=== PATIENT | female | born 1980 | race Caucasian/White ===

== ENCOUNTER → 2020-09-23 17:39 | Outpatient (CLI) | payer BC, OTHER, SELFPAY ==
--- NOTE | ~2020-09-23 | MM_ITS ---
EXAMINATION: MM screening [facility] BI w aldair HISTORY: Screening mammogram TECHNIQUE: Craniocaudal and mediolateral oblique 3-D tomosynthesis images were obtained and synthetic 2-D images were generated. CAD analysis was submitted and interpreted. COMPARISON: 09/14/2015 BREAST PARENCHYMAL COMPOSITION: The breasts are heterogeneously dense, which may obscure small masses . FINDINGS: RIGHT BREAST: There is no evidence of suspicious mass, calcification, or architectural distortion to suggest malignancy. There has been no significant interval change. LEFT BREAST: An asymmetry is present in the posterior third of the breast in line with the nipple axi s on the craniocaudal view. IMPRESSION: 1. Left breast asymmetry on the craniocaudal view. 2. Additional mammographic views and possible breast ultrasound are recommended. BI-RADS Category 0: Incomplete: Needs additional imaging evaluation. Reviewed, dictated and finalized at location A. IMPRESSION: 1. Left breast asymmetry on the craniocaudal view. 2. Additional mammographic views and possible breast ultrasound are recommended . BI-RADS Category 0: Incomplete: Needs additional imaging evaluation.
== END ==
PROVIDERS: Visit Provider Nurse Practitioner Obstetrics & Gynecology
DX: Z12.31 Encounter for screening mammogram for malignant neoplasm of breast (principal); R92.8 Other abnormal and inconclusive findings on diagnostic imaging of breast
CPT/HCPCS: 77063; 77067

== ENCOUNTER 2020-10-19 12:39 | Outpatient (CLI) | payer BC, OTHER, SELFPAY ==
--- NOTE | ~2020-10-19 | MMUS_ITS ---
EXAMINATION: MM diagnostic [facility]ary LT w aldair, US breast LT complete HISTORY: Follow-up left breast asymmetry TECHNIQUE: Additional 3-D tomosynthesis images of the left breast were performed and synthetic 2-D im ages were generated. CAD analysis was submitted and interpreted. High resolution complete left breast ultrasound was performed. COMPARISON: Comparison to multiple prior studies sequentially, with oldest reviewed study dated 10/2015. BREAST PARENCHYMAL COMPOSITION: The breasts are heterogenously dense, which may obscure small masses. FINDINGS: MAMMOGRAPHIC FINDINGS: There are no suspicious masses, calcifications or architectural distortion in the left breast to sugg est malignancy. ULTRASOUND: Complete left breast ultrasound: Normal heterogeneous echotexture without focal solid or cystic mass. IMPRESSION: 1. No evidence for malignancy in the left breast. 2. Routine yearly screening mammogram and regular clinical breast examination are recommended. BI-RADS Category 1: Negative Reviewed, dictated and finalized at location A. IMPRESSION: 1. No evidence for malignancy in the left breast. 2. Routine yearly screening mammogram and regular clinical breast examination a re recommended. BI-RADS Category 1: Negative
== END 2020-10-19 12:40 | disposition home or self-care (01) ==
LOC: ANHIMG 12:44
PROVIDERS: Visit Provider Nurse Practitioner Obstetrics & Gynecology
DX: R92.8 Other abnormal and inconclusive findings on diagnostic imaging of breast (principal)
CPT/HCPCS: 76641; 77061; 77065; G0279

== ENCOUNTER 2021-12-13 10:15 | Outpatient (CLI) | payer BC, OTHER, SELFPAY ==
--- NOTE | ~2021-12-13 | MM_ITS ---
EXAMINATION: MM screening [facility] BI w aldair HISTORY: Screening mammogram TECHNIQUE: Craniocaudal and mediolateral oblique 3-D tomosynthesis images were obtained and synthetic 2-D images were generated. CAD analysis was submitted and interpreted. COMPARISON: 10/19/2020 diagnostic left mammogram and complete left breast ultrasound examination 09/23/2020, 09/24/2015 bilateral screening mammogram examinations BREAST PARENCHYMAL COMPOSITION: The breasts are heterogeneously dense, which may obscure small masses . FINDINGS: Stable mild fibroglandular asymmetry. There is no evidence of suspicious mass, calcificatio n, or architectural distortion to suggest malignancy in either breast. There has been no suspicious i nterval change. IMPRESSION: 1. No mammographic evidence of malignancy. 2. Recommend routine screening mammography in one year. BI-RADS Category 1: Negative Reviewed, dictated and finalized at location A. 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
== END 2021-12-13 10:16 | disposition home or self-care (01) ==
PROVIDERS: PCP Internal Medicine; Visit Provider Obstetrics & Gynecology
DX: Z12.31 Encounter for screening mammogram for malignant neoplasm of breast (principal)
CPT/HCPCS: 77063; 77067

== ENCOUNTER → 2022-12-21 15:46 | Outpatient (CLI) | payer BC, OTHER, SELFPAY ==
--- NOTE | ~2022-12-21 | MM_ITS ---
EXAMINATION: MM screening [facility] BI w aldair HISTORY: Screening mammogram TECHNIQUE: Craniocaudal and mediolateral oblique 3-D tomosynthesis images were obtained and synthetic 2-D images were generated. CAD analysis was submitted and interpreted. COMPARISON: 12/13/2021, 10/19/2020, 09/23/2020 BREAST PARENCHYMAL COMPOSITION: The breasts are heterogeneously dense, which may obscure small masses . FINDINGS: No suspicious mass, calcification, or architectural distortion are identified in either nik ast to suggest malignancy. There has been no suspicious interval change. IMPRESSION: 1. No mammographic evidence of malignancy. 2. Recommend routine screening mammography in one year. BI-RADS Category 1: Negative Reviewed, dictated and finalized at location A. [employer]
== END ==
PROVIDERS: PCP Nurse Practitioner Obstetrics & Gynecology; Visit Provider Nurse Practitioner Obstetrics & Gynecology
DX: Z12.31 Encounter for screening mammogram for malignant neoplasm of breast (principal)
CPT/HCPCS: 77063; 77067

== ENCOUNTER 2023-05-10 08:28 | Outpatient (CLI) | payer BC, OTHER, SELFPAY ==
[2023-05-10 13:13] LABS: Basophils Absolute Auto 0.1 K/mm3 (0.0-0.1); Basophils Percent Auto 0.7 % (0.2-1.2); Eosinophils Absolute Auto 0.1 K/mm3 (0-0.3); Eosinophils Percent Auto 0.9 % (0-4.4); Hematocrit 42.2 % (37.0-47.0); Hemoglobin 13.8 g/dL (12.0-15.0); Immature Granulocyte Absolute 0.02 K/mm3 (0.00-0.031); Immature Granulocyte Percent A 0.3 % (0-0.5); Lymphocytes Absolute Auto 1.59 K/mm3 (0.9-3.2); Lymphocytes Percent Auto 23.2 % (18.3-44.2); Mean Corpuscular HGB Conc 32.7 g/dl (32-36); Mean Corpuscular Hemoglobin 31.4 pg (26-34); Mean Corpuscular Volume 96.1 fl (80-100); Mean Platelet Volume 11.2 fl (7.4-10.4); Monocytes Absolute Auto 0.4 K/mm3 (0.1-0.6); Monocytes Percent Auto 5.8 % (2.6-8.5); Neutrophils Absolute Auto 4.7 K/mm3 (1.3-6.7); Neutrophils Percent Auto 69.1 % (45.5-73.1); Platelet Count Result 184 k/mm3 (150-375); Red Blood Count 4.39 M/mm3 (4.2-5.4); Red Cell Distribution Width 11.8 % (11.5-14.5); White Blood Count 6.9 K/mm3 (4.5-10.0)
[2023-05-10 13:24] LABS: Alanine Aminotransferase 15 U/L (6-35); Albumin Level 4.3 g/dL (3.5-5.1); Alkaline Phosphatase 65 U/L (38-126); Anion Gap 5 mmol/L (4-12); Aspartate Amino Transferase 52 U/L (14-36); Bilirubin,Total 0.5 mg/dL (0.2-1.3); Blood Urea Nitrogen 17 mg/dL (7-17); Calcium 9.6 mg/dL (8.4-10.2); Carbon Dioxide 25 mmol/L (22-30); Chloride 107 mmol/L (98-107); Cholesterol 157 mg/dL (0-200); Estimated Glomerular Filt Rate > 60; Glucose 94 mg/dL (65-110); HDL Direct 49 mg/dL; Potassium 4.7 mmol/L (3.4-5.0); Sodium 137 mmol/L (137-145); Triglycerides 120 mg/dL (<150)
[2023-05-10 21:24] LABS: LDL Cholesterol Direct 84 mg/dL
== END 2023-05-10 08:29 | disposition home or self-care (01) ==
LOC: ANHGOSHLAB 08:30
PROVIDERS: PCP Internal Medicine; Visit Provider Internal Medicine
DX: E66.9 Obesity, unspecified (principal); R03.0 Elevated blood-pressure reading, without diagnosis of hypertension; Z13.220 Encounter for screening for lipoid disorders; Z13.29 Encounter for screening for other suspected endocrine disorder
CPT/HCPCS: 36415; 80053; 80061; 85025

== ENCOUNTER 2023-07-19 08:32 | Outpatient (CLI) | payer BC, OTHER, SELFPAY ==
[2023-07-19 16:19] LABS: Alanine Aminotransferase 14 U/L (6-35); Albumin Level 4.6 g/dL (3.5-5.1); Alkaline Phosphatase 69 U/L (38-126); Aspartate Amino Transferase 44 U/L (14-36); Bilirubin,Total 0.6 mg/dL (0.2-1.3)
== END 2023-07-19 08:33 | disposition home or self-care (01) ==
PROVIDERS: PCP Internal Medicine; Visit Provider Internal Medicine
DX: R74.01 Elevation of levels of liver transaminase levels (principal)
CPT/HCPCS: 36415; 80076

== ENCOUNTER 2023-09-04 08:10 | Outpatient (CLI) | payer BC, OTHER, SELFPAY ==
[2023-09-04 18:51] LABS: Alanine Aminotransferase 17 U/L (6-35); Albumin Level 4.3 g/dL (3.5-5.1); Alkaline Phosphatase 70 U/L (38-126); Aspartate Amino Transferase 26 U/L (14-36); Bilirubin,Total 0.6 mg/dL (0.2-1.3)
== END 2023-09-04 08:11 | disposition home or self-care (01) ==
LOC: ANHGOSHLAB 08:12
PROVIDERS: PCP Internal Medicine; Visit Provider Internal Medicine
DX: R74.01 Elevation of levels of liver transaminase levels (principal)
CPT/HCPCS: 36415; 80076

== ENCOUNTER 2024-02-01 09:00 | Outpatient (CLI) | payer BC, OTHER, SELFPAY ==
--- NOTE | ~2024-02-01 | MM_ITS ---
EXAMINATION: MM screening [facility] BI w aldair HISTORY: Screening TECHNIQUE: Craniocaudal and mediolateral oblique 3-D tomosynthesis images were obtained and synthetic 2-D images were generated. CAD analysis was submitted and interpreted. COMPARISON: 12/21/2022 and dating back to 09/14/2015 BREAST PARENCHYMAL COMPOSITION: The breasts are heterogeneously dense, which may obscure small masses . FINDINGS: Punctate calcifications detected bilaterally, stable and benign in appearance, dermal in or igin. Stable parenchymal pattern without suspicious microcalcifications, architectural distortion, discrete masses or significant asymmetry. IMPRESSION: 1. No mammographic evidence of malignancy. 2. Recommend routine screening mammography in one year. BI-RADS Category 2: Benign finding(s). Reviewed, dictated and finalized at location A. 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
--- OUTSIDE RECORDS SUMMARY | 2024-02-09 00:01 | XMS_ITS | Continuity of Care Document ---
Author Organization [facility], [place] Address [address] [address] [place] [address] Care Team Providers Care Non Destructive Testing Supervisor Name Role Phone TRISTAN MARTINEZ Primary Care Provider Assessment Encounter Date Assessment Date Assessment LastModified by Organization Details LastModified Time 12/13/2023 12/13/2023 Annual gynecological exam performed. Patient will come back in a year unless there are new symptoms. Not available 11/26/2023 12:37:09 Plan of Treatment Reminders Order Date Submit Date Provider Last Modified By Organization Details Last Modified Time Details Appointments None recorded. Lab pap, IG + HR HPV - HPV regardless but if HPV is positive need subtyping 16,18/45Add CT/GC/Trich 2023 [facility] (Lab), [address], [place], [address], 4 10:55:04 Referral None recorded. Procedures None recorded. Surgeries None recorded. Imaging MAMMO, screening, digital, bilateral 2023 024 [facility], [address], [facility], [place], [address], 4 04:02:17 Medication Orders None recorded. Patient TargetsNo targets recorded. Patient InstructionsNo instructions recorded. Reason for Referral None Reported. Results Created Date Observation Date Name Description Value Unit Range Abnormal Flag Note LastModifiedBy Organization Detail LastModifiedTime 02/01/20 24 02/01/2024 imagi ng/di agnos tic resul t No observ ation record ed. [facility] [address], [place], [address], 02/05/2024 12:42:32 Result Notes None recorded. Problems Name Problem SNOMED Code Status Onset Date Resolution Date Notes Provider Name and Address Organization Details Recorded Time Elevated blood-pr essure reading without diagnosi s of hyperten magen [id number] Completed 201509/06/2020 Elevated blood-pr essure reading, without diagnosi s of hyperten magen;Rec orded Elsewher e: No Locat ion: [facility] S ource: [employer] neelima: N Madelinti ce ID: 0001 Jonny lable Time: 04:45:00 PM Eneida hyman [facility] 17:06:23 Venereal disease screenin g Completed 201409/06/2020 Screenin g examinat ion for venereal disease; Recorded Elsewher e: No Locat ion: [facility] S ource: [employer] neelima: N Madelinti ce ID: 0001 Jonny lable Time: 08:30:00 AM Eneida hyman, [facility] 17:07:20 Pregnanc y test positive [id number] Completed 201109/06/2020 Pregnanc y examinat ion or test, positive result;R ecorded Elsewher e: No Locat ion: [facility] S ource: [employer] neelima: N Practi ce ID: 0001 Jonny lable Time: 11:00:00 AM Eneida hyman [facility] 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 1 17:07:10 Steriliz ation procedur e Completed 201609/06/2020 Encounte r for steriliz ation;Re corded Elsewher e: No [facility] S ource: [employer]ceiver neelima: N Madelinti ce ID: 0001 Jonny lable Time: 09:00:00 AM Eneida Antunez [facility], [facility] 1 17:07:15 Atypical squamous cells of undeterm ined signific ance on cervical Papanico laou smear [id number] Completed 201809/06/2020 Atyp squam cell of undet signfc cyto smr crvx (ASC-US) ;Recorde d Elsewher e: No Locat ion: [facility] S ource: [employer] neelima: N Alejandra ce ID: 0001 Jonny lable Time: 08:15:00 AM Eneida Antunez [facility] 1 17:06:19 Placenta previa with hemorrha ge - not delivere d [id number] Completed 201109/06/2020 Hemorrha ge from placenta previa, antepart um;Recor ded Elsewher e: No Locat ion: [facility] S ource: [employer] neelima: N Alejandra ce ID: 0001 Jonny lable Time: 08:15:00 AM Eneida Antunez [facility], [facility] 1 17:06:50 Pregnanc y test negative [id number] Completed 201409/06/2020 Encounte r for pregnanc y test, result negative ;Recorde d Elsewher e: No Locat ion: [facility] S ource: [employer] neelima: N Madelinti ce ID: 0001 Jonny lable Time: 08:30:00 AM Eneida Antunez [facility] 1 17:06:53 Malaise and fatigue [id number] Completed 201409/06/2020 Fatigue / Malaise; Recorded Elsewher e: No Locat ion: Conrad cerna [facility]: N Madelinti ce ID: 0001 Jonny lable Time: 08:30:00 AM Eneida Antunez [facility] 17:06:44 Screenin g for malignan t neoplasm of cervix Completed 201109/06/2020 Screenin g for malignan t neoplasm s of the cervix;R ecorded Elsewher e: No Locat ion: Siomara nehemiah [facility] S ource: [facility] neelima: N Madelinti ce ID: 0001 Jonny lable Time: 11:00:00 AM Eneida Antunez [facility] 17:07:02 Pelvic and perineal pain [id number] Completed 201809/06/2020 Pelvic and perineal pain;Rec orded Elsewher e: No Locat ion: Conrad cerna [facility] S ource: [facility] neelima: N Madelinti ce ID: 0001 Jonny lable Time: 09:45:00 AM Eneida Antunez [facility] 17:06:48 Body mass index 30+ - obesity [id number] Completed 201506/29/2020 Body mass index (BMI) 31.0-31. 9, adult;Re corded Elsewher e: No [facility]: [facility] neelima: N Madelinti ce ID: 0001 Jonny lable Time: 04:45:00 PM Eli Alford [facility] 1 10:02:38 Family planning surveill ance Completed 201209/06/2020 Contrace ptive surveill ance, unspecif ied;Thony rded Elsewher e: No [facility] neelima: N Madelinti ce ID: 0001 Jonny lable Time: 11:00:00 AM Eneida Antunez [facility] 17:06:[address] Concept Completed 201609/06/2020 Encntr for general adult medical exam w/o abnormal findings ;Recorde d Elsewher e: No Locat ion: [facility] S ource: [employer] neelima: N Madelinti ce ID: 0001 Jonny lable Time: 09:30:00 AM Eneida Antunez [facility] 17:07:07 Removal of intraute rine device Completed 201609/06/2020 Encounte r for removal of intraute rine contrace ptive device;R ecorded Elsewher e: No Locat ion: [facility] S ource: [employer] neelima: N Madelinti ce ID: 0001 Jonny lable Time: 08:45:00 AM Eneida Antunez [facility] 17:06:58 Hyperten sive disorder [id number] Completed 201709/06/2020 HTN;Thony rded Elsewher e: No Locat ion: [facility] S ource: [employer] neelima: N Madelinti ce ID: 0001 Jonny lable Time: 08:30:00 AM Eneida Antunez [facility] 17:06:32 Low grade squamous intraepi thelial lesion on cervical Papanico laou smear [id number] 105 Completed 201809/06/2020 Low grade intrepit h lesion cyto smr crvx (LGSIL); Recorded Elsewher e: No Locat ion: [facility] S ource: [employer] neelima: N Madelinti ce ID: 0001 Jonny lable Time: 08:15:00 AM Eneida Antunez [facility] 17:06:39 Adult health examinat ion Completed 201106/29/2020 Routine Medical Exam;Rec orded Elsewher e: No Locat ion: [facility] S ource: [employer] neelima: N Madelinti ce ID: 0001 Jonny lable Time: 02:45:00 PM Eli Alford [facility] 10:02:31 Contrace ptive sheath status [id number] Completed 201706/29/2020 Encounte r for initial prescrip tion of other contrace ptives;R ecorded Elsewher e: No Locat ion: [facility] S ource: [employer] neelima: N Madelinti ce ID: 0001 Jonny lable Time: 01:00:00 PM Eli Alford [facility] 1 10:02:43 Speciali zed medical examinat ion Completed 201409/06/2020 Other specifie d chlamydi al diseases ;Recorde d Elsewher e: No Locat ion: [facility] S ource: [facility] neelima: N Madelinti ce ID: 0001 Jonny lable Time: 08:30:00 AM Eneida Antunez [facility] 1 17:07:13 Abdomina l bloating [id number] Completed 201806/29/2020 Bloating ;Recorde d Elsewher e: No Locat ion: [facility] S ource: [employer] neelima: N Madelinti ce ID: 0001 Jonny lable Time: 01:30:00 PM Eliamalia Alford [facility] 1 10:02:29 Clinical finding Completed 201906/29/2020 Abnormal findings on dx imaging of [facility] body structur es;Recor ded Elsewher e: No Locat ion: [facility] S ource: [employer] Re[employer] neelima: N Madelinti ce ID: 0001 Jonny lable Time: 08:15:00 AM Eli Alford [facility] 1 10:02:41 Obesity [id number] Completed 201409/06/2020 Obesity; Recorded Elsewher e: No Locat ion: [facility] S ource: [employer] neelima: N Practi ce ID: 0001 Jonny lable Time: 08:30:00 AM Eneida Antunez [facility] 17:06:47 Evaluati on finding Completed 201806/29/2020 Unsp abnormal cytolog findings in specmn from cervix uteri;Re corded Elsewher e: No Locat ion: [facility] S ource: [employer] neelima: N Practi ce ID: 0001 Jonny lable Time: 01:30:00 PM Eli Alford [facility] 10:02:57 Lymphade nopathy [id number] Completed 201109/06/2020 Enlargem ent of lymph nodes;Re corded Elsewher e: No Locat ion: [facility] S ource: [employer] Receiver neelima: N Practi ce ID: 0001 Jonny lable Time: 11:00:00 AM Eneida Antunez [facility] 1 17:06:42 Educatio n Completed 201606/29/2020 Encounte r for oth general cnsl and advice on contrace ption;Pr actice ID: 0001 Eli Alford [facility] 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 17:07:09 Lesion of ovary Completed 201806/29/2020 Other ovarian cyst, left side;Pra ctice ID: 0001 Eli hyman [facility] 10:02:50 Mild hypereme sis-not delivere d [id number] Completed 201109/06/2020 Mild hypereme sis gravidar um, antepart um;Recor ded Elsewher e: No Locat ion: Conrad cerna [facility] S ource: [employer] neelima: N Practi ce ID: 0001 Jonny lable Time: 03:00:00 PM Eneida Antunez [facility] 1 17:06:45 Speciali zed medical examinat ion Completed 201209/06/2020 Gynecolo gical Examinat ion;Thony rded Elsewher e: No Locat ion: [facility] nehemiah [facility] S ource: [employer] Receiver neelima: N Practi ce ID: 0001 Jonny lable Time: 08:30:00 AM Eneida Antunez [facility] 1 17:07:12 Lesion of ovary Completed 201806/29/2020 Other ovarian cyst, unspecif ied side;Rec orded Elsewher e: No [facility] S ource: [employer] Receiver neelima: N Practi ce ID: 0001 Jonny lable Time: 04:11:41 PM Eli hyman [facility] 1 10:02:52 Infectio n screenin g Completed 201409/06/2020 Encounte r for screenin g for oth infec/pa rastc diseases ;Recorde d Elsewher e: No Locat ion: [facility] S ource: [employer] neelima: N Madelinti ce ID: 0001 Jonny lable Time: 08:30:00 AM Eneida Antunez [facility] 1 17:06:34 Routine antenata l care Completed 201109/06/2020 Supervis ion of other normal pregnanc y;Record ed Elsewher e: No Locat ion: [facility] S ource: [employer] Receiver neelima: N Practi ce ID: 0001 Jonny lable Time: 11:00:00 AM Eneida Antunez [facility] 1 17:07:00 Syphilis test finding [id number] Completed 201409/06/2020 Encntr screen for infectio ns w sexl mode of transmis s;Record ed Elsewher e: No Locat ion: Conrad cerna [facility] S ource: [employer] Receiver neelima: N Practi ce ID: 0001 Jonny lable Time: 08:30:00 AM Eneida Antunez [facility] 17:07:16 Insertio n of intraute rine contrace ptive device Completed 201209/06/2020 INSERTIO N OF IUD;Thony rded Elsewher e: No Locat ion: [facility] S ource: [employer] Receiver neelima: N Practi ce ID: 0001 Jonny lable Time: 01:15:00 PM Eneida Antunez [facility] 17:06:35 Primigra carter [id number] Completed 201109/06/2020 Supervis ion of normal first pregnanc y;Record ed Elsewher e: No [facility] [employer] Receiver neelima: N Practi ce ID: 0001 Jonny lable Time: 02:30:00 PM Eneida Antunez [facility] 17:06:56 Postpart um care Completed 201109/06/2020 Routine postpart um follow-u p;Record ed Elsewher e: No Locat ion: [facility] S ource: [employer] Receiver neelima: N Practi ce ID: 0001 Jonny lable Time: 09:15:00 AM Eneida Antunez [facility] 17:06:51 Irregula r intermen strual bleeding [id number] Completed 201209/06/2020 Metrorrh agia;Rec orded Elsewher e: No Locat ion: [facility] S ource: [employer] Receiver neelima: N Practi ce ID: 0001 Jonny lable Time: 11:00:00 AM Eneida Antunez [facility] 1 17:06:37 Human papillom avirus deoxyrib onucleic acid detected , high risk on cervical specimen [id number] Completed 201809/06/2020 Cervical high risk HPV DNA test positive ;Recorde d Elsewher e: No [facility] ource: [employer] Receiver neelima: N Alejandra ce ID: 0001 Jonny lable Time: 04:11:41 PM Eneida Antunez [facility], [facility] 1 17:06:28 Hypereme sis gravidar um with metaboli c disturba nce - not delivere d [id number] Completed 201109/06/2020 Hypereme sis gravidar um with metaboli c disturba nce, antepart um;Recor ded Elsewher e: No Locat ion: [facility] S ource: [employer] Receiver neelima: N Alejandra ce ID: 0001 Jonny lable Time: 02:45:00 PM Eneida Antunez [facility], [facility] 1 17:06:30 Amenorrh ea [id number] Completed 201106/29/2020 Absence of menstrua tion;Rec orded Elsewher e: No Locat ion: [facility] S ource: [employer] Receiver neelima: Patel Roberts ce ID: 0001 Jonny lable Time: 11:00:00 AM Eli Alford [facility], [facility] 1 10:02:33 Central nervous system malforma tion in fetus affectin g obstetri danielle care [id number] Completed 201109/06/2020 Central nervous system malforma tion in fetus, antepart um;Recor ded Elsewher e: No Locat ion: [facility] S ource: [employer] Milk Receiver neelima: N Madelinti ce ID: 0001 Jonny lable Time: 02:00:00 PM Eneida Antunez [facility], [facility] 1 17:06:20 anatomy study Completed 201109/06/2020 SCRN ANATMC SURVEY;P ractice ID: 0001 Eneida hyman, [facility] 17:06:27 Complica tion related to pregnanc y Completed 201109/06/2020 Unspecif ied antepart um complica tion;Pra ctice ID: 0001 Eneida Antunez [facility], [facility] 17:06:22 Twin pregnanc y with antenata l problem [id number] Completed 201109/06/2020 Twin pregnanc y, antepart um conditio n or complica tion;Pra ctice ID: 0001 Eneida Antunez [facility], [facility] 17:07:19 Delivery normal [id number] Completed 201106/29/2020 Normal delivery ;Practic e ID: 0001 Eli Alford [facility], [facility] 10:02:47 Single live [id number] Completed 201109/06/2020 Mother with single liveborn ;Practic e ID: 0001 Eneida Antunez [facility], [facility] 17:07:06 Screenin g for malignan t neoplasm of rectum Completed 201409/06/2020 Screenin g for malignan t neoplasm s of the rectum;P ractice ID: 0001 Eneida Antunez [facility], [facility] 17:07:04 Problem Notes None recorded. Procedures Surgical History Date Name Laterality Status Provider Name and Address Organization Details Recorded Time 06/12/19 24 Date of Last Pap Smear completed Lizzette Mei [facility] 11/26/2023 12:36:21 12/22/19 23 Date of Last Mammogram completed Adina Powell [facility] 06/12/2023 09:49:35 11/24/19 23 Colposcopy completed FAUSTO Tomlin-[facility] [address], [place], [address], [facility] 11/23/2022 16:58:09 11/24/19 23 Colposcopy completed Adina Powell [facility] 11/23/2022 15:51:19 10/14/19 20 IUD Insertion completed Gabo Sousa MD [address], [place], [address], [facility] 10/14/2019 17:47:10 02/05/18 97 LEEP completed Eli Alford [facility] 06/28/2020 14:27:13 02/05/18 84 plastic repair procedure completed Mary Jane Vargas [facility] 12/13/2021 10:06:01 [facility] 08/29/2019 15:10:46 [facility]lect[facility] 15:11:04 Imaging Results None recorded. Procedure Notes None recorded. Medical Equipment None Reported. Allergies Allergen ID Allergen Name Allergen Category Reaction Reaction Severity Criticality Documentation Date Start Date Code Code System Note Provider Name and Address Organization Details Recorded Time 1444 Substance with sulfonami de structure and antibacte rial mechanism of action (substanc e) medicatio n Not available Not available Not available 08/29/2019 64732 8003 SNOMED Janis Dodson null, [facility] 0 15:09:06 Medications Name Sig Start Date Stop Date Status Note LastModified by Organization Details LastModified Time amoxicill in 500 mg capsule take 1 capsule (500MG) by oral route every 8 hours for 10 days 11/24 completed Prescrib ed Elsewher e: No [facility] odify By: tgingric h Encoun ter DateTime : 11/16/19 12 08:30:00 AM Not Available Not Available Not Available Mirena 21 mcg/24 hr (up to 8 years) 52 mg intrauter ine device 01/22 completed Prescrib ed Elsewher e: Yes [facility]oca [facility] odify By: gabo Nehemiah diana DateTime : 08/29/19 17 09:00:00 AM Not Available Not Available Not Available clindamyc in 1 %-benzoyl peroxide 5 % topical gel 09/07 completed Not Available Not Available Not Available Reglan 10 mg tablet take 1 tablet (10MG) by oral route 4 times every day 30 minutes before meals and at bedtime 02/13 completed Prescrib ed Elsewher e: No Locat ion: Conrad cerna [facility] odify By: odilia felipe DateTime : 04/07/19 12 02:45:00 PM Not Available Not Available Not Available Multi-Vit silver HP/Minera ls capsule 03/31 completed Prescrib ed Elsewher e: Yes [facility] By: david Encounte r DateTime : 02/07/19 19 08:15:00 AM Not Available Not Available Not Available Metrogel Vaginal 0.75 % (37.5 mg/5 gram) insert 1 applicat orful by vaginal route every day at bedtime 07/27 completed Prescrib ed Elsewher e: No [facility] By: david Encounte r DateTime : 01/06/20 15 08:30:00 AM Not Available Not Available Not Available Vitamin D2 1,250 mcg (50,000 unit) capsule take 1 capsule by oral route every week for 8 weeks. 08/09 completed Prescrib ed Elsewher e: No Locat ion: [facility] odify By: mariza ortiz DateTime : 01/08/20 15 01:13:07 PM Not Available Not Available Not Available ParaGard T 380A 380 square mm intrauter ine device Take by intraute rine route. active Not Available Not Available No t Available spironola ctone 50 mg tablet take 1 tablet (50MG) by oral route every day 07/21 completed Prescrib ed Elsewher e: No Locat ion: Conrad cerna [facility] odify By: nicolle Gallardo r DateTime : 06/13/19 13 08:30:00 AM Not Available Not Available Not Available amoxicill in 875 mg-potass ium clavulana te 125 mg tablet TAKE 1 TABLET BY MOUTH TWICE DAILY 12/12 completed Not Available Not Available Not Available Vitamin C 500 mg capsule,e xtended release 07/21 completed Prescrib ed Elsewher e: Yes Loca tion: Conrad cerna [facility] odify By: nicolle Gallardo r DateTime : 02/13/19 13 01:15:00 PM Not Available Not Available Not Available Vitamins and Minerals tablet 01/05 completed Prescrib ed Elsewher e: Yes Loca tion: Conrad cerna [facility] odify By: [email or web address] anant Encoun ter DateTime : 02/13/19 13 01:15:00 PM Not Available Not Available Not Available Alta 0.35 mg tablet take 1 tablet by oral route every day 02/07 completed Prescrib ed Elsewher e: No Locat ion: Conrad cerna [facility] odify By: giovanni craftunter DateTime : 06/06/19 18 01:00:00 PM Not Available Not Available Not Available multivita min 11/02 completed Not Available Not Available Not Available B-12 Plus 5,000 mcg-100 mcg sublingua l tablet 07/21 completed Prescrib ed Elsewher e: Yes Loca tion: Conrad cerna [facility] odify By: nicolle Gallardo r DateTime : 02/13/19 13 01:15:00 PM Not Available Not Available Not Available Probiotic 10 billion cell capsule 03/31 completed Prescrib ed Elsewher e: Yes Loca tion: Conrad cerna [facility] odify By: david Gallardo r DateTime : 02/07/19 19 08:15:00 AM Not Available Not Available Not Available Triveen-D uo DHA 29 mg-1 mg-400 mg oral pack take 2 by Oral route every day for 30 days 04/28 completed Prescrib ed Elsewher e: No Locat ion: Conrad cerna [facility] odify By: azul ortiz DateTime : 03/31/19 12 11:00:00 AM Not Available Not Available Not Available Fish Oil 100 mg-160 mg-1,000 mg capsule 07/21 completed Prescrib rafat Rayo e: Yes Loca tion: Siomara nehemiah [facility] odify By: nicolle christensen DateTime : 02/13/19 13 01:15:00 PM Not Available Not Available Not Available Flucelvax Quad (PF) 60 mcg (15 mcg x 4)/0.5 mL IM syringe 09/06 completed Not Available Not Available Not Available Afluria Qd (36 mos up)(PF)60 mcg (15 mcg x4)/0.5 mL IM syringe ADM 0.5ML IM UTD 09/06 completed Not Available Not Available Not Available Vitals Date Recorded Body height Body mass index (BMI) Body weight Systolic blood pressure Diastolic blood pressure Provider Name and Address Organization Details Last Updated DateTime 12/13/2023 160.66 cm 31.3 kg/m2 59416.44 g 163 mm[Hg] 106 mm[Hg] Lizzette Trimbleton [facility] 4 09:27:38 Social History Question Answer Notes LastModified by Organizat ion Details LastModified Time Tobacco Smoking Status Never Smoker [facility] 09/06/2020 17:05:21 Do You Have An Advance Directive? No Information n ot available 06/29/2020 What Is Your Level Of Alcohol Consumption? Occasional [id number] Information not available 12/09/2019 How Many Years Have You Consumed Alcohol? 20 Information not available 06/29/2020 Are You Blind Or Do You Have Difficulty Seeing? No Information n ot available 06/29/2020 What Is Your Level Of Caffeine Consumption? Occasional Information not available 06/29/2020 How Much Tobacco Do You Chew? None Information not available 06/29/2020 In The 14 Days Before Symptom Onset, Have You Had Close Contact With A Laboratory-confirm ed COVID-19 While That Case Was Ill? No Information n ot available 06/29/2020 In The 14 Days Before Symptom Onset, Have You Had Close Contact With A Person Who Is Under Investigation For COVID-19 While That Person Was Ill? No Information not available 06/29/2020 Have You Been To An Area Known To Be High Risk For COVID-19? No Information not available 06/29/2020 Are You Deaf Or Do You Have Serious Difficulty Hearing? No Information not available 06/29/2020 What Type Of Diet Are You Following? REGULAR Information n ot available 06/29/2020 What Is The Highest Grade Or Level Of School You Have Completed Or The Highest Degree You Have Received? 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 No Information not available 09/06/2020 Do You Use Protection During Sex? No Information not available 06/29/2020 Do You Use Your Seat Belt Or Car Seat Routinely? Yes Information not available 06/29/2020 Do You Have Smoke And Carbon Monoxide Detectors In Your Home? Yes Information not available 06/29/2020 How Much Tobacco Do You Smoke? No Information not available 06/29/2020 Do You Feel Stressed (tense, Restless, Nervous, Or Anxious, Or Unable To Sleep At Night)? [id number] Information not available 09/06/2020 Do You Use Any Illicit Or Recreational Drugs? No Information not available 06/29/2020 Do You Use Sunscreen Routinely? Yes Information not available 06/29/2020 Have You Used IV Drugs? No Information not available 06/29/2020 Sex: Unknown Functional Status Question Answer Note LastModified by Organizat ion Details LastModified Time Do you have difficulty walking or climbing stairs? No [email or web address] Information not available 12/13/2021 Are you able to walk? YESWOREST Information not available 06/29/2020 Are you able to care for yourself? Yes [email or web address] Information not available 12/13/2021 Do you have difficulty dressing or bathing? No Information not available 12/13/2021 What is your exercise level? Moderate Information not available 09/06/2020 Mental Status None recorded. Family History Relationship Description Onset Age of this Age Resolved Age Notes LastModified by Organization Details LastModified Time Maternal Grandmother Aneurysm [email or web address] Not available 06/29 09:24:53 Father Hypertensive disorder [email or web address] Not available 2019 15:08:14 Father Malignant tumor of lung [email or web address] Not available 2023 09:29:01 Mother Cyst of ovary [email or web address] Not available 2020 09:24:53 Paternal Grandmother Congenital heart disease [email or web address] Not available 2020 09:24:53 Paternal Grandmother Diabetes mellitus [email or web address] Not available 2019 15:08:50 Medical History Condition Response Allergies (Food, seasonal, environmental ) N Other N Breast Cancer N Drug/Latex Allergies/Reactions Y Blood Transfusion N Dermatologic Disorders N Lung Disease N Defects or Inherited Disease N Breast Problem N Gestational Diabetes N Hematologic disorders N Anesthesia Complications N History of STI Y Deep Vein Thrombosis N Polycystic ovary syndrome N Anxiety Disorder N Autoimmune disease N Arthritis N Infertility N Polyps N Acid Reflux (GERD) N History of abnormal pap Y Cancer N Stroke N Varicosities N Neurologic/Epilepsy N Endometriosis N High Cholesterol N Headaches N Fibromyalgia N Kidney Disease N Heart Problems N Kidney or Bladder Problems N Thyroid Problems N GI Problems N Eating Disorder N Anemia N Art (IVF or FET) N Psychiatric Illness N Ovarian Cancer N Diabetes N Pulmonary (TB, Asthma) N Hepatitis/Liver Disease N No Past Medical History N Eczema N Urinary Tract Infection N Abuse/Domestic Violence N Asthma N Trauma/Violence N Depression/ depression N Heart Disease N Pre-Eclampsia N Hypertension N Osteoporosis N Thrombophilias N Gynecological History Statement/Question Response Abnormal Pap Yes Flow Heavy Date of Last Mammogram 12/21/2022 Date of LMP 11/24/2023 N On BCP's at Conception? N STIs/STDs Yes Was last menstrual period normal Y HPV Vaccine Y Colposcopy 11/23/2022 Duration of Flow (days) 7 Current Control Method IUD 12 Age at First Child 26 Are cycles usually normal Y Frequency of Cycle (Q days) 24 Sexually Active? Y IUD Menses Monthly Y Date of Last Pap Smear 06/12/2023 Sexual Problems? N LMP Definite N Obstetrics History GPAL:G 2 P 0 0 0 2 Type Value Living 2 Total 2 Past Encounters Encounter ID Performer Location Encounter Start Date Encounter Closed Date Diagnosis/Indication Diagnosis SNOMED-CT Code Diagnosis ICD10 Code [id number] UBALDO DURON NP [place] [address] [address] 12/13/2023 09:19:46 12/13/2023 10:13:59 Gynecologic examination 06214886 Z01.419 Screening mammography 24 938301 Z12.31 Contracept ion care management 814849496 Z30.9 Venereal d isease screening 495262219 Z11.3 Elevated blood-pressure reading without diagnosis of hypertension 931143849 R03.0 Health Concerns Section Related Observation LastModified by Organization Detai ls LastModified Time None Recorded Concern Status LastModified by Organization Details LastModified Time None Recorded Payers Encounter Date Sequence Insurance Name Policy Number Policy Adams Covered Member ID Adams Member ID Guarantor Name 12/13/2023 1 [place] [id number] Trish Greenfield Guess [id number] Trish Nieto 12/13/2023 2 [employer] [id number] Felix Greenfield Guess [id number] Trish Nieto Notes Date Note Type Note Provider Name and Address Organization Details Recorded Time 12/13/2023 text/html Annual GYNReport ed bypatient.History: no gynecologic complaints Menstrual cycle:Normal menses Urinary symptoms:No hematuria; No incontinence Vulva:No genital lesion Vagina:Normal vaginal discharge Breast:No breast pain; No breast lump; No nipple discharge Sexual complaints:No sexual complaints; No pain during intercourse; Normal libido Menopausal Symptoms:No menopausal symptoms; Normal vaginal lubrication Psychological symptoms:No depression; No anxiety; No PMDD Preventive measures:Encourage self breast examination; Encourage regular exercise; Encourage no tobacco use; Encourage regular mammograms starting age 40; Followed with yearly pap smears; History of abnormal pap smear/cervical dysplasia; Needs to schedule mammogram Patient presents for annual well woman exam. Patient denies concerns today. UBALDO DURON NP [address], [place], [address], [facility] 12/13/2023 10:12:57 OBGyn Episode No OBEpisode recorded.
--- OUTSIDE RECORDS SUMMARY | 2024-02-09 00:01 | XMS_ITS | Data Portability ---
Author Organization [facility] [place] Address [address] [place] [address] [place] [address] Care Team Providers Care Catering Administrative Assistant Name Role Phone TRISTAN MARTINEZ Primary Care Provider [phone] Assessment Encounter Date Assessment Date Assessment LastModified by Organization Details LastModified Time 11/02/2022 11/02/2022 Annual gynecological exam performed. Patient will come back in a year unless there are new symptoms. [email or web address] Not available 11/02/2022 09:44:02 12/13/2023 12/13/2023 Annual gynecological exam performed. Patient will come back in a year unless there are new symptoms. Not available 11/26/2023 12:37:09 Plan of Treatment Reminders Order Date Submit Date Provider Last Modified By Organization Details Last Modified Time Details Appointments None recorded. Lab test, urine 2022 023 [email or web address] [place], [address], [place], [address], 3 15:51:57 pap, IG + HR HPV - HPV regardless but if HPV is positive need subtyping 16,18/45Add CT/GC/Trich 2023 024 [facility] (Lab), [address], [place], [address], 4 10:55:04 Referral None recorded. Procedures None recorded. Surgeries None recorded. Imaging MAMMO, screening, digital, bilateral [email or web address] [facility], [address], [place], [address], 3 11:09:57 MAMMO, screening, digital, bilateral 2023 024 [facility], [address], [address], [place], [address], 4 04:02:17 Medication Orders None recorded. Patient TargetsNo targets recorded. Patient InstructionsNo instructions recorded. Reason for Referral None Reported. Results Created Date Observation Date Name Description Value Unit Range Abnormal Flag Note LastModifiedBy Organization Detail LastModifiedTime 11/03/1911/02/2022 IMAGE GUIDE D PAP AND HPV REGAR DLESS image guided Pap, HPV regardless of Pap result SEE RESULT S BELOW abnormal CASE REPOR T: Cytol ogy Gynec ologi tessa Repor t Case: [id number] Autho sree abdi Provi coco: Raudel Cisneros Colle cted: 11/02 1513 MARKETING SYSTEMS ANALYST Order ing Locat ion: [place] Patho logy Recei nestor: 11/03 0719 First Scree n: Strbhupinder z, Vega am, CT Patho logis t: Sean Vera MD Speci men: Scree shanae Pap - Image d, Cervi x STATE MENT OF ADEQU ACY: Satis facto ry for evalu ation Trans forma tion zone compo nent prese nt FINAL DIAGN OSIS: Epith elial Cell Abnor malit y, Squam ous Cell: Atypi tessa Squam ous Cells of Undet ermin ed Arceliai sarita jaeger (ASC- [place]). Elect raissa mccartney by Sean Vera MD on 2022 at 4:54 PM ----- ----- ----- ----- ----- ----- ----- ----- ----- ----- ----- ----- ----- ----- ----- ----- ----- ---- HPV RESUL TS: HPV mRNA E6/E7 : No HPV mRNA Detec star NOTE: This high risk HPV mRNA assay detec ts fourt een high- risk HPV types (16, 18, 31, 33, 35, 39, 45, 51, 52, 56, 58, 59, 66, 68) witho ut diffe renti ation . COMME NT: This speci men was revie wed by a Cytot echno logis t and/o r Patho logis t (as indic ated in this repor t) after evalu ation using the Thinp rep Imagi ng Syste m. CLINI TESSA INFOR MATIO N: Menst rual Statu s: LMP (if appli cable ): Clini tessa Histo ry/Pr eviou s Pap: Type of Neopl eva (if appli cable ): Signi fican t Clini tessa Findi ngs: Other Histo ry: Hormo rjei (if appli cable ): SUGGE STED FOLLO W-UP: Follo w up as warra nted, based on curre nt guide lines and indiv idual patie nt consi derat ions. Not Available [facility] (Lab) [address], [place], [address], 11/07/2022 17:57:39 11/24/19 23 11/27/2022 BIOPS Y, ENDOC ERVIC AL endocervical curettage histology LSIL abnormal Not Available [facility] ([facility]) [address], [place], [address], 12/04/2022 07:04:09 11/24/1911/27/2022 BIOPS Y, ENDOC ERVIC AL results (A1) ENDOC ERVIX GROSS ING INFOR MATIO N: Recei nestor in forma kinjal on a soft ecc brush is a 1.2 cm aggre gate of pink- tinge d mucoi d/fib rinou s mater ial. Speci men is filte red and total ly submi tted. A1 DIAGN OSIS: Low-g rade squam ous intra epith elial lesio n (LSIL ), LYDIA 1. Benig n endoc ervic al tissu e also prese nt. Not Available [facility] ([facility]) [address], [place], [address], 12/04/2022 07:04:09 11/24/19 23 11/23/2022 pregn ramesh test, urine HCG negati ve Not Available [place] [address], [place], [address], 11/23/2022 15:51:47 06/12/19 24 06/12/2023 IMAGE GUIDE D PAP AND HPV REGAR DLESS image guided Pap, HPV regardless of Pap result SEE RESULT S BELOW abnormal CASE REPOR T: Cytol ogy Gynec ologi tessa Repor t Case: [id number] Autho sree g Provi coco: Raudel Cisneros Colle cted: 06/11 1404 MARKETING SYSTEMS ANALYST Order ing Locat ion: [place] Patho logy Recei nestor: 06/12 0135 First Scree n: Gretchen Pino, CT Patho logis t: Jaylon Humphreys MD Speci men: Daniel jolly Pap - Image d, Cervi x STATE MENT OF ADEQU ACY: Satis facto ry for evalu ation Trans forma tion zone compo nent prese nt ----- ----- ----- ----- ----- ----- ----- ----- ----- ----- ----- ----- ----- ----- ----- ----- ----- ---- FINAL DIAGN OSIS: Epith elial Cell Abnor malit y, Squam ous Cell: Atypi tessa Squam ous Cells of Undet ermin ed Arceliai sarita ce (ASC- US). Elmer mendoza d by Jaylon Humphreys MD on 2023 at 3:59 PM ----- ----- ----- ----- ----- ----- ----- ----- ----- ----- ----- ----- ----- ----- ----- ----- ----- ---- HPV RESUL TS: HPV mRNA E6/E7 : No HPV mRNA Detec star NOTE: This high risk HPV mRNA assay detec ts fourt een high- risk HPV types (16, 18, 31, 33, 35, 39, 45, 51, 52, 56, 58, 59, 66, 68) witho ut diffe renti ation . COMME NT: This speci men was revie wed by a Cytot echno logis t and/o r Patho logis t (as indic ated in this repor t) after evalu ation using the Thinp rep Imagi ng Syste m. CLINI TESSA INFOR MATIO N: Menst rual Statu s: LMP (if appli cable ): Clini tessa Histo ry/Pr eviou s Pap: Type of Neopl eva (if appli cable ): Signi fican t Clini tessa Findi ngs: Other Histo ry: Hormo reji (if appli cable ): CARSON CEDILLO FOLLO W-UP: Follo w up as warra nted, based on curre nt guide lines and indiv idual patie nt consi derat ions. Not Available [facility] (Lab) [address], [place], [address], 06/15/2023 17:03:32 06/12/19 24 06/18/2023 BIOPS Y, ENDOC ERVIC AL endocervical curettage histology Negati ve normal Not Available [facility] ([facility]) [address], [place], [address], 06/18/2023 13:45:53 06/12/19 24 06/18/2023 BIOPS Y, ENDOC ERVIC AL results (A1) ENDOC ERVIX GROSS ING INFOR MATIO N: Recei nestor in forma kinjal on a soft ecc brush is a 0.3 cm aggre gate of pink- tinge d mucoi d/fib rinou s mater ial. Speci men is filte red and total ly submi tted. A1 DIAGN OSIS: Benig n ectoc ervic al and endoc ervic al tissu e. No intra epith elial lesio n. UNSP ABNOR MAL CYTOL OG FINDI NGS IN SPECM N FROM CERVI X UTERI (R87. 619) Not Available [facility] ([facility]) [address], [place], [address], 06/18/2023 13:45:53 12/13/19 24 12/13/2023 IMAGE GUIDE D PAP AND HPV REGAR DLESS image guided Pap, HPV regardless of Pap result SEE RESULT S BELOW CASE REPOR T: Cytol ogy Gynec ologi tessa Repor t Case: [id number] Autho rijodi g Provi coco: Dermo dy, Ubaldo , ANP, RN PATIENT SERVICES Colle cted: 12/12 0942 Order ing Locat ion: [place] Patho logy Recei nestor: 12/13 0952 First Scree n: Alex Fitzpatrick, CT Patho logis t: Rich Martinez rd, MD Speci men: Daniel delgadog Pap - Image d, Cervi x STATE MENT OF ADEQU ACY: Satis facto ry for evalu ation Trans forma tion zone compo nent prese nt ----- ----- ----- ----- ----- ----- ----- ----- ----- ----- ----- ----- ----- ----- ----- ----- ----- ---- FINAL DIAGN OSIS: Negat ursula for Intra epith elial Lesio n or Malig nanci (NIL) . Infla mmato ry cell salguero es (incl udes typic al repai r). Elect raissa mendoza d by Rich Martinez rd, MD on 12/20 at 9:49 AM ----- ----- ----- ----- ----- ----- ----- ----- ----- ----- ----- ----- ----- ----- ----- ----- ----- ---- HPV RESUL TS: HPV mRNA E6/E7 : No HPV mRNA Detec star NOTE: This high risk HPV mRNA assay detec ts fourt een high- risk HPV types (16, 18, 31, 33, 35, 39, 45, 51, 52, 56, 58, 59, 66, 68) witho ut diffe renti ation . COMME NT: This speci men was revie wed by a Cytot echno logis t and/o r Patho logis t (as indic ated in this repor t) after evalu ation using the Thinp rep Imagi ng Syste m. CLINI TESSA INFOR MATIO N: Menst rual Statu s: LMP (if appli cable ): Clini tessa Histo ry/Pr eviou s Pap: Type of Neopl eva (if appli cable ): Signi fican t Clini tessa Findi ngs: Other Histo ry: Hormo reji (if appli cable ): PAP EDUCA BRIAN L NOTE: The Pap Test is a scree shanae test with an inher ent false negat ursula rate. Liqui d-bas ed sampl ing may decre ase, but will not elimi carlos, false negat ursula resul ts. A negat ursula resul t does not precl ude the prese nce and/o r devel opmen t of disea se, since the prese nce of abnor mal cells in the sampl e depen ds on the locat ion of the lesio n and sampl ing techn ique. Faina nued regul ar scree shanae is the best metho d of cance r preve ntion . If repor star cytol ogic findi ng do not corre late with physi tessa and/o r histo rical findi ngs, fur er inves tigat ion is recom isabella d, as clini juni bingham nted. Not Available [facility] (Lab) [address], [place], [address], 12/21/2023 10:55:04 12/13/19 24 12/13/2023 TRICH OMONA S VAGIN MILAGROS (RRNA ) trichomonas vaginalis ribosomal RNA (rrna) Negati ve negati ve Not Available [facility] (Lab) [address], [place], [address], 12/21/2023 10:55:04 12/13/19 24 12/13/2023 CT/GC ([place]) , THINP REP VIAL chlamydia trachomatis, PCR Negati ve negati ve Not Available [facility] (Lab) [address], [place], [address], 12/21/2023 10:55:05 12/13/19 24 12/13/2023 CT/GC ([place]) , THINP REP VIAL neisseria gonorrhoeae, PCR Negati ve negati ve Not Available [facility] (Lab) [address], [place], [address], 12/21/2023 10:55:05 12/22/19 23 12/21/2022 MAMMO , scree shanae, digit al, bilat eral No observ ation record ed. [facility] [address], [place], [address], 06/19/2023 12:16:54 02/01/20 24 02/01/2024 imagi ng/di agnos tic resul t No observ ation record ed. [facility] [address], [place], [address], 02/05/2024 12:42:32 Result Notes None recorded. Problems Name Problem SNOMED Code Status Onset Date Resolution Date Notes Provider Name and Address Organization Details Recorded Time Elevated blood-pr essure reading without diagnosi s of hyperten magen 122074230 Completed 201509/06/2020 Elevated blood-pr essure reading, without diagnosi s of hyperten magen;Rec orded Elsewher e: No Locat ion: Conrad cerna [facility] S ource: EHR Insulation Packer neelima: N Practi ce ID: 0001 Jonny lable Time: 04:45:00 PM Eneida Antunez [facility] 1 17:06:23 Venereal disease screenin g Completed 201409/06/2020 Screenin g examinat ion for venereal disease; Recorded Elsewher e: No Locat ion: Siomara nehemiah [facility] S ource: EHR Insulation Packer neelima: N Practi ce ID: 0001 Jonny lable Time: 08:30:00 AM Eneida Antunez [facility] 17:07:20 Pregnanc y test positive [id number] Completed 201109/06/2020 Pregnanc y examinat ion or test, positive result;R ecorded Elsewher e: No Locat ion: [facility] S ource: EHR Insulation Packer neelima: N Practi ce ID: 0001 Jonny lable Time: 11:00:00 AM Eneida Antunez [facility] 17:06:[address] Concept Completed 201509/06/2020 Encntr for director regulatory affairs exam (general ) (routine ) w/o abn findings ;Recorde d Elsewher e: No Locat ion: [facility] S ource: EHR Insulation Packer neelima: N Practi ce ID: 0001 Jonny lable Time: 04:45:00 PM Eneida Antunez [facility] 1 17:07:10 Steriliz ation procedur e Completed 201609/06/2020 Encounte r for steriliz ation;Re corded Elsewher e: No Locat ion: [facility] S ource: EHR Insulation Packer neelima: N Practi ce ID: 0001 Jonny lable Time: 09:00:00 AM Eneida Antunez [facility] 1 17:07:15 Atypical squamous cells of undeterm ined signific ance on cervical Papanico laou smear [id number] Completed 201809/06/2020 Atyp squam cell of undet signfc cyto smr crvx (ASC-US) ;Recorde d Elsewher e: No [facility] Insulation Packer neelima: N Practi ce ID: 0001 Jonny lable Time: 08:15:00 AM Eneida Antunez [facility] 17:06:19 Placenta previa with hemorrha ge - not delivere d [id number] Completed 201109/06/2020 Hemorrha ge from placenta previa, antepart um;Recor ded Elsewher e: No Locat ion: [facility] S ource: EHR Insulation Packer neelima: N Practi ce ID: 0001 Jonny lable Time: 08:15:00 AM Eneida Antunez [facility] 17:06:50 Pregnanc y test negative [id number] Completed 201409/06/2020 Encounte r for pregnanc y test, result negative ;Recorde d Elsewher e: No Locat ion: [facility] S ource: EHR Insulation Packer neelima: N Madelinti ce ID: 0001 Jonny lable Time: 08:30:00 AM Eneida Antunez [facility] 17:06:53 Malaise and fatigue [id number] Completed 201409/06/2020 Fatigue / Malaise; Recorded Elsewher e: No Locat ion: [facility] S ource: EHR Insulation Packer neelima: N Practi ce ID: 0001 Jonny lable Time: 08:30:00 AM Eneida Antunez [facility] 17:06:44 Screenin g for malignan t neoplasm of cervix Completed 201109/06/2020 Screenin g for malignan t neoplasm s of the cervix;R ecorded Elsewher e: No [facility] E[facility] Insulation Packer neelima: N Practi ce ID: 0001 Jonny lable Time: 11:00:00 AM Eneida Antunez [facility] 17:07:02 Pelvic and perineal pain [id number] Completed 201809/06/2020 Pelvic and perineal pain;Rec orded Elsewher e: No Locat ion: [facility] Practi ce ID: 0001 Jonny lable Time: 09:45:00 AM Eneida Antunez [facility] 17:06:48 Body mass index 30+ - obesity [id number] Completed 201506/29/2020 Body mass index (BMI) 31.0-31. 9, adult;Re corded Elsewher e: No Locat ion: [facility] S ource: [facility] neelima: N Madelinti ce ID: 0001 Jonny lable Time: 04:45:00 PM Eli Alford [facility] 10:02:38 Family planning surveill ance Completed 201209/06/2020 Contrace ptive surveill ance, unspecif ied;Thony rded Elsewher e: No Locat ion: [facility] S ource: EHR Insulation Packer neelima: N Madelinti ce ID: 0001 Jonny lable Time: 11:00:00 AM Eneida Antunez [facility] 17:06:[address] Concept Completed 201609/06/2020 Encntr for general adult medical exam w/o abnormal findings ;Recorde d Elsewher e: No Locat ion: [facility] S ource: EHR Insulation Packer neelima: N Practi ce ID: 0001 Jonny lable Time: 09:30:00 AM Eneida Antunez [facility] 1 17:07:07 Removal of intraute rine device Completed 201609/06/2020 Encounte r for removal of intraute rine contrace ptive device;R ecorded Elsewher e: No Locat ion: [facility] S ource: EHR Insulation Packer neelima: N Madelinti ce ID: 0001 Jonny lable Time: 08:45:[address] [facility] 17:06:58 Hyperten sive disorder [id number] Completed 201709/06/2020 HTN;Thony rded Elsewher e: No Locat ion: [facility] S ource: EHR Insulation Packer neelima: N Madelinti ce ID: 0001 Jonny lable Time: 08:30:[address] [facility] 17:06:32 Low grade squamous intraepi thelial lesion on cervical Papanico laou smear [id number] 105 Completed 201809/06/2020 Low grade intrepit h lesion cyto smr crvx (LGSIL); Recorded Elsewher e: No Locat ion: [facility] S ource: EHR Insulation Packer neelima: N Madelinti ce ID: 0001 Jonny lable Time: 08:15:[address] [facility] 17:06:39 Adult health examinat ion Completed 201106/29/2020 Routine Medical Exam;Rec orded Elsewher e: No Locat ion: [facility] S ource: EHR Insulation Packer neelima: N Madelinti ce ID: 0001 Jonny lable Time: 02:45:00 PM Eli Alford [facility] 10:02:31 Contrace ptive sheath status [id number] Completed 201706/29/2020 Encounte r for initial prescrip tion of other contrace ptives;R ecorded Elsewher e: No Locat ion: [facility] S ource: EHR Insulation Packer neelima: N Madelinti ce ID: 0001 Jonny lable Time: 01:00:00 PM Eli hyman [facility] 1 10:02:43 Speciali rachelbib medical examinat ion Completed 201409/06/2020 Other specifie d chlamydi al diseases ;Recorde d Elsewher e: No Locat ion: [facility] S ource: EHR Insulation Packer neelima: N Madelinti ce ID: 0001 Jonny lable Time: 08:30:00 AM Eneida Antunez [facility] 17:07:13 Abdomina l bloating [id number] Completed 201806/29/2020 Bloating ;Recorde d Elsewher e: No Locat ion: [facility] S ource: EHR Insulation Packer neelima: N Madelinti ce ID: 0001 Jonny lable Time: 01:30:00 PM Eli hyman [facility] 1 10:02:29 Clinical finding Completed 201906/29/2020 Abnormal findings on dx imaging of [facility] body structur es;Recor ded Elsewher e: No Locat ion: [facility] S ource: EHR Insulation Packer neelima: N Madelinti ce ID: 0001 Jonny lable Time: 08:15:00 AM Eli Alford [facility] 10:02:41 Obesity [id number] Completed 201409/06/2020 Obesity; Recorded Elsewher e: No Locat ion: [facility] S ource: EHR Insulation Packer neelima: N Practi ce ID: 0001 Jonny lable Time: 08:30:00 AM Eneida Antunez [facility] 17:06:47 Evaluati on finding Completed 201806/29/2020 Unsp abnormal cytolog findings in specmn from cervix uteri;Re corded Elsewher e: No Locat ion: [facility] S ource: EHR Insulation Packer neelima: N Practi ce ID: 0001 Jonny lable Time: 01:30:00 PM Eli hyman [facility] 10:02:57 Lymphade nopathy [id number] Completed 201109/06/2020 Enlargem ent of lymph nodes;Re corded Elsewher e: No Locat ion: [facility] S ource: EHR Insulation Packer neelima: N Practi ce ID: 0001 Jonny lable Time: 11:00:00 AM Eneida Antunez [facility] 17:06:42 Educatio n Completed 201606/29/2020 Encounte r for oth general cnsl and advice on contrace ption;Pr actice ID: 0001 Eli hyman [facility] 10:02:[address] Concept Completed 201709/06/2020 Encntr for director regulatory affairs exam (general ) (routine ) w abnormal findings ;Practic e ID: 0001 Eneida Antunez [facility] 17:07:09 Lesion of ovary Completed 201806/29/2020 Other ovarian cyst, left side;Pra ctice ID: 0001 [facility]:02:50 Mild hypereme sis-not delivere d [id number] Completed 201109/06/2020 Mild hypereme sis gravidar um, antepart um;Recor ded Elsewher e: No Locat ion: [facility] S ource: EHR Insulation Packer neelima: N Practi ce ID: 0001 Jonny lable Time: 03:00:00 PM Eneida Antunez [facility] 17:06:45 Speciali zed medical examinat ion Completed 201209/06/2020 Gynecolo gical Examinat ion;Thony rded Elsewher e: No Locat ion: [facility] S ource: EHR Insulation Packer neelima: N Practi ce ID: 0001 Jonny lable Time: 08:30:00 AM Eneida Antunez [facility] 1 17:07:12 Lesion of ovary Completed 201806/29/2020 Other ovarian cyst, unspecif ied side;Rec orded Elsewher e: No Locat ion: [facility] S ource: EHR Insulation Packer neelima: N Practi ce ID: 0001 Jonny lable Time: 04:11:41 PM Eli Alford [facility] 1 10:02:52 Infectio n screenin g Completed 201409/06/2020 Encounte r for screenin g for oth infec/pa rastc diseases ;Recorde d Elsewher e: No Locat ion: [facility] S ource: EHR Insulation Packer neelima: N Madelinti ce ID: 0001 Jonny lable Time: 08:30:00 AM Eneida Antunez [facility] 1 17:06:34 Routine antenata l care Completed 201109/06/2020 Supervis ion of other normal pregnanc y;Record ed Elsewher e: No Locat ion: [facility] S ource: EHR Insulation Packer neelima: N Practi ce ID: 0001 Jonny lable Time: 11:00:00 AM Eneida Antunez [facility] 1 17:07:00 Syphilis test finding [id number] Completed 201409/06/2020 Encntr screen for infectio ns w sexl mode of transmis s;Record ed Elsewher e: No Locat ion: [facility] S ource: EHR Insulation Packer neelima: N Practi ce ID: 0001 Jonny lable Time: 08:30:00 AM Eneida Antunez [facility] 1 17:07:16 Insertio n of intraute rine contrace ptive device Completed 201209/06/2020 INSERTIO N OF IUD;Thony rded Elsewher e: No Locat ion: Conrad cerna [facility] S ource: EHR Insulation Packer neelima: N Alejandra ce ID: 0001 Jonny lable Time: 01:15:00 PM Eneida Antunez [facility] 1 17:06:35 Primigra acrter [id number] Completed 201109/06/2020 Supervis ion of normal first pregnanc y;Record ed Elsewher e: No Locat ion: [facility] S ource: EHR Insulation Packer neelima: N Alejandra ce ID: 0001 Jonny lable Time: 02:30:00 PM Eneida Antunez [facility], [facility] 17:06:56 Postpart um care Completed 201109/06/2020 Routine postpart um follow-u p;Record ed Elsewher e: No Locat ion: [facility] S ource: EHR Insulation Packer neelima: Patel Roberts ce ID: 0001 Jonny lable Time: 09:15:00 AM Eneida Antunez [facility] 1 17:06:51 Irregula r intermen strual bleeding [id number] Completed 201209/06/2020 Metrorrh agia;Rec orded Elsewher e: No Locat ion: [facility] S ource: EHR Insulation Packer neelima: Patel Roberts ce ID: 0001 Jonny lable Time: 11:00:00 AM Eneida Antunez [facility] 17:06:37 Human papillom avirus deoxyrib onucleic acid detected , high risk on cervical specimen [id number] Completed 201809/06/2020 Cervical high risk HPV DNA test positive ;Recorde d Elsewher e: No Locat ion: [facility] S ource: EHR Insulation Packer neelima: Patel Yusufti ce ID: 0001 Jonny lable Time: 04:11:41 PM Eneida Antunez [facility] 1 17:06:28 Hypereme sis gravidar um with metaboli c disturba nce - not delivere d [id number] Completed 201109/06/2020 Hypereme sis gravidar um with metaboli c disturba nce, antepart um;Recor ded Elsewher e: No Locat ion: [facility] S ource: EHR Insulation Packer neelima: N Madelinti ce ID: 0001 Jonny lable Time: 02:45:00 PM Eneida Antunez [facility] 17:06:30 Amenorrh ea [id number] Completed 201106/29/2020 Absence of menstrua tion;Rec orded Elsewher e: No Locat ion: [facility] S ource: EHR Insulation Packer neelima: N Alejandra ce ID: 0001 Jonny lable Time: 11:00:00 AM Eli Alford [facility] [facility], [facility] 10:02:33 Central nervous system malforma tion in fetus affectin g obstetri tessa care [id number] Completed 201109/06/2020 Central nervous system malforma tion in fetus, antepart um;Recor ded Elsewher e: No Locat ion: [facility] S ource: EHR Insulation Packer neelima: N Alejandra ce ID: 0001 Jonny lable Time: 02:00:00 PM Eneida Antunez [facility] 17:06:20 anatomy study Completed 201109/06/2020 [facility] ANATMC SURVEY;Yancy walton ID: 0001 Eneida Antunez [facility] 17:06:27 Complica tion related to pregnanc y Completed 201109/06/2020 Unspecif ied antepart um complica tion;Pra ctice ID: 0001 Eneida Antunez [facility], [facility] 17:06:22 Twin pregnanc y with antenata l problem [id number] Completed 201109/06/2020 Twin pregnanc y, antepart um conditio n or complica tion;Pra ctice ID: 0001 Eneida Antunez null, [facility] 17:07:19 Delivery normal [id number] Completed 201106/29/2020 Normal delivery ;Practic e ID: 0001 Eli Alford null, [facility] 10:02:47 Single live [id number] Completed 201109/06/2020 Mother with single liveborn ;Practic e ID: 0001 Eneida Antunez null, [facility] 17:07:06 Screenin g for malignan t neoplasm of rectum Completed 201409/06/2020 Screenin g for malignan t neoplasm s of the rectum;P ractice ID: 0001 Eneida Antunez null, [facility] 17:07:04 Problem Notes None recorded. Procedures Surgical History Date Name Laterality Status Provider Name and Address Organization Details Recorded Time 06/12/19 24 Date of Last Pap Smear completed Lizzette Mei [facility] 11/26/2023 12:36:21 12/22/19 23 Date of Last Mammogram completed Adina Powell [facility] 06/12/2023 09:49:35 11/24/19 23 Colposcopy completed FAUSTO Tomlin- [address], [place], [address], [facility] 11/23/2022 16:58:09 11/24/19 23 Colposcopy completed Adina Powell [facility] 11/23/2022 15:51:19 10/14/19 20 IUD Insertion completed Gabo Sousa MD [address], [place], [address], [facility] 10/14/2019 17:47:10 02/05/18 97 LEEP completed Eli Alford [facility] 06/28/2020 14:27:13 02/05/18 84 plastic repair procedure completed Mary Jane Vargas [facility] 12/13/2021 10:06:01 [facility] 15:10:46 Tonsillectomy completed [facility] 08/29/2019 15:11:04 Imaging Results Imaging Date Name Status LastModified by Organiz ation Details LastModified Time 12/21/2022 MAMMO, screening, digital, bilateral completed [facility] [address], [place], [address], 06/19/2023 12:16:54 02/01/2024 imaging/diagno stic result completed [facility] [address], [place], [address], 02/05/2024 12:42:32 Procedure Notes None recorded. Medical Equipment None Reported. Allergies Allergen ID Allergen Name Allergen Category Reaction Reaction Severity Criticality Documentation Date Start Date Code Code System Note Provider Name and Address Organization Details Recorded Time 1444 Substance with sulfonami de structure and antibacte rial mechanism of action (substanc e) medicatio n Not available Not available Not available 08/29/2019 44341 8003 [facility] 0 15:09:06 Medications Name Sig Start Date Stop Date Status Note LastModified by Organization Details LastModified Time amoxicill in 500 mg capsule take 1 capsule (500MG) by oral route every 8 hours for 10 days 11/24 completed Prescrib ed Elsewher e: No [facility] odify By: tgingric h Vincent ter DateTime : 11/16/19 12 08:30:00 AM Not Available Not Available Not Available Mirena 21 mcg/24 hr (up to 8 years) 52 mg intrauter ine device 01/22 completed Prescrib ed Elsewher e: Yes Loca tion: [facility] odify By: gabo craftunter DateTime : 08/29/19 17 09:00:00 AM Not Available Not Available Not Available clindamyc in 1 %-benzoyl peroxide 5 % topical gel 09/07 completed Not Available Not Available Not Available Reglan 10 mg tablet take 1 tablet (10MG) by oral route 4 times every day 30 minutes before meals and at bedtime 02/13 completed Prescrib ed Elsewher e: No Locat ion: [facility] odify By: odilia felipe DateTime : 04/07/19 12 02:45:00 PM Not Available Not Available Not Available Multi-Vit silver HP/Minera ls capsule 03/31 completed Prescrib ed Elsewher e: Yes Loca tion: [facility] odify By: david Encounte r DateTime : 02/07/19 19 08:15:00 AM Not Available Not Available Not Available Metrogel Vaginal 0.75 % (37.5 mg/5 gram) insert 1 applicat orful by vaginal route every day at bedtime 07/27 completed Prescrib ed Elsewher e: No Locat ion: [facility] odify By: david Encounte r DateTime : 01/06/20 15 08:30:00 AM Not Available Not Available Not Available Vitamin D2 1,250 mcg (50,000 unit) capsule take 1 capsule by oral route every week for 8 weeks. 08/09 completed Prescrib ed Elsewher e: No Locat ion: [facility] odify By: mariza craftuntjohn DateTime : 01/08/20 15 01:13:07 PM Not Available Not Available Not Available ParaGard T 380A 380 square mm intrauter ine device Take by intraute rine route. active Not Available Not Available No t Available spironola ctone 50 mg tablet take 1 tablet (50MG) by oral route every day 07/21 completed Prescrib ed Elsewher e: No Locat ion: [facility] odify By: nicolle Gallardo r DateTime : 06/13/19 13 08:30:00 AM Not Available Not Available Not Available amoxicill in 875 mg-potass ium clavulana te 125 mg tablet TAKE 1 TABLET BY MOUTH TWICE DAILY 12/12 completed Not Available Not Available Not Available Vitamin C 500 mg capsule,e xtended release 07/21 completed Prescrib ed Elsewher e: Yes Loca tion: [facility] odify By: nicolle Gallardo r DateTime : 02/13/19 13 01:15:00 PM Not Available Not Available Not Available Vitamins and Minerals tablet 01/05 completed Prescrib ed Elsewher e: Yes Loca tion: [facility] odify By: dima Kaur ter DateTime : 02/13/19 13 01:15:00 PM Not Available Not Available Not Available Alta 0.35 mg tablet take 1 tablet by oral route every day 02/07 completed Prescrib ed Elsewher e: No Locat ion: [facility] odify By: giovanni craftunter DateTime : 06/06/19 18 01:00:00 PM Not Available Not Available Not Available multivita min 11/02 completed Not Available Not Available Not Available B-12 Plus 5,000 mcg-100 mcg sublingua l tablet 07/21 completed Prescrib ed Elsewher e: Yes Loca tion: [facility] odify By: nicolle Gallardo r DateTime : 02/13/19 13 01:15:00 PM Not Available Not Available Not Available Probiotic 10 billion cell capsule 03/31 completed Prescrib ed Elsewher e: Yes Loca tion: [facility] odify By: david christensen DateTime : 02/07/19 19 08:15:00 AM Not Available Not Available Not Available Triveen-D uo DHA 29 mg-1 mg-400 mg oral pack take 2 by Oral route every day for 30 days 04/28 completed Prescrib ed Elsewher e: No Locat ion: [facility] odify By: azul ortiz DateTime : 03/31/19 12 11:00:00 AM Not Available Not Available Not Available Fish Oil 100 mg-160 mg-1,000 mg capsule 07/21 completed Prescrib rafat Rayo e: Yes Loca tion: [facility] odify By: nicolle christensen DateTime : 02/13/19 13 01:15:00 PM Not Available Not Available Not Available Flucelvax Quad [id number] (PF) 60 mcg (15 mcg x 4)/0.5 mL IM syringe 09/06 completed Not Available Not Available Not Available Afluria Qd (36 mos up)(PF)60 mcg (15 mcg x4)/0.5 mL IM syringe ADM 0.5ML IM UTD 09/06 completed Not Available Not Available Not Available Vitals Date Recorded Body height Body mass index (BMI) Body weight Provider Name and Address Organization Details Last Updated DateTime 11/02/2022 160.66 cm 30.9 kg/m2 01240.26 g Adina Powell [facility] 11/02/2022 09:44:10 Date Recorded Systolic blood pressure Diastolic blood pressure Provider Name and Address Organization Details Last Updated DateTime 11/02/2022 126 mm[Hg] 82 mm[Hg] Светлана Gasca [facility] [address], [place], [address], [facility] 11/02/2022 09:58:47 Date Recorded Body height Body mass index (BMI) Body weight Systolic blood pressure Diastolic blood pressure Provider Name and Address Organization Details Last Updated DateTime 11/23/2022 160.66 cm 30.9 kg/m2 09460.26 g 160 mm[Hg] 104 mm[Hg] Adina Powell [facility] 15:50:36 Date Recorded Systolic blood pressure Diastolic blood pressure Provider Name and Address Organization Details Last Updated DateTime 11/23/2022 122 mm[Hg] 78 mm[Hg] Светлана Gasca [facility] [address], [place], [address], [facility] 11/23/2022 16:57:05 Date Recorded Body height Body mass index (BMI) Body weight Systolic blood pressure Diastolic blood pressure Provider Name and Address Organization Details Last Updated DateTime 06/12/2023 160.66 cm 27.4 kg/m2 54326.41 g 153 mm[Hg] 97 mm[Hg] Adina Powell [facility] 4 09:47:06 Date Recorded Body height Body mass index (BMI) Body weight Systolic blood pressure Diastolic blood pressure Provider Name and Address Organization Details Last Updated DateTime 12/13/2023 160.66 cm 31.3 kg/m2 21509.44 g 163 mm[Hg] 106 mm[Hg] Lizzette Mei [facility] 09:27:38 Social History Question Answer Notes LastModified by Organizat ion Details LastModified Time Tobacco Smoking Status Never [facility]2020 17:05:21 Do You Have An Advance Directive? No Information n ot available 06/29/2020 What Is Your Level Of Alcohol Consumption? Occasional [id number] Information not available 12/09/2019 How Many Years [...] Or The Highest Degree You Have Received? 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 [id number] Information not available 09/06/2020 Do You Use Any Illicit Or Recreational Drugs? No Information not available 06/29/2020 Do You Use Sunscreen Routinely? Yes Information not available 06/29/2020 Have You Used IV Drugs? No Information not available 06/29/2020 Sex: Unknown Functional Status Question Answer Note LastModified by Organizat ion Details LastModified Time Do you have difficulty walking or climbing stairs? No [email or web address] Information not available 12/13/2021 Are you able to walk? [email or web address] Information not available 06/29/2020 Are you able to care for yourself? Yes [email or web address] Information not available 12/13/2021 Do you have difficulty dressing or bathing? No [email or web address] Information not available 12/13/2021 What is your exercise level? Moderate Information not available 09/06/2020 Mental Status None recorded. Family History Relationship Description Onset Age of this Age Resolved Age Notes LastModified by Organization Details LastModified Time Maternal Grandmother Aneurysm [email or web address] Not available 06/29 09:24:53 Father Hypertensive disorder [email or web address] Not available 2019 15:08:14 Father Malignant tumor of lung [email or web address] Not available 2023 09:29:01 Mother Cyst of ovary [email or web address] Not available 2020 09:24:53 Paternal Grandmother Congenital heart disease [email or web address] Not available 2020 09:24:53 Paternal Grandmother Diabetes mellitus [email or web address] Not available 2019 15:08:50 Medical History Condition Response Allergies (Food, seasonal, environmental ) N Other N Blood Transfusion N Drug/Latex Allergies/Reactions Y Breast Cancer N Dermatologic Disorders N Lung Disease N [...] Diagnosis/Indication Diagnosis SNOMED-CT Code Diagnosis ICD10 Code 28435 Светлана Gasca [facility] [address],[place] [address] 09/05/2019 15:17:10 09/05/2019 16:39:33 Gynecologic examination 18744063 Z01.419 Contracept ion care management 147158083 Z30.9 [id number] [facility] [address],[place] [address] 09/29/2019 09:12:02 09/29/2019 10:22:14 Indistinct lesion 345759604 R93.89 [id number] Gabo Sousa MD [place] [address],[place] [address] 09/29/2019 09:13:06 09/29/2019 10:28:07 Mass of ovary 823106407 R19.09 Palpitations 85673584 R0 0.2 Contracept ion care management 936952219 Z30.9 [id number] Gabo Sousa MD [place] [address],[place] [address] 10/14/2019 16:56:00 10/14/2019 18:22:03 Contraception care management 276262412 Z30.9 [id number] Gabo Sousa MD [place] [address],[place] [address] 11/10/2019 09:40:45 11/10/2019 10:22:26 Contraception care management 027341145 Z30.9 88409 [facility] [address],[place] [address] 12/29/2019 09:32:32 12/29/2019 10:08:20 Abnormal radiologic density 26009368 R93.89 [id number] Gabo Sousa MD [place] [address],[place] [address] 12/29/2019 09:33:26 12/29/2019 12:09:39 Mass of ovary 145465945 R19.09 29561 Edilma Duenas [place] [address],[place] [address] 06/29/2020 09:24:02 06/29/2020 10:13:03 Abnormal radiologic density 89888187 R93.89 [id number] Gabo Sousa MD [place] [address],[place] [address] 06/29/2020 09:24:39 06/29/2020 10:27:34 Mass of ovary 508946114 R19.09 [id number] Светлана Gasca [facility] [address],[place] [address] 09/07/2020 09:52:30 09/09/2020 10:42:31 Gynecologic examination 91751432 Z01.419 [id number] Gabo Sousa MD [place] [address],[place] [address] 12/17/2020 13:49:11 12/18/2020 10:39:13 Mass of ovary 381723591 R19.09 [id number] [facility] [address],[place] [address] 12/17/2020 13:44:31 12/17/2020 14:55:02 Cyst of ovary 05785950 N83.209 [id number] Светлана Gasca [facility] [address],[place] [address] 10/31/2021 09:30:18 10/31/2021 10:08:54 Gynecologic examination 41858513 Z01.419 Z11.51 Z11.3 Z11.8 Postcoital bleeding 4888 0000 N93.0 [id number] Fifi Carter [place] [address],[place] [address] 12/13/2021 09:24:57 12/13/2021 13:43:42 Postcoital bleeding 35660048 N93.0 Abnormal u terine bleeding 1172727626 9100 N93.9 [id number] Gabo Sousa MD [place] [address],[place] [address] 12/13/2021 09:25:29 12/13/2021 11:40:13 Postcoital bleeding 74105545 N93.0 [id number] [facility] [address],[place] [address] 03/16/2022 09:33:42 03/16/2022 10:08:30 Cyst of left ovary 0446945297 6170262 N83.292 T83.39XA [id number] Gabo Sousa MD [place] [address],[place] [address] 03/16/2022 10:06:12 03/16/2022 11:07:09 Hemorrhagic cyst of ovary 363761771 N83.209 [id number] Gabo Sousa MD [place] [address],[place] [address] 05/25/2022 09:38:00 05/25/2022 15:16:38 Postoperative care 301352077 Z48.89 [id number] [facility] [address],[place] [address] 05/25/2022 09:38:11 05/25/2022 10:06:05 Cyst of left ovary 2214431300 4965048 N83.292 [id number] Светлана Gasca [facility] [address],[place] [address] 11/02/2022 09:34:25 11/02/2022 10:13:22 Gynecologic examination 65807198 Z11.51 Z11.8 Z11.3 Screening mammography 24 497847 Z12.31 [id number] Светлана Gasca [facility] [address],[place] [address] 11/23/2022 15:34:13 11/23/2022 17:07:56 Screening procedure 60500373 Z13.9 Atypical s quamous cells of undetermined significance on cervical Papanicolaou smear 141656025 R87.610 [id number] Светлана Gasca [facility] [address],[place] [address] 11/29/2022 16:54:57 12/01/2022 03:59:26 Low grade squamous intraepithelial lesion on cervical Papanicolaou smear 8152932566 9105 R87.612 [id number] [facility] [address] [address] 06/12/2023 09:20:25 06/12/2023 12:45:58 Human papillomavirus deoxyribonucleic acid detected, high risk on cervical specimen 241787796 R87.810 [id number] UBALDO DURON NP [place] [address] [address] 12/13/2023 09:19:46 12/13/2023 10:13:59 Gynecologic examination 34047296 Z01.419 Screening mammography 24 406567 Z12.31 Contracept ion care management 482094405 Z30.9 Venereal d isease screening 536424395 Z11.3 Elevated blood-pressure reading without diagnosis of hypertension 886247272 R03.0 Health Concerns Section Related Observation LastModified by Organization Detai ls LastModified Time None Recorded Concern Status LastModified by Organization Details LastModified Time None Recorded Advance Directives Directive N: Payers Encounter Date Sequence Insurance Name Policy Number Policy Adams Covered Member ID Adams Member ID Guarantor Name 11/02/2022 1 [place] [id number] Trish M Guess [id number] Trish M Guess 11/02/2022 2 UMR [id number] Felix M Guess [id number] Trish M Guess 11/23/2022 1 [place] [id number] Trish M Guess [id number] Trish M Guess 11/23/2022 2 UMR [id number] Felix M Guess [id number] Trish M Guess 11/29/2022 1 [place] [id number] Trish M Guess [id number] Trish M Guess 11/29/2022 2 UMR [id number] Felix M Guess [id number] Trish M Guess 06/12/2023 1 [place] [id number] Trish M Guess [id number] Trish M Guess 06/12/2023 2 UMR [id number] Felix M Guess [id number] Trish [place] Guess 12/13/2023 1 [facility]: (PPO) [id number] Trish Greenfield Guess [id number] Trish [place] Guess 12/13/2023 2 R [id number] Felix Nieto [id number] Trish [place]field Guess Notes Date Note Type Note Provider Name and Address Organization Details Recorded Time 11/02/2022 text/html Annual GYNReport ed bypatient.History: no gynecologic complaints Menstrual cycle:Normal menses Urinary symptoms:No hematuria; No incontinence Vulva:No genital lesion Vagina:Normal vaginal discharge Breast:No breast pain; No breast lump; No nipple discharge Current Contraception:Sati sfied with current contraception; Intrauterine device (iud) Sexual complaints:No sexual complaints; No pain during intercourse; Normal libido Menopausal Symptoms:No menopausal symptoms; Normal vaginal lubrication Psychological symptoms:No depression; No anxiety; No PMDD Preventive measures:Encourage self breast examination; Encourage regular exercise; Encourage no tobacco use; Encourage regular mammograms starting age 40; Followed with yearly pap smears; Needs to schedule mammogram Светлана Gasca [facility] [address], [place], [address], [facility] 11/02/2022 10:01:02 11/23/2022 text/html Here today for colposcopy for Pap ASCUS with neg HPV x . Светлана Gasca [facility] [address], [place], [address], [facility] 11/23/2022 17:05:38 11/29/2022 text/html Follow up for discussion of colposcopy results & next steps in POC Светлана Gasca [facility] [address], [place], [address], [facility] 11/30/2022 12:35:37 06/12/2023 text/html Here today for q6mos pap/hpv/ecc. Светлана Gasca [facility] [address], [place], [address], [facility] 06/12/2023 12:03:33 12/13/2023 text/html Annual GYNReport ed bypatient.History: no [...] Patient denies concerns today. UBALDO DURON NP [address], [place], [address], [facility] 12/13/2023 10:12:57 OBGyn Episode Ob Episode Information Episode Created Date Number of Fetuses Patient Bloodtype Patient rh Status Prepregnancy Weight lbs Domestic Partner Domestic Partner Phone Father Name Recording Clerk Status 09/05/19 20 1 CLOSED Fetus Data First Name Last Name Admitted to NICU Weight (g) Sex Living Outcome Pediatric Complications Fetus ID Race Codes Race Delivery Type 3367 Vaginal Delivery Kobe Calculation KOBE Calculation Method Initial Kobe Date Initial Exam Date Initial Exam Provider Initial Ultrasound Date Last Menstrual Period Date Ultra Sound Weeks Gestation Conception by IVF Embryo Age at Transfer Date of Transfer 0 Eighteen To Twenty Week Kobe Update Ultra Sound Date Fundal Height At Umbil Quickening Date Ultra Sound Latest Weeks Gestation Final Kobe Confirmed By Final Kobe Confirmed Date Final Kobe Date Ultra Sound Latest Days Gestation 0 0 Menstrual History Last Menstrual Date Menses Monthly On Bcp Conception Prior Menses Frequency Hcg Plus Date Menarche Onset Age Delivery Information Delivery Date Delivery Type Labor Anesthesia Weeks Gestation Incision Type Labor Labor Length Hrs Delivered By Post Complications Tubal Sterilization Discharge Date Comments 7 Discharge Information Feeding Method Contraceptive Method Maternal HG B and HCT Levels Ob Episode Information Episode Created Date Number of Fetuses Patient Bloodtype Patient rh Status Prepregnancy Weight lbs Domestic Partner Domestic Partner Phone Father Name Recording Clerk Status 09/05/19 20 1 CLOSED Fetus Data First Name Last Name Admitted to NICU Weight (g) Sex Living Outcome Pediatric Complications Fetus ID Race Codes Race Delivery Type 3366 Vaginal Delivery Kobe Calculation KOBE Calculation Method Initial Kobe Date Initial Exam Date Initial Exam Provider Initial Ultrasound Date Last Menstrual Period Date Ultra Sound Weeks Gestation Conception by IVF Embryo Age at Transfer Date of Transfer 0 Eighteen To Twenty Week Kobe Update Ultra Sound Date Fundal Height At Umbil Quickening Date Ultra Sound Latest Weeks Gestation Final Kobe Confirmed By Final Kobe Confirmed Date Final Kobe Date Ultra Sound Latest Days Gestation 0 0 Menstrual History Last Menstrual Date Menses Monthly On Bcp Conception Prior Menses Frequency Hcg Plus Date Menarche Onset Age Delivery Information Delivery Date Delivery Type Labor Anesthesia Weeks Gestation Incision Type Labor Labor Length Hrs Delivered By Post Complications Tubal Sterilization Discharge Date Comments 2 Discharge Information Feeding Method Contraceptive Method Maternal HG B and HCT Levels
== END 2024-02-01 09:01 | disposition home or self-care (01) ==
PROVIDERS: PCP Internal Medicine; Visit Provider Obstetrics & Gynecology
DX: Z12.31 Encounter for screening mammogram for malignant neoplasm of breast (principal)
CPT/HCPCS: 77063; 77067

== ENCOUNTER 2024-07-15 08:32 | Outpatient (CLI) | payer BC, OTHER, SELFPAY ==
--- OUTSIDE RECORDS SUMMARY | 2024-07-15 08:45 | XMS_ITS | Continuity of Care Document ---
Author Organization [facility] Address [address] [place] [address] Phone Care Team Providers Care Ux Lead Name Role Phone Ornelas OD, Satya Unavailable Unavailable Advance Directives Directive Yes / No Effective Date File Name No Information Encounters Encounter Description Practice Location Reason(s) For Visit Diagnoses Date Provider Providers Copied on Encounter [facility], [address], [place], [place], [id number], [place] tel:[phone] [facility] No Information 2-[address] 6 Ornelas OD Satya. [address] , [address], [place], [address], [place]. tel:[phone] Family History Family Member Type Diagnosis Age At Onset No Information Payers Payer name Insurance type Covered green party ID Michael subramanian(s) [facility] CI [id number] Social History Type Description Quantity Date Captured Comments Sex Female Smoking Status No Information Chief Complaint And Reason For Visit No Information Reason For Referral Reason For Referral No Information History Of Present Illness Encounter Date Complaint History Of Prese nt Illness No Information Functional Status Date Functional Assessmen t No Information Instructions Date Instruction Additional Infor mation No Information Assessments Type Assessment Date No Information Patient Care Teams Name Effective Dates (start - stop) Status Members No Information
--- OUTSIDE RECORDS SUMMARY | 2024-07-15 08:45 | XMS_ITS | Data Portability ---
Author Organization [facility] [place] Address [address] [place] [address] [place] [address] Care Team Providers Care Locomotive Inspector Name Role Phone DEEDEETRISTAN STRAUSS Primary Care Provider Assessment Encounter Date Assessment Date Assessment LastModified by Organization Details LastModified Time 11/02/2022 11/02/2022 Annual gynecological exam performed. Patient will come back in a year unless there are new symptoms. [email or web address] Not available 11/02/2022 09:44:02 12/13/2023 12/13/2023 Annual gynecological exam performed. Patient will come back in a year unless there are new symptoms. [email or web address] Not available 11/26/2023 12:37:09 Plan of Treatment Reminders Order Date Submit Date Provider Last Modified By Organization Details Last Modified Time Details Appointments [facility] 2024 08:00A M UBALDO DURON NP Not available Not available Not available Lab pap, IG + HR HPV - HPV regardles s but if HPV is positive need subtyping 16,18/45A dd CT/GC/Tri ch 2023 024 [facility] (Lab), [address], [place], [address], 12/21/2023 10:55:04 test, urine 2022 023 [email or web address] [place], [address], [place], [address], 11/23/2022 15:51:57 Referral None recorded. Procedures None recorded. Surgeries None recorded. Imaging MAMMO, screening , digital, bilateral 2023 024 [facility], [address], [address], [place], [address], 06/22/2024 05:01:21 MAMMO, screening , digital, bilateral [email or web address] [facility], [address], [address], [place], [address], 11/15/2022 11:09:57 Medication Orders None recorded. Patient TargetsNo targets recorded. Patient InstructionsNo instructions recorded. Reason for Referral None Reported. 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 Elmer mccartney by Sean Vera MD on 2022 [...] patie nt consi derat ions. Not Available [facility] (Lab) [address], [place], [address], 11/07/2022 17:57:39 11/24/1911/27/2022 BIOPS Y, ENDOC ERVIC AL endocervical curettage histology LSIL abnormal Not Available [employer] [facility] ([facility]) [address], [place], [address], 12/04/2022 07:04:09 11/24/1911/27/2022 BIOPS Y, ENDOC ERVIC [...] elial lesio n (LSIL ), LYDIA 1. Eben aaron al errolu e also prese nt. Not Available [facility] [facility] ([facility]) [address], [place], [address], 12/04/2022 07:04:09 11/24/19 23 11/23/2022 pregn ramesh test, urine HCG negati ve Not Available [place] [address], [place], [address], 11/23/2022 15:51:47 06/12/19 24 06/12/2023 IMAGE GUIDE D PAP AND HPV REGAR DLESS image guided Pap, HPV regardless of Pap result SEE RESULT S BELOW abnormal CASE REPOR T: Cytol ogy Gynec ologi tessa Repor t Case: [id number] Autho sree Provi coco: Raudel Cisneros Colle cted: 06/11 1404 INSTRUCTOR EXTENSION WORK Order ing Locat ion: [place] Patho logy Recei nestor: 06/12 0135 First Scree n: Gretchen Pino, [place] Patho logis t: Jaylon Humphreys MD Speci men: Scree shanae Pap - [...] jaeger (ASC- US). Elect raissa mccartney by Jaylon Humphreys MD on 2023 at [...] patie nt consi derat ions. Not Available [facility] (Lab) [address], [place], [address], 06/15/2023 17:03:32 06/12/1906/18/2023 BIOPS Y, ENDOC ERVIC AL endocervical curettage histology Negati ve normal Not Available [facility] ([facility]) [address], [place], [address], 06/18/2023 13:45:53 06/12/1906/18/2023 BIOPS Y, ENDOC ERVIC AL results (A1) [...] CERVI X UTERI (R87. 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 Elmer spear kelly d by Rich [address] rd, MD on [...] as clini juni bingham nted. Not Available [facility] (Lab) [address], [place], [address], 12/21/2023 10:55:04 12/13/19 24 12/13/2023 TRICH OMONA S VAGIN MILAGROS (RRNA ) trichomonas vaginalis ribosomal RNA (rrna) Negati ve negati ve Not Available [facility] (Lab) [address], [place], [address], 12/21/2023 10:55:04 12/13/19 24 12/13/2023 CT/GC ([place]) , THINP REP VIAL chlamydia trachomatis, PCR Negati ve negati ve Not Available [facility] (Lab) [address], [place], [address], 12/21/2023 10:55:05 12/13/19 24 12/13/2023 CT/GC ([place]) , THINP REP VIAL neisseria gonorrhoeae, PCR Negati ve negati ve Not Available [facility] (Lab) [address], [place], [address], 12/21/2023 10:55:05 12/22/19 23 12/21/2022 MAMMO , scree shanae, digit al, bilat eral No observ ation record ed. [facility] [address], [place], [address], 06/19/2023 12:16:54 02/01/20 24 02/01/2024 imagi ng/di agnos tic resul t No observ ation record ed. [facility] [address], [place], [address], 02/05/2024 12:42:32 Result Notes None recorded. Problems Name Problem SNOMED Code Status Onset Date Resolution Date Notes Provider Name and Address Organization Details Recorded Time Elevated blood-pr essure reading without diagnosi s of hyperten magen [id number] Completed 201509/06/2020 Elevated blood-pr essure reading, without diagnosi s of hyperten magen;Rec orded Elsewher e: No Locat ion: Conrad cerna [facility] S ource: EHR Honing Machine Operator Semiautomatic neelima: N Madelinti ce ID: 0001 Jonny lable Time: 04:45:00 PM Eneida Antunez [facility], [facility] 17:06:23 Venereal disease screenin g Completed 201409/06/2020 Screenin g examinat ion for venereal disease; Recorded Elsewher e: No [facility] S ource: EHR Honing Machine Operator Semiautomatic neelima: N Practi ce ID: 0001 Jonny lable Time: 08:30:00 AM Eneida Antunez [facility] 17:07:20 Pregnanc y test positive [id number] Completed 201109/06/2020 Pregnanc y examinat ion or test, positive result;R ecorded Elsewher e: No Locat ion: [facility]ara [facility]hem[facility] S ource: EHR Honing Machine Operator Semiautomatic neelima: N Practi ce ID: 0001 Jonny lable Time: 11:00:00 AM Eneida Antunez [facility] 17:06:[address] Concept Completed 201509/06/2020 Encntr for marble cleaner exam (general ) (routine ) w/o abn findings ;Recorde d Elsewher e: No Locat ion: [facility] S ource: EHR Honing Machine Operator Semiautomatic neelima: N Practi ce ID: 0001 Jonny lable Time: 04:45:00 PM Eneida Antunez [facility], [facility] 17:07:10 Steriliz ation procedur e Completed 201609/06/2020 Encounte r for steriliz ation;Re corded Elsewher e: No Locat ion: [facility]ara [facility]hem[facility] S ource: EHR Honing Machine Operator Semiautomatic neelima: N Practi ce ID: 0001 Jonny lable Time: 09:00:00 AM Eneida Antunez [facility] 1 17:07:15 Atypical squamous cells of undeterm ined signific ance on cervical Papanico laou smear [id number] Completed 201809/06/2020 Atyp squam cell of undet signfc cyto smr crvx (ASC-US) ;Recorde d Elsewher e: No [facility] Honing Machine Operator Semiautomatic neelima: N Alejandra ce ID: 0001 Jonny lable Time: 08:15:00 AM Eneida Antunez [facility] 17:06:19 Placenta previa with hemorrha ge - not delivere d [id number] Completed 201109/06/2020 Hemorrha ge from placenta previa, antepart um;Recor ded Elsewher e: No [facility] S ource: [facility] Honing Machine Operator Semiautomatic neelima: N Alejandra ce ID: 0001 Jonny lable Time: 08:15:00 AM Eneida Antunez [facility] 1 17:06:50 Pregnanc y test negative [id number] Completed 201409/06/2020 Encounte r for pregnanc y test, result negative ;Recorde d Elsewher e: No [facility]: EHR Honing Machine Operator Semiautomatic neelima: N Alejandra ce ID: 0001 Jonny lable Time: 08:30:00 AM Eneida Antunez [facility] 1 17:06:53 Malaise and fatigue [id number] Completed 201409/06/2020 Fatigue / Malaise; Recorded Elsewher e: No Locat ion: [facility] S ource: EHR Honing Machine Operator Semiautomatic neelima: N Alejandra ce ID: 0001 Jonny lable Time: 08:30:00 AM Eneida Antunez [facility] 1 17:06:44 Screenin g for malignan t neoplasm of cervix Completed 201109/06/2020 Screenin g for malignan t neoplasm s of the cervix;R ecorded Elsewher e: No Locat ion: [facility] S ource: EHR Honing Machine Operator Semiautomatic neelima: N Practi ce ID: 0001 Jonny lable Time: 11:00:00 AM Eneida Antunez [facility] 17:07:02 Pelvic and perineal pain [id number] Completed 201809/06/2020 Pelvic and perineal pain;Rec orded Elsewher e: No Locat ion: [facility] S ource: EHR Honing Machine Operator Semiautomatic neelima: N Practi ce ID: 0001 Jonny lable Time: 09:45:00 AM Eneida Antunez [facility] 17:06:48 Body mass index 30+ - obesity [id number] Completed 201506/29/2020 Body mass index (BMI) 31.0-31. 9, adult;Re corded Elsewher e: No [facility]: EHR Honing Machine Operator Semiautomatic neelima: N Practi ce ID: 0001 Jonny lable Time: 04:45:00 PM Eli Alford [facility] 10:02:38 Family planning surveill ance Completed 201209/06/2020 Contrace ptive surveill ance, unspecif ied;Thony rded Elsewher e: No Locat ion: [facility] S ource: EHR Honing Machine Operator Semiautomatic neelima: N Practi ce ID: 0001 Jonny lable Time: 11:00:00 AM Eneida Antunez [facility] 17:06:[address] Concept Completed 201609/06/2020 Encntr for general adult medical exam w/o abnormal findings ;Recorde d Elsewher e: No [facility]: EHR Honing Machine Operator Semiautomatic neelima: N Practi ce ID: 0001 Jonny lable Time: 09:30:00 AM Eneida Antunez [facility] 1 17:07:07 Removal of intraute rine device Completed 201609/06/2020 Encounte r for removal of intraute rine contrace ptive device;R ecorded Elsewher e: No Locat ion: [facility] S ource: EHR Honing Machine Operator Semiautomatic neelima: N Practi ce ID: 0001 Jonny lable Time: 08:45:00 AM Eneida Antunez [facility] 17:06:58 Hyperten sive disorder [id number] Completed 201709/06/2020 HTN;Thony rded Elsewher e: No Locat ion: [facility] S ource: EHR Honing Machine Operator Semiautomatic neelima: N Madelinti ce ID: 0001 Jonny lable Time: 08:30:00 AM Eneida Antunez [facility] 17:06:32 Low grade squamous intraepi thelial lesion on cervical Papanico laou smear [id number] 105 Completed 201809/06/2020 Low grade intrepit h lesion cyto smr crvx (LGSIL); Recorded Elsewher e: No Locat ion: [facility] S ource: EHR Honing Machine Operator Semiautomatic neelima: N Madelinti ce ID: 0001 Jonny lable Time: 08:15:00 AM Eneida Antunez [facility] 17:06:39 Adult health examinat ion Completed 201106/29/2020 Routine Medical Exam;Rec orded Elsewher e: No Locat ion: [facility] S ource: EHR Honing Machine Operator Semiautomatic neelima: N Practi ce ID: 0001 Jonny lable Time: 02:45:00 PM [facility] 10:02:31 Contrace ptive sheath status [id number] Completed 201706/29/2020 Encounte r for initial prescrip tion of other contrace ptives;R ecorded Elsewher e: No Locat ion: [facility] S ource: EHR Honing Machine Operator Semiautomatic neelima: N Madelinti ce ID: 0001 Jonny lable Time: 01:00:00 PM Eli Alford [facility] 10:02:43 Speciali zed medical examinat ion Completed 201409/06/2020 Other specifie d chlamydi al diseases ;Recorde d Elsewher e: No Locat ion: [facility] S ource: EHR Honing Machine Operator Semiautomatic neelima: N Practi ce ID: 0001 Jonny lable Time: 08:30:00 AM Eneida Antunez [facility] 17:07:13 Abdomina l bloating [id number] Completed 201806/29/2020 Bloating ;Recorde d Elsewher e: No Locat ion: [facility] S ource: EHR Honing Machine Operator Semiautomatic neelima: N Madelinti ce ID: 0001 Jonny lable Time: 01:30:00 PM Eli Alford [facility] 10:02:29 Clinical finding Completed 201906/29/2020 Abnormal findings on dx imaging of [facility] body structur es;Recor ded Elsewher e: No Locat ion: [facility] S ource: EHR Honing Machine Operator Semiautomatic neelima: N Madelinti ce ID: 0001 Jonny lable Time: 08:15:00 AM Eli Alford [facility] 10:02:41 Obesity [id number] Completed 201409/06/2020 Obesity; Recorded Elsewher e: No Locat ion: [facility] S ource: EHR Honing Machine Operator Semiautomatic neelima: N Practi ce ID: 0001 Jonny lable Time: 08:30:00 AM Eneida Antunez [facility] 17:06:47 Evaluati on finding Completed 201806/29/2020 Unsp abnormal cytolog findings in specmn from cervix uteri;Re corded Elsewher e: No Locat ion: [facility] S ource: EHR Honing Machine Operator Semiautomatic neelima: N Practi ce ID: 0001 Jonny lable Time: 01:30:00 PM Eli hyman [facility] 10:02:57 Lymphade nopathy [id number] Completed 201109/06/2020 Enlargem ent of lymph nodes;Re corded Elsewher e: No Locat ion: [facility] S ource: EHR Honing Machine Operator Semiautomatic neelima: N Practi ce ID: 0001 Jonny lable Time: 11:00:00 AM Eneida Antunez [facility] 17:06:42 Educatio n Completed 201606/29/2020 Encounte r for oth general cnsl and advice on contrace ption;Pr actice ID: 0001 Eli Alford [facility] 10:02:[address] Concept Completed 201709/06/2020 Encntr for marble cleaner exam (general ) (routine ) w abnormal findings ;Practic e ID: 0001 Eneida Antunez [facility] 17:07:09 Lesion of ovary Completed 201806/29/2020 Other ovarian cyst, left side;Pra ctice ID: 0001 Eli hyman [facility] 10:02:50 Mild hypereme sis-not delivere d [id number] Completed 201109/06/2020 Mild hypereme sis gravidar um, antepart um;Recor ded Elsewher e: No Locat ion: [facility] S ource: EHR Honing Machine Operator Semiautomatic neelima: N Practi ce ID: 0001 Jonny lable Time: 03:00:00 PM Eneida hyman [facility] 17:06:45 Speciali zed medical examinat ion Completed 201209/06/2020 Gynecolo gical Examinat ion;Thony rded Elsewher e: No Locat ion: [facility] S ource: EHR Honing Machine Operator Semiautomatic neelima: N Madelinti ce ID: 0001 Jonny lable Time: 08:30:00 AM Eneida Antunez [facility] 1 17:07:12 Lesion of ovary Completed 201806/29/2020 Other ovarian cyst, unspecif ied side;Rec orded Elsewher e: No Locat ion: [facility] S ource: EHR Honing Machine Operator Semiautomatic neelima: N Madelinti ce ID: 0001 Jonny lable Time: 04:11:41 PM Eli hyman [facility] 1 10:02:52 Infectio n screenin g Completed 201409/06/2020 Encounte r for screenin g for oth infec/pa rastc diseases ;Recorde d Elsewher e: No Locat ion: [facility] S ource: EHR Honing Machine Operator Semiautomatic neelima: N Madelinti ce ID: 0001 Jonny lable Time: 08:30:00 AM Eneida Antunez [facility] 1 17:06:34 Routine antenata l care Completed 201109/06/2020 Supervis ion of other normal pregnanc y;Record ed Elsewher e: No Locat ion: [facility] S ource: EHR Honing Machine Operator Semiautomatic neelima: N Madelinti ce ID: 0001 Jonny lable Time: 11:00:00 AM Eneida Antunez [facility] 1 17:07:00 Syphilis test finding [id number] Completed 201409/06/2020 Encntr screen for infectio ns w sexl mode of transmis s;Record ed Elsewher e: No Locat ion: [facility] S ource: EHR Honing Machine Operator Semiautomatic neelima: N Madelinti ce ID: 0001 Jonny lable Time: 08:30:00 AM Eneida Antunez [facility] 1 17:07:16 Insertio n of intraute rine contrace ptive device Completed 201209/06/2020 INSERTIO N OF IUD;Thony rded Elsewher e: No Locat ion: [facility] S ource: EHR Honing Machine Operator Semiautomatic neelima: N Madelinti ce ID: 0001 Jonny lable Time: 01:15:00 PM Eneida Antunez [facility], [facility] 1 17:06:35 Primigra carter [id number] Completed 201109/06/2020 Supervis ion of normal first pregnanc y;Record ed Elsewher e: No Locat ion: [facility] S ource: EHR Honing Machine Operator Semiautomatic neelima: N Madelinti ce ID: 0001 Jonny lable Time: 02:30:00 PM Eneida Antunez [facility] 17:06:56 Postpart um care Completed 201109/06/2020 Routine postpart um follow-u p;Record ed Elsewher e: No Locat ion: [facility] S ource: EHR Honing Machine Operator Semiautomatic neelima: N Madelinti ce ID: 0001 Jonny lable Time: 09:15:00 AM Eneida Antunez [facility] 17:06:51 Irregula r intermen strual bleeding [id number] Completed 201209/06/2020 Metrorrh agia;Rec orded Elsewher e: No Locat ion: [facility] S ource: EHR Honing Machine Operator Semiautomatic neelima: N Madelinti ce ID: 0001 Jonny lable Time: 11:00:00 AM Eneida Antunez [facility] 1 17:06:37 Human papillom avirus deoxyrib onucleic acid detected , high risk on cervical specimen [id number] Completed 201809/06/2020 Cervical high risk HPV DNA test positive ;Recorde d Elsewher e: No Locat ion: [facility] S ource: EHR Honing Machine Operator Semiautomatic neelima: N Madelinti ce ID: 0001 Jonny lable Time: 04:11:41 PM [facility] 17:06:28 Hypereme sis gravidar um with metaboli c disturba nce - not delivere d [id number] Completed 201109/06/2020 Hypereme sis gravidar um with metaboli c disturba nce, antepart um;Recor ded Elsewher e: No Locat ion: [facility] S ource: EHR Honing Machine Operator Semiautomatic neeliam: N Alejandra ce ID: 0001 Jonny lable Time: 02:45:00 PM Eneida Antunez [facility] 17:06:30 Amenorrh ea [id number] Completed 201106/29/2020 Absence of menstrua tion;Rec orded Elsewher e: No Locat ion: [facility] S ource: EHR Honing Machine Operator Semiautomatic neelima: Patel Roberts ce ID: 0001 Jonny lable Time: 11:00:00 AM Eli Alford [facility], [facility] 1 10:02:33 Central nervous system malforma tion in fetus affectin g obstetri tessa care [id number] Completed 201109/06/2020 Central nervous system malforma tion in fetus, antepart um;Recor ded Elsewher e: No Locat ion: [facility] S ource: EHR Honing Machine Operator Semiautomatic neelima: Patel Roberts ce ID: 0001 Jonny lable Time: 02:00:00 PM [facility] 17:06:20 anatomy study Completed 201109/06/2020 [facility] ANATMC SURVEY;P ractice ID: 0001 Eneida Antunez [facility] 17:06:27 Complica tion related to pregnanc y Completed 201109/06/2020 Unspecif ied antepart um complica tion;Pra ctice ID: 0001 Eneida Antunez [facility] 17:06:22 Twin pregnanc y with antenata l problem [id number] Completed 201109/06/2020 Twin pregnanc y, antepart um conditio n or complica tion;Pra ctice ID: 0001 Eneida Antunez [facility], [facility] 17:07:19 Delivery normal [id number] Completed 201106/29/2020 Normal delivery ;Practic e ID: 0001 Eli Alford null, [facility] 10:02:47 Single live from singleto n pregnanc y [id number] Completed 201109/06/2020 Mother with single liveborn ;Practic e ID: 0001 Eneida Antunez [facility], [facility] 17:07:06 Screenin g for malignan t neoplasm of rectum Completed 201409/06/2020 Screenin g for malignan t neoplasm s of the rectum;P ractice ID: 0001 Eneida Antunez [facility], [facility] 17:07:04 Problem Notes None recorded. Procedures Surgical History Date Name Laterality Status Provider Name and Address Organization Details Recorded Time 06/12/19 24 Date of Last Pap Smear completed Lizzette Mei [facility] 11/26/2023 12:36:21 12/22/19 23 Date of Last Mammogram completed Adina Powell [facility] 06/12/2023 09:49:35 11/24/19 23 Colposcopy completed Светлана Gasca [facility]- [address], [place], [address], [facility] 11/23/2022 16:58:09 11/24/19 23 Colposcopy completed Adina Powell [facility] 11/23/2022 15:51:19 10/14/19 20 IUD Insertion completed Gabo Sousa MD [address], [place], [address], [place] [facility] 10/14/2019 17:47:10 02/05/18 97 LEEP completed Eli Alford [facility] 06/28/2020 14:27:13 02/05/18 84 plastic repair procedure completed Mary Jane Vargas [facility] 12/13/2021 10:06:01 extraction of wisdom tooth completed [facility] 08/29/2019 15:10:[address] [facility] 08/29/2019 15:11:04 Imaging Results None recorded. [...] Not available Not available Not available 08/29/2019 20252 8003 SNOMED [facility] [facility] 0 15:09:06 Medications Name Sig Start Date Stop Date Status Note LastModified by Organization Details LastModified Time amoxicill in 500 mg capsule take 1 capsule (500MG) by oral route every 8 hours for 10 days 11/24 completed Prescrib ed Elsewher e: No Locat ion: [facility] odify By: hua felipe DateTime : 11/16/19 12 08:30:00 AM Not Available Not Available Not Available Mirena 21 mcg/24 hr (up to 8 years) 52 mg intrauter ine device 01/22 completed Prescrib ed Elsewher e: Yes Loca tion: [facility] odify By: amzafar craftunter DateTime : 08/29/19 17 09:00:00 AM Not Available Not Available Not Available clindamyc in 1 %-benzoyl peroxide 5 % topical gel 09/07 completed Not Available Not Available Not Available Reglan 10 mg tablet take 1 tablet (10MG) by oral route 4 times every day 30 minutes before meals and at bedtime 02/13 completed Prescrib ed Elsewher e: No Locat ion: [facility] odify By: odilia felipe DateTime : 04/07/19 12 02:45:00 PM Not Available Not Available Not Available Multi-Vit silver HP/Minera ls capsule 03/31 completed Prescrib ed Elsewher e: Yes Loca tion: [facility] odify By: david Kaurte r DateTime : 02/07/19 19 08:15:00 AM Not Available Not Available Not Available Metrogel Vaginal 0.75 % (37.5 mg/5 gram) insert 1 applicat orful by vaginal route every day at bedtime 07/27 completed Prescrib ed Elsewher e: No Locat ion: [facility] odify By: david Gallardo r DateTime : 01/06/20 15 08:30:00 AM Not Available Not Available Not Available Vitamin D2 1,250 mcg (50,000 unit) capsule take 1 capsule by oral route every week for 8 weeks. 08/09 completed Prescrib ed Elsewher e: No Locat ion: [facility] odify By: mariza craftunter DateTime : 01/08/20 15 01:13:07 PM Not Available Not Available Not Available ParaGard T 380A 380 square mm intrauter ine device Take by intraute rine route. active Not Available Not Available No t Available spironola ctone 50 mg tablet take 1 tablet (50MG) by oral route every day 07/21 completed Prescrib ed Elsewher e: No Locat ion: [facility] odify By: nicolle Gallardo r DateTime : 06/13/19 13 08:30:00 AM Not Available Not Available Not Available amoxicill in 875 mg-potass ium clavulana te 125 mg tablet TAKE 1 TABLET BY MOUTH TWICE DAILY 12/12 completed Not Available Not Available Not Available Vitamin C 500 mg capsule,e xtended release 07/21 completed Prescrib ed Elsewher e: Yes Loca tion: [facility] odify By: nicolle Gallardo r DateTime : 02/13/19 13 01:15:00 PM Not Available Not Available Not Available Vitamins and Minerals tablet 01/05 completed Prescrib ed Elsewher e: Yes Loca tion: [facility] odify By: [email or web address] anant Kaur ter DateTime : 02/13/19 13 01:15:00 PM Not Available Not Available Not Available Alta 0.35 mg tablet take 1 tablet by oral route every day 02/07 completed Prescrib ed Elsewher e: No Locat ion: [facility] odify By: giovanni ortiz DateTime : 06/06/19 18 01:00:00 PM Not Available Not Available Not Available multivita min 11/02 completed Not Available Not Available Not Available B-12 Plus 5,000 mcg-100 mcg sublingua l tablet 07/21 completed Prescrib ed Elsewher e: Yes Loca tion: [facility] odify By: nicolle Gallardo r DateTime : 02/13/19 13 01:15:00 PM Not Available Not Available Not Available Probiotic 10 billion cell capsule 03/31 completed Prescrib ed Elsewher e: Yes Loca tion: [facility] odify By: david Gallardo r DateTime : 02/07/19 19 08:15:00 AM Not Available Not Available Not Available Triveen-D uo DHA 29 mg-1 mg-400 mg oral pack take 2 by Oral route every day for 30 days 04/28 completed Prescrib ed Elsewher e: No Locat ion: [facility] odify By: azul ortiz DateTime : 03/31/19 12 11:00:00 AM Not Available Not Available Not Available Fish Oil 100 mg-160 mg-1,000 mg capsule 07/21 completed Prescrib ed Elsewher e: Yes Loca tion: [facility] odify By: nicolle Gallardo r DateTime [...] Updated DateTime 06/12/2023 160.66 cm 27.4 kg/m2 36385.41 g 153 mm[Hg] 97 mm[Hg] Adina Powell [facility] 09:47:06 Date Recorded Systolic blood pressure Diastolic blood pressure Provider Name and Address Organization Details Last Updated DateTime 11/02/2022 126 mm[Hg] 82 mm[Hg] Светлана Gasca [facility] [address], [place], [address], [facility] 11/02/2022 09:58:47 Date Recorded Body height Body mass index (BMI) Body weight Provider Name and Address Organization Details Last Updated DateTime 11/02/2022 160.66 cm 30.9 kg/m2 59047.26 g Adina Powell [facility] 11/02/2022 09:44:10 Date Recorded Systolic blood pressure Diastolic blood pressure Provider Name and Address Organization Details Last Updated DateTime 11/23/2022 122 mm[Hg] 78 mm[Hg] Светлана Gasca [facility]- [address], [place], [address], [facility] 11/23/2022 16:57:05 Date Recorded Body height Body mass index (BMI) Body weight Systolic blood pressure Diastolic blood pressure Provider Name and Address Organization Details Last Updated DateTime 11/23/2022 160.66 cm 30.9 kg/m2 01510.26 g 160 mm[Hg] 104 mm[Hg] Adina Powell [facility] 3 15:50:36 Date Recorded Body height Body mass index (BMI) Body weight Systolic blood pressure Diastolic blood pressure Provider Name and Address Organization Details Last Updated DateTime 12/13/2023 160.66 cm 31.3 kg/m2 87981.44 g 163 mm[Hg] 106 mm[Hg] Lizzette Mie [facility] 4 09:27:38 Social History Question Answer Notes LastModified by Organizat ion Details LastModified Time Tobacco Smoking Status Never Smoker Eneida Antunez obogie, [facility] 09/06/2020 17:05:21 Do You Have An Advance Directive? No Information n ot available 06/29/2020 How Many Years Have You Consumed Alcohol? [...] Or The Highest Degree You Have Received? [id number] Information not available 06/29/2020 Are There Any [...] IV Drugs? No Information not available 06/29/2020 Do You Have Difficulty Walking Or Climbing Stairs? No [email or web address] Information not available 12/13/2021 Sex: Unknown Functional Status Question Answer Note LastModified by Organizat ion Details LastModified Time Do you use any illicit or recreational drugs? No Information not available 06/29/2020 What is your level of alcohol consumption? Occasional [id number] Information not available 12/09/2019 Are you able to walk? YESWOREST Information not available 06/29/2020 Are you able to care for yourself? 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 No [email or web address] Information not available 12/13/2021 What is your exercise level? Moderate Information not available 09/06/2020 Mental Status Question Answer Note LastModified by Organization D etails LastModified Time Do you feel stressed (tense, restless, nervous, or anxious, or unable to sleep at night)? [id number] Information not available 09/06/2020 Family History Relationship Description Onset Age of this Age Resolved Age Notes LastModified by Organization Details LastModified Time Maternal Grandmother Aneurysm [email or web address] Not available 06/29 09:24:53 Father Hypertensive disorder [email or web address] Not available 2019 15:08:14 Father Malignant neoplasm of lung [email or web address] Not available 2023 09:29:01 Mother Cyst of ovary [email or web address] Not available 2020 09:24:53 Paternal Grandmother Congenital heart disease [email or web address] Not available 2020 09:24:53 Paternal Grandmother Diabetes mellitus [email or web address] Not available 2019 15:08:50 Medical History Condition Response Allergies (Food, seasonal, environmental ) N Other N Drug/Latex Allergies/Reactions Y Blood Transfusion N Breast Cancer N Dermatologic Disorders N Lung Disease N Defects or Inherited Disease N Breast Problem N Gestational Diabetes N Hematologic disorders N Anesthesia Complications N History of STI Y Deep Vein Thrombosis N Polycystic ovary syndrome N Anxiety Disorder N Autoimmune disease N Arthritis N Polyps N Infertility N Acid Reflux (GERD) N History of abnormal pap Y Cancer N Varicosities N Stroke N Neurologic/Epilepsy N Endometriosis N High Cholesterol N Fibromyalgia N Headaches N Kidney Disease N Heart Problems N Thyroid Problems N Kidney or Bladder Problems N GI Problems N Eating Disorder [...] Diagnosis/Indication Diagnosis SNOMED-CT Code Diagnosis ICD10 Code Diagnosis Note [id number] FAUSTO [facility] [address] [address] 09/05/2019 15:17:10 09/05/2019 16:39:33 Gynecologic examination [id number] Z01.419 Take Calcium with Vitamin D 1200mg daily if not receiving in daily diet. It is strongly advised to have an annual flu shot and up can obtain at most pharmacies . If you have not had a TDap shot in the last 10 years you should obtain one as well. Discussed with patient & provided with informatio n regarding Gardisil vaccine to prevent the 4 strains for HPV that cause cervical cancer if under age 26. Encourage safe sexual practices, to use condoms and limit partners if not already in a monogamous relationsh ip. Do monthly self breast exams. Have mammogram yearly or every other year depending on family history. BRCA testing is now available for patients with strong genetic history of female cancer. If interested contact the office. Engage in daily exercise of low impact aerobic exercise 45-60 minutes 4-5 times weekly. Avoid tobacco and illicit drugs as well as using moderation with alcohol intake less than 1-2 8 oz beverages daily. This lifestyle behavior pattern will lead to less health conditions and longer life span. If BMI greater than 25 weight watchers or dietary consult advised. Patient received above instructio ns, and questions have been answered. If you have any questions please call or respond to this email. Patient was made aware of the patient portal and may obtain a paper copy of today's plan if desired. [facility] ion [facility] management [id number] Z30.9 Wants to consider paraguard IUD. We agreed to wait until pap/hpv results return to ensure no further evaluation /testing is required as has Hx of abn pap. Last pap LGSIL 08/19/2018. Discussed all control options and pt would like mirena IUD. I have discussed in detail all risks and benefits including risk of infection and perforatio n. She understand s she will need to contact office with next menses or may abstain, complete serum HCG day before placement, if neg can have IUD placed next day. Aware of need to verify with insurance device coverage. Literature given. [place] questions [place]. [id number] Gabo Sousa MD [facility] [address] [address] 09/29/2019 09:12:02 09/29/2019 10:22:14 Indistinct lesion 126455910 R93.89 [id number] Gabo Sousa MD [facility] [address] [address] 09/29/2019 09:13:06 09/29/2019 10:28:07 Mass of ovary 139918434 R19.09 Palpitations 12421103 R0 0.2 Contracept ion care management 287772515 Z30.9 This patient is a 39-year-ol d female presents for follow-up on ovarian lesion. She had a follow-up ultrasound today on this ovarian lesion. She still has a 5-6 cmhyperech oiclesion on the were right ovary. The right ovary now has a 24 mm follicle as well. Patient reports chest discomfort and a sinking feeling in her chest with tachycardi a. We talked about cardiology evaluation agreed to get her a cardiology consult. She also has some family planning /contracep tive management issues. We agreed to insert copper IUD at a future [facility] t. We discussed these 3 complex issues. We spent 25 minutes face-to-fa ce. More than 50% of that was counseling . She will follow up in 3 months for follow-up on ovarian lesion. She is to have ultrasound and meeting with me afterwards . [id number] Gabo Sousa MD [facility] [address] [address] 10/14/2019 16:56:00 10/14/2019 18:22:03 Contraception care management [id number] Z30.9 IUD was inserted without complicati ons. She tolerated the procedure well. [id number] Gabo Sousa MD [facility] [address] [address] 11/10/2019 09:40:45 11/10/2019 10:22:26 Contraception care management [id number] Z30.9 This patient is [id number] ho presents for IUD check. She hadaparagu ardIUDinse rted approximat matias 1 month ago. She has no complaints . She denies any excessive bleeding or pain. She has had some cramping and some spotting. Otherwise, she feels that is going well and wants to continue her IUD. [id number] Gabo Sousa MD [facility] [address] [address] 12/29/2019 09:32:32 12/29/2019 10:08:20 Abnormal radiologic density 44758959 R93.89 [id number] Gabo Sousa MD [facility] [address],[place] [address] 12/29/2019 09:33:26 12/29/2019 12:09:39 Mass of ovary 280016613 R19.09 This patient is a 39-year-ol d female presents for follow-up on ovarian lesion. The ovarian you lesion is stable. It may be slightly larger that was a year ago. It is ahyperecho iclesion that is avascular. She has no symptoms. We discussed follow-up. We agreed to repeat ultrasound 6 months. [id number] Gabo Sousa MD [facility] [address],[place] [address] 06/29/2020 09:24:02 06/29/2020 10:13:03 Abnormal radiologic density 40021694 R93.89 [id number] Gabo Sousa MD [facility] [address],[place] [address] 06/29/2020 09:24:39 06/29/2020 10:27:34 Mass of ovary 385588885 R19.09 This patient is a 40-year-ol d female who presents follow-up on hyperechoi c ovarian nodule. It is stable. The size is unchanged. There is no vascularit y. The patient would like more follow-up . I believe that is reasonable . I recommende d follow-up in in about 8 months. We agreed to 8 months. she will return for ultrasound and follow-up in 8 month. [id number] Светлана Gasca [facility] [address],[place] [address] 09/07/2020 09:52:30 09/09/2020 10:42:31 Gynecologic examination 33520197 Z01.419 Take Calcium with Vitamin D 1200mg daily if not receiving in daily diet. It is strongly advised to have an annual flu shot and up can obtain at most pharmacies . If you have not had a TDap shot in the last 10 years you should obtain one as well. Discussed with patient & provided with informatio n regarding Gardisil vaccine to prevent the 4 strains for HPV that cause cervical cancer if under age 26. Encourage safe sexual practices, to use condoms and limit partners if not already in a monogamous relationsh ip. Do monthly self breast exams. Have mammogram yearly or every other year depending on family history. BRCA testing is now available for patients with strong genetic history of female cancer. If interested contact the office. Engage in daily exercise of low impact aerobic exercise 45-60 minutes 4-5 times weekly. Avoid tobacco and illicit drugs as well as using moderation with alcohol intake less than 1-2 8 oz beverages daily. This lifestyle behavior pattern will lead to less health conditions and longer life span. If BMI greater than 25 weight watchers or dietary consult advised. Patient received above instructio ns, and questions have been answered. If you have any questions please call or respond to this email. Patient was made aware of the patient portal and may obtain a paper copy of today's plan if desired.Pa p/hpv sentSTD sentMammo orderedNo issues or concerns.D oing well with Paraguard IUD [id number] Gabo Sousa MD [facility] [address],[place] [address] 12/17/2020 13:49:11 12/18/2020 10:39:13 Mass of ovary 070871927 R19.09 this patient is a 40-year-ol d female who presents for follow-up on ovarian lesion. Her ultrasound was performed. We reviewed the results together. We reviewed the images. The lesion is stable. She does have a prominent follicle on the contralate ral or ovary. Her IUD is well placed. We discussed these findings. We agreed to follow-up on lesion in 1 year. Spent more than 15 minutes face-to-fa ce discussing her ultrasound findings An appropriat e follow-up. [id number] Gabo Sousa MD [facility] [address],[facility] [place] [address] 12/17/2020 13:44:31 12/17/2020 14:55:02 Cyst of ovary 61949638 N83.209 [id number] Светлана Gasca [facility] [address],[facility] [place] [address] 10/31/2021 09:30:18 10/31/2021 10:08:54 Gynecologic examination 95930494 Z01.419 Z11.51 Z11.3 Z11.8 Take Calcium with Vitamin D 1200mg daily if not receiving in daily diet. It is strongly advised to have an annual flu shot and up can obtain at most pharmacies . If you have not had a TDap shot in the last 10 years you should obtain one as well. Discussed with patient & provided with informatio n regarding Gardisil vaccine to prevent the 4 strains for HPV that cause cervical cancer if under age 26. Encourage safe sexual practices, to use condoms and limit partners if not already in a monogamous relationsh ip. Do monthly self breast exams. Have mammogram yearly or every other year depending on family history. BRCA testing is now available for patients with strong genetic history of female cancer. If interested contact the office. Engage in daily exercise of low impact aerobic exercise 45-60 minutes 4-5 times weekly. Avoid tobacco and illicit drugs as well as using moderation with alcohol intake less than 1-2 8 oz beverages daily. This lifestyle behavior pattern will lead to less health conditions and longer life span. If BMI greater than 25 weight watchers or dietary consult advised. Patient received above instructio ns, and questions have been answered. If you have any questions please call or respond to this email. Patient was made aware of the patient portal and may obtain a paper copy of today's plan if desired.Pa p/hpv sent STD Screen sent Genetic Screen discussed Colon Screen na Dexa Screen na Routine Labs PCPMammo ordered Postcoital bleeding 4888 0000 N93.0 Will update pap/std screeningT rimmed IUD strings slightlyCe rvix friable but no tenderness /painIf Pap/STD Screening is WNL she will monitor unless additional sx's begin or frequency of PCB increases. Has upcoming f/u US 12/2021 for ovarian cyst which will also serve as IUD check. [id number] Gabo Sousa MD [facility] [address] [address] 12/13/2021 09:24:57 12/13/2021 13:43:42 Postcoital bleeding 68475499 N93.0 this patient is a 41-year-ol d female who presents for follow-up on postmenopa usal bleeding and ultrasound . She has a IUD that appears to be lower than ideal in the intrauteri ne cavity. I feel it is effective. Is not appear to be at risk of falling out. But I feel like we need to follow this and the patient agrees. We agreed to follow-up on ultrasound in 3 months on this malpositio daiana /normally positioned IUD. I asked her to check her cervix for extrusion of the IUD. Talked about treatments and possible continued evaluation of postmenopa usal bleeding. She is on 9 postcoital bleeding rather, she is fine with this bleeding. She does not want any treatment or further evaluation . We talked about her ultrasound results. Is pretty normal. She does have this stable nodule on her ovary. She had a Pap smear that was ASCUS HPV positive we discussed that too. We spent over 30 minutes face-to-fa ce. More than 50% was counseling . Abnormal u terine bleeding [id number] 9100 N93.9 [id number] Gabo Sousa MD [facility] [address] [address] 12/13/2021 09:25:29 12/13/2021 11:40:13 Postcoital bleeding 76366131 N93.0 this patient is a 41-year-ol d female who presents for follow-up on postmenopa usal bleeding and ultrasound . She has a IUD that appears to be lower than ideal in the intrauteri ne cavity. I feel it is effective. Is not appear to be at risk of falling out. But I feel like we need to follow this and the patient agrees. We agreed to follow-up on ultrasound in 3 months on this malpositio daiana /normally positioned IUD. I asked her to check her cervix for extrusion of the IUD. Talked about treatments and possible continued evaluation of postmenopa usal bleeding. She is on 9 postcoital bleeding rather, she is fine with this bleeding. She does not want any treatment or further evaluation . We talked about her ultrasound results. Is pretty normal. She does have this stable nodule on her ovary. She had a Pap smear that was ASCUS HPV positive we discussed that too. We spent over 30 minutes face-to-fa ce. More than 50% was counseling . [id number] MD Charity Grullon [address],[place] [address] 03/16/2022 09:33:42 03/16/2022 10:08:30 Cyst of left ovary [id number] N83.292 T83.39XA [id number] Gabo Sousa MD [facility] [address],[place] [address] 03/16/2022 10:06:12 03/16/2022 11:07:09 Hemorrhagic cyst of ovary [id number] N83.209 42-year-ol d female with hemorrhagi c left ovarian cyst. We are following up on a hyperechoi c nodule. The hyperechoi c nodule stable. She has no pain with hemorrhagi c cyst. We spent more than 20 minutes face-to-fa ce. More than 50% was counseling . We agreed to repeat ultrasound in 8 weeks for hemorrhagi c cyst. We will also be following the hyperechoi c knowledgea ble and the placement the IUD. The patient the IUD is at the mid endometriu m. It is normal basically. [id number] Gabo Sousa MD [facility] [address],[place] [address] 05/25/2022 09:38:00 05/25/2022 15:16:38 Postoperative care [id number] Z48.89 42-year-ol d female presents for follow-up on pelvic ultrasound . She has resolution of her hemorrhagi c cyst and the hyperechoi c nodule is stable and small. We can disregard that. We agree to follow symptoms. We will care for her as clinically indicated for any forthcomin g problems. [id number] Gabo Sousa MD [facility] [address],[place] [address] 05/25/2022 09:38:11 05/25/2022 10:06:05 Cyst of left ovary [id number] N83.292 [id number] Светлана Gasca [facility] [address],[place] [address] 11/02/2022 09:34:25 11/02/2022 10:13:22 Gynecologic examination 81146220 Z11.51 Z11.8 Z11.3 Take Calcium with Vitamin D 1200mg daily if not receiving in daily diet. It is strongly advised to have an annual flu shot and up can obtain at most pharmacies . If you have not had a TDap shot in the last 10 years you should obtain one as well. Discussed with patient & provided with informatio n regarding Gardisil vaccine to prevent the 4 strains for HPV that cause cervical cancer if under age 26. Encourage safe sexual practices, to use condoms and limit partners if not already in a monogamous relationsh ip. Do monthly self breast exams. Have mammogram yearly or every other year depending on family history. BRCA testing is now available for patients with strong genetic history of female cancer. If interested contact the office. Engage in daily exercise of low impact aerobic exercise 45-60 minutes 4-5 times weekly. Avoid tobacco and illicit drugs as well as using moderation with alcohol intake less than 1-2 8 oz beverages daily. This lifestyle behavior pattern will lead to less health conditions and longer life span. If BMI greater than 25 weight watchers or dietary consult advised. Patient received above instructio ns, and questions have been answered. If you have any questions please call or respond to this email. Patient was made aware of the patient portal and may obtain a paper copy of today's plan if desired.Pa p/hpv sentSTD Screen sentGeneti c Screen discussedC olon Screen naDexa Screen naRoutine Labs PCPMammo ordered Screening mammography 24 [id number] Z12.31 [id number] Светлана Gasca [facility] [address] [address] 11/23/2022 15:34:13 11/23/2022 17:07:56 Screening procedure 06593027 Z13.9 Atypical s quamous cells of undetermined significance on cervical Papanicolaou smear [id number] R87.610 See procedure notes.Post -procedure instructio ns reviewed with understand ing verbalized .Will contact with results & next steps in plan of care. ASCUS positive with neg HPV 2yrs in a row.Exam appears neg but did ecc to ensure we are not missing anything.W e discussed ASCUS with neg HPV pap smears. Will update on results. [id number] С[facility]а [facility] [address] [address] 11/29/2022 16:54:57 12/01/2022 03:59:26 Low grade squamous intraepithelial lesion on cervical Papanicolaou smear [id number] R87.612 ECC resulted in LGSIL from a ASCUS w/NEG HPV pap smear . Counseled on Pap/HPV guidelines /Testing/R esults with understand ing verbalized .All questions answered to patient satisfacti on. Booklet & additional resources regarding pap smear/HPV/ Pap results given. [email or web address].cancer.g ov/types/c ervical/un derstandin g-abnormal -hpv-and-p ap-test-re sults/unde rstanding- cervical-c hanges.pdf We agreed to R/P pap/hpv/EC C x 6mos at this time. Understand ing verbalized . Total time of tele-visit was approx 20 mins with >50% consisting of counseling , education of patient's plan of care. [id number] [facility] [address] [address] 06/12/2023 09:20:25 06/12/2023 12:45:58 Human papillomavirus deoxyribonucleic acid detected, high risk on cervical specimen [id number] R87.810 Due today for 6mos repeat pap/hpv/ec c.Testing collected and sentWill update on results. Time spent in visit is a total of 15 mins with at least 50% of visit consisting of counseling and review of plan of care. [id number] Gabo Sousa MD [facility] [address] [address] 12/13/2023 09:19:46 12/13/2023 10:13:59 Gynecologic examination [id number] Z01.419 Annual gynecologi tessa exam performed. Patient will come back in a year unless there are new symptoms. Suggest Calcium with Vitamin D if not eating in diet. Patient advised to get annual flu shot. Recommend yearly physicals and perform monthly breast exams. Genetic testing is available for patients with family history of cancer. Engage in safe sexual practices, use condoms. Encouraged to have daily exercise. Avoid tobacco and illicit drugs, moderation of alcohol. If BMI greater than 25 dietary consult advised. If you have any questions please call or email. mammogram- DUE; pt to schedule; order given colon cancer screening - n/a DEXA scan- n/a Pap smear- pap w/ HPV collected (6 month f/u - hx of recurrent ASCUS results) - most recent pap/ecc/HP V testing was ASCUS, HPV neg, benign ECC 06/2023) laboratory evaluation - PCP STI testing - requested Screening mammography [id number] Z12.31 Contracept ion care management [id number] Z30.9 Pt happy with copper IUD. Strings intact/vis ible. Venereal d isease screening [id number] Z11.3 Pt requested STI testing for GC/CT.Disc ussed the various types of STDs, related symptoms and the potential consequenc es (including effects on fertility) of STD infections . Reviewed ways to limit exposure and prevention techniques . Elevated blood-pressure reading without diagnosis of hypertension [id number] R03.0 Discussed elevated BP readings today.Alicia ent denied hx of HTN.Pt denied SOB, chest pain, dizziness, palpitatio ns, severe headache. Discussed that if pt experience s these symptoms with elevated BP then she needs to go to the ER.Recomme nded hat patient obtain BP cuff and check BP twice daily and record readings.P atient to call PCP today and f/u with PCP regarding elevated BP readings.P atient to call office if she cannot get appointmen t with PCP within the next week as she may RTO for BP check at our office. Pt verbalized understand ing. Health Concerns Section Related Observation LastModified by Organization Detai ls LastModified Time None Recorded Concern Status LastModified by Organization Details LastModified Time None Recorded Advance Directives Directive N: Payers Encounter Date Sequence Insurance Name Policy Number Policy Adams Covered Member ID Adams Member ID Guarantor Name 11/02/2022 1 [place] [id number] Trish Greenfield Guess [id number] Trish M Guess 11/02/2022 2 [employer] [id number] Felix Greenfield Guess [id number] Trish M Guess 11/23/2022 1 [place] [id number] Trish M Guess [id number] Trish M Guess 11/23/2022 2 UMR [id number] Felix Greenfield Guess [id number] Trish M Guess 11/29/2022 1 [place] [id number] Trish Greenfield Guess [id number] Trish M Guess 11/29/2022 2 UMR [id number] Felix Greenfield Guess [id number] Trish M Guess 06/12/2023 1 [place] [id number] Trish M Guess [id number] Trish M Guess 06/12/2023 2 UMR [id number] Felix Greenfield Guess [id number] Trish M Guess 12/13/2023 1 [place] [id number] Trish Greenfield Guess [id number] Trish M Guess 12/13/2023 2 UMR [id number] Felix Greenfield Guess [id number] Trish Greenfield Guess Notes Date Note Type [...] smears; Needs to schedule mammogram Светлана [facility] [address], [place], [address], [facility] 11/02/2022 10:01:02 11/23/2022 text/html Here today for colposcopy for Pap ASCUS with neg HPV x . Светлана [facility]asca [facility] [address], [place], [address], [facility] 11/23/2022 17:05:38 11/29/2022 text/html Follow up for discussion of colposcopy results & next steps in POC Светлана [facility]asca [facility] [address], [place], [address], [facility] 11/30/2022 12:35:37 06/12/2023 text/html Here today for q6mos pap/hpv/ecc. Светлана [facility]asca [facility] [address], [place], [address], [facility] 06/12/2023 12:03:33 12/13/2023 text/html Annual GYNReport [...] today. UBALDO DURON NP [address], [place], [address], [facility] 12/13/2023 10:12:57 OBGyn Episode Ob Episode Information Episode Created Date Number of Fetuses Patient Bloodtype Patient rh Status Prepregnancy Weight lbs Domestic Partner Domestic Partner Phone Father Name Rn Orthopaedics Status 09/05/19 20 1 CLOSED Fetus Data First Name Last Name Admitted to NICU Weight (g) Sex Living Outcome Pediatric Complications Fetus ID Race Codes Race Delivery Type 3367 Vaginal Delivery Kobe Calculation Initial Kobe Date Initial Exam Date Initial Exam Provider Initial Ultrasound Date Last Menstrual Period Date Ultra Sound Weeks Gestation 0 Eighteen To Twenty Week Kobe Update [...] Domestic Partner Domestic Partner Phone Father Name Rn Orthopaedics Status 09/05/19 20 1 CLOSED Fetus Data First Name Last Name Admitted to NICU Weight (g) Sex Living Outcome Pediatric Complications Fetus ID Race Codes Race Delivery Type 3366 Vaginal Delivery Kobe Calculation Initial Kobe Date Initial Exam Date Initial Exam Provider Initial Ultrasound Date Last Menstrual Period Date Ultra Sound Weeks Gestation 0 Eighteen To Twenty Week Kobe Update [...]
--- OUTSIDE RECORDS SUMMARY | 2024-07-15 08:45 | XMS_ITS | Referral Summary ---
Author Organization [facility] [address] Address [address] [place] [address] Care Team Providers Care Mail Handler Name Role Phone Bairon Higginbotham DO Primary Care Provider +1- [phone] Allergies Active Allergy Reactions Criticality Noted Date Comments Sulfa (Sulfonamide Antibiotics) Unknown 10/2019 Medications multivitamin capsule Take 1 capsule by mouth daily Active Active Problems Problem Noted Date Diagnosed Date PVC's (premature ventricular contractions) 10/18 Palpitations 10/19/2019 Elevated blood pressure reading 10/19/2019 Dyslipidemia 10/19/2019 Social History Tobacco Use Types Packs/Day Years Used Date Smoking Tobacco: Former Cigarettes Smokeless Tobacco: Never Alcohol Use Standard Drinks/Week Comments Yes 2 (1 standard drink = 0.6 oz pur e alcohol) 5 drinks once or twice a month Personal Safety Answer Date Recorded Getting School Help Needed Not on file 04/20 Comments Unknown Sex and Gender Information Value Date Recorded Sex Assigned at Not on file Legal Sex Female 12:15 AM [employer]OR [employer] Gender Identity Not on file Sexual Orientation Not on file Last Filed Vital Signs Vital Sign Reading Time Taken Comments Blood Pressure 114/84 10/15/2019 3:36 PM CDT Pulse 90 10/15/2019 3:36 PM CDT Temperature - - Respiratory Rate - - Oxygen Saturation 99% 10/15/2019 3:36 PM CDT Inhaled Oxygen Concentration - - Weight 81.2 kg (179 lb) 10/15/2019 3:36 PM CDT Height 162.6 cm (5' 4) 10/15/2019 3:36 PM CDT Body Mass Index 30.73 10/15/2019 3:36 PM CDT Plan of Treatment Not on file Insurance [facility] [employer] SIG [id number] Care Teams Mail Handler Relationship Specialty Start Date End Date Bairon Higginbotham DO PCP - General Internal Medicine 10/15/19
--- OUTSIDE RECORDS SUMMARY | 2024-07-15 08:45 | XMS_ITS | Clinical Summary ---
Author Organization [facility] [address] Address [address] [place] [address] Care Team Providers Care Instructional Designer Name Role Phone Bairon Higginbotham DO Primary Care Provider +1- [phone] Allergies Active Allergy Reactions Criticality Noted Date Comments Sulfa (Sulfonamide Antibiotics) Unknown 10/2019 Medications multivitamin capsule Take 1 capsule by mouth daily Active Active Problems Problem Noted Date Diagnosed Date PVC's (premature ventricular contractions) 10/18 Palpitations 10/19/2019 Elevated blood pressure reading 10/19/2019 Dyslipidemia 10/19/2019 Surgical History Surgery Date Site/Laterality Comments FACIAL COSMETIC SURGERY TONSILLECTOMY/ADENOIDECTOMY WISDOM TOOTH EXTRACTION Medical History Medical History Date Comments Hypertension GERD (gastroesophageal reflux disease) PVC's (premature ventricular contractions) Anxiety Family History Medical History Relation Name Comments heart attack in her 50's Cousin 1 Pacemaker Cousin 2 Hyperlipidemia Father Hypertension Father Hyperlipidemia Mother Diabetes Paternal Grandfather Heart disease Paternal Grandfather Diabetes Paternal Grandmother Relation Name Status Comments Brother 1 Alive Brother 2 Alive Cousin 1 Cousin 2 Father Alive Mother Alive Paternal Grandfather Paternal Grandmother Social History Tobacco Use Types Packs/Day Years [...] on file Legal 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
[2024-07-15 16:51] LABS: Vitamin D 25 Hydroxy 37.6 ng/mL
[2024-07-15 16:54] LABS: Alanine Aminotransferase 25 U/L (6-35); Albumin Level 4.7 g/dL (3.5-5.1); Alkaline Phosphatase 76 U/L (38-126); Anion Gap 9 mmol/L (4-12); Aspartate Amino Transferase 63 U/L (14-36); Bilirubin,Total 0.6 mg/dL (0.2-1.3); Blood Urea Nitrogen 20 mg/dL (7-17); Calcium 9.6 mg/dL (8.4-10.2); Carbon Dioxide 27 mmol/L (22-30); Chloride 103 mmol/L (98-107); Cholesterol 196 mg/dL (0-200); Estimated Glomerular Filt Rate 59; Glucose 86 mg/dL (65-110); HDL Direct 51 mg/dL; Potassium 4.4 mmol/L (3.4-5.0); Sodium 139 mmol/L (137-145); Total Protein 7.9 g/dL (6.3-8.2); Triglycerides 133 mg/dL (<150)
[2024-07-15 17:06] LABS: LDL Cholesterol Direct 90 mg/dL
[2024-07-15 17:31] LABS: Basophils Absolute Auto 0.1 K/mm3 (0.0-0.1); Basophils Percent Auto 1.1 % (0.2-1.2); Eosinophils Absolute Auto 0.1 K/mm3 (0-0.3); Eosinophils Percent Auto 1.4 % (0-4.4); Hematocrit 45.1 % (37.0-47.0); Hemoglobin 14.7 g/dL (12.0-15.0); Immature Granulocyte Absolute 0.02 K/mm3 (0.00-0.031); Immature Granulocyte Percent A 0.4 % (0-0.5); Lymphocytes Percent Auto 30.1 % (18.3-44.2); Mean Corpuscular HGB Conc 32.6 g/dl (32-36); Mean Corpuscular Volume 95.1 fl (80-100); Mean Platelet Volume 10.8 fl (7.4-10.4); Monocytes Absolute Auto 0.4 K/mm3 (0.1-0.6); Monocytes Percent Auto 6.5 % (2.6-8.5); Neutrophils Absolute Auto 3.4 K/mm3 (1.3-6.7); Neutrophils Percent Auto 60.5 % (45.5-73.1); Platelet Count Result 190 k/mm3 (150-375); Red Blood Count 4.74 M/mm3 (4.2-5.4); Red Cell Distribution Width 12.2 % (11.5-14.5); White Blood Count 5.7 K/mm3 (4.5-10.0)
== END 2024-07-15 08:33 | disposition home or self-care (01) ==
LOC: ANHGOSHLAB 08:33
PROVIDERS: PCP Internal Medicine; Visit Provider Nurse Practitioner
DX: R74.01 Elevation of levels of liver transaminase levels (principal); E66.09 Other obesity due to excess calories; Z68.32 Body mass index [BMI] 32.0-32.9, adult
CPT/HCPCS: 36415; 80053; 80061; 82306; 85025

== ENCOUNTER 2024-08-07 08:09 | Outpatient (CLI) | payer OTHER, SELFPAY ==
--- NOTE | ~2024-08-07 | US_ITS ---
Limited Abdominal Sonogram: Real-time sonographic imaging of the right upper quadrant was performed. Clinical History: Abnormal liver enzyme levels Findings: The liver appears normal with no evidence of mass lesion or bile duct dilatation. Main por eloisa vein demonstrates normal direction of flow. The gallbladder is well distended, and demonstrates e chogenic, shadowing gallstones. No definite gallbladder wall thickening.. The common bile duct measur es 4 mm. The visualized pancreas, aorta, and IVC are unremarkable. Impression: Cholelithiasis. Reviewed, dictated and finalized at location M. Impression: Cholelithiasis.
== END 2024-08-07 08:10 | disposition home or self-care (01) ==
LOC: GOSHIMG 08:09
PROVIDERS: PCP Internal Medicine; Visit Provider Nurse Practitioner
DX: R74.01 Elevation of levels of liver transaminase levels (principal); K80.20 Calculus of gallbladder without cholecystitis without obstruction
CPT/HCPCS: 76705

== ENCOUNTER 2024-08-28 08:57 | Outpatient (CLI) | payer OTHER, SELFPAY ==
--- OUTSIDE RECORDS SUMMARY | 2024-08-28 09:02 | XMS_ITS | Data Portability ---
Author Organization [facility] Address [address] [address] [place] [address] Care Team Providers Care Castings Drafter Name Role Phone DEEDEETRISTAN STRAUSS Primary Care Provider [phone] Assessment Encounter Date Assessment Date Assessment LastModified by Organization Details LastModified Time 11/02/2022 11/02/2022 Annual gynecological exam performed. Patient will come back in a year unless there are new symptoms. [email or web address] Not available 11/02/2022 09:44:02 12/13/2023 12/13/2023 Annual gynecological exam performed. Patient will come back in a year unless there are new symptoms. [email or web address] Not available 11/26/2023 12:37:09 Plan of Treatment Reminders Order Date Submit Date Provider Last Modified By Organization Details Last Modified Time Details Appointments [facility] 2024 08:00A M UBALDO DURON, TRAFFIC SUPERINTENDENT Not available Not available Not available Lab pap, IG + HR HPV - HPV regardles s but if HPV is positive need subtyping 16,18/[address]/GC/Tri ch 2023 024 [facility] (Lab), [address], [place], [address], 12/21/2023 10:55:04 test, urine 2022 023 [email or web address] [address], [address], [place], [address], 11/23/2022 15:51:57 Referral None recorded. Procedures None recorded. Surgeries None recorded. Imaging MAMMO, screening , digital, bilateral 2023 024 [facility], [address], [place], [address], 06/22/2024 05:01:21 MAMMO, screening , digital, bilateral [address] [facility], [address], [place], [address], 11/15/2022 11:09:57 Medication Orders None recorded. Patient [...] Repor t Case: [id number] Autho heladiojodi trinidad Provi coco: Raudel Cisneros Colle cted: 11/02 1513 TRAFFIC SUPERINTENDENT Order ing Locat ion: [place] [facility] [...] ermin ed Arceliai sarita ce (ASC- [place]). Elect raissa mendoza d by Sean Vera MD on 2022 at [...] patie nt consi derat ions. Not Available [facility] (Lab) [address], [place], [address], 11/07/2022 17:57:39 11/24/1911/27/2022 BIOPS Y, ENDOC ERVIC AL endocervical curettage histology LSIL abnormal Not Available [facility] ([facility]) [address], [place], [address], 12/04/2022 07:04:09 11/24/1911/27/2022 BIOPS Y, ENDOC ERVIC [...] elial lesio n (LSIL ), LYDIA 1. Bendean n endoc agnieszka al tissu e also prese nt. Not Available [facility] ([facility]) [address] , [place], [address], 12/04/2022 07:04:09 11/24/19 23 11/23/2022 pregn ramesh test, urine HCG negati ve Not Available [facility] [address], [place], [address], 11/23/2022 15:51:47 06/12/19 24 06/12/2023 IMAGE GUIDE D PAP AND HPV REGAR DLESS image guided Pap, HPV regardless of Pap result SEE RESULT S BELOW abnormal CASE REPOR T: Cytol ogy Gynec ologi tessa Repor t Case: [id number] Autho sree abdi Provi coco: Raudel Cisneros Colle cted: 06/11 1404 TRAFFIC SUPERINTENDENT Order ing Locat ion: [place] Patho logy [...] Squam ous Cells of Undet ermin ed Marcos jaeger (ASC- [place]). Elect raissa mccartney by [...] patie nt consi derat ions. Not Available [facility] (Lab) [address], [place], [address], 06/15/2023 17:03:32 06/12/1906/18/2023 BIOPS Y, ENDOC ERVIC AL endocervical curettage histology Negati ve normal Not Available [facility] ([facility]) [address], [place], [address], 06/18/2023 13:45:53 06/12/1906/18/2023 BIOPS Y, ENDOC ERVIC [...] CERVI X UTERI (R87. 619) Not Available [facility] ([facility]) [address] , [place], [address], 06/18/2023 13:45:53 12/13/19 24 12/13/2023 IMAGE GUIDE D PAP AND HPV REGAR DLESS image guided Pap, HPV regardless of Pap result SEE RESULT S BELOW CASE REPOR T: Cytol ogy Gynec ologi tessa Repor t Case: [id number] Autho sree abdi Provi coco: Dermo dy, Ubaldo , ANP, PROPERTY ACCOUNTANT Colle cted: 12/12 0942 Order ing Locat [...] for Intra epith elial Lesio n or Maldean christine (NIL) . Infla mmato ry cell salguero es (incl udes typic al repai r). Elect yasiric ally kelly d by Rich Martinez rd, MD [...] tessa and/o r histo rical findi ngs, furth er inves tigat ion is recom isabella d, as clini juni kayed. Not Available [facility] (Lab) [address], [place], [address], 12/21/2023 10:55:04 12/13/19 24 12/13/2023 TRICH OMONA S VAGIN MILAGROS (RRNA ) trichomonas vaginalis ribosomal RNA (rrna) Negati ve negati ve Not Available [facility] (Lab) [address], [place], [address], 12/21/2023 10:55:04 12/13/19 24 12/13/2023 CT/GC ([place]) , THINP REP VIAL chlamydia trachomatis, PCR Negati ve negati ve Not Available [facility] (Lab) [address], [place], [address], 12/21/2023 10:55:05 12/13/19 24 12/13/2023 CT/GC ([place]) , THINP REP VIAL neisseria gonorrhoeae, PCR Negati ve negati ve Not Available [facility] (Lab) [address], [place], [address], 12/21/2023 10:55:05 12/22/19 23 12/21/2022 MAMMO , scree shanae, digit al, bilat eral No observ ation record ed. [facility] [address], [place], [address], 06/19/2023 12:16:54 02/01/20 24 02/01/2024 imagi ng/di agnos tic resul t No observ ation record ed. [facility] [address], [place], [address], 02/05/2024 12:42:32 Result Notes None recorded. Problems Name Problem SNOMED Code Status Onset Date Resolution Date Notes Provider Name and Address Organization Details Recorded Time Pregnanc y test positive [id number] Completed 201109/06/2020 Pregnanc y examinat ion or test, positive result;R ecorded Elsewher e: No Locat ion: Conrad cerna [facility] S ource: EHR Resident Services Supervisor neelima: N Madelinti ce ID: 0001 Jonny lable Time: 11:00:00 AM Eneida Antunez [facility] 1 17:06:55 Screenin g for malignan t neoplasm of cervix Completed 201109/06/2020 Screenin g for malignan t neoplasm s of the cervix;R ecorded Elsewher e: No Locat ion: Siomara nehemiah [facility] S ource: EHR Resident Services Supervisor neelima: N Madelinti ce ID: 0001 Jonny lable Time: 11:00:00 AM Eneida Antunez [facility] 1 17:07:02 Lymphade nopathy [id number] Completed 201109/06/2020 Enlargem ent of lymph nodes;Re corded Elsewher e: No [facility]: EHR Resident Services Supervisor neelima: N Madelinti ce ID: 0001 Jonny lable Time: 11:00:00 AM Eneida Antunez [facility] 1 17:06:42 Routine antenata l care Completed 201109/06/2020 Supervis ion of other normal pregnanc y;Record ed Elsewher e: No [facility]at [facility] S our[facility]: EHR Resident Services Supervisor neelima: N Madelinti ce ID: 0001 Jonny lable Time: 11:00:00 AM Eneida Antunez [facility] 1 17:07:00 Amenorrh ea [id number] Completed 201106/29/2020 Absence of menstrua tion;Rec orded Elsewher e: No Locat ion: [facility] S ource: EHR Resident Services Supervisor neelima: N Madelinti ce ID: 0001 Jonny lable Time: 11:00:00 AM Eli Rocío [facility] 1 10:02:33 Adult health examinat ion Completed 201106/29/2020 Routine Medical Exam;Rec orded Elsewher e: No [facility]: E[facility] Resident Services Supervisor neelima: N Alejandra ce ID: 0001 Jonny lable Time: 02:45:00 PM Eli Alford [facility], [facility] 10:02:31 Hypereme sis gravidar um with metaboli c disturba nce - not delivere d [id number] Completed 201109/06/2020 Hypereme sis gravidar um with metaboli c disturba nce, antepart um;Recor ded Elsewher e: No Locat ion: [facility] S ource: EHR Resident Services Supervisor neelima: N Madelinti ce ID: 0001 Jonny lable Time: 02:45:00 PM Eneida Antunez [facility] 17:06:30 Mild hypereme sis-not delivere d [id number] Completed 201109/06/2020 Mild hypereme sis gravidar um, antepart um;Recor ded Elsewher e: No Locat ion: [facility] S ource: EHR Resident Services Supervisor neelima: N Alejandra ce ID: 0001 Jonny lable Time: 03:00:00 PM Eneida Antunez [facility] 1 17:06:45 anatomy study Completed 201109/06/2020 SCRN ANATMC SURVEY;P ractice ID: 0001 Eneida Antunez [facility] 1 17:06:27 Placenta previa with hemorrha ge - not delivere d [id number] Completed 201109/06/2020 Hemorrha ge from placenta previa, antepart um;Recor ded Elsewher e: No Locat ion: [facility] S ource: EHR Resident Services Supervisor neelima: N Alejandra ce ID: 0001 Jonny lable Time: 08:15:00 AM Eneida Antunez [facility] 17:06:50 Primigra carter [id number] Completed 201109/06/2020 Supervis ion of normal first pregnanc y;Record ed Elsewher e: No [facility] S ource: EHR Resident Services Supervisor neelima: N Practi ce ID: 0001 Jonny lable Time: 02:30:00 PM Eneida Antunez [facility], [facility] 17:06:56 Central nervous system malforma tion in fetus affectin g obstetri tessa care [id number] Completed 201109/06/2020 Central nervous system malforma tion in fetus, antepart um;Recor ded Elsewher e: No [facility]at [facility] S ource: EHR Resident Services Supervisor neelima: N Madelinti ce ID: 0001 Jonny lable Time: 02:00:00 PM Eneida Antunez [facility], [facility] 17:06:20 Complica tion related to pregnanc y Completed 201109/06/2020 Unspecif ied antepart um complica tion;Pra ctice ID: 0001 Eneida Antunez [facility], [facility] 17:06:22 Twin pregnanc y with antenata l problem [id number] Completed 201109/06/2020 Twin pregnanc y, antepart um conditio n or complica tion;Pra ctice ID: 0001 Eneida Antunez [facility], [facility] 17:07:19 Delivery normal [id number] Completed 201106/29/2020 Normal delivery ;Practic e ID: 0001 Eli hyman, [facility] 10:02:47 Single live from singleto n pregnanc y [id number] Completed 201109/06/2020 Mother with single liveborn ;Practic e ID: 0001 Eneida Antunez [facility], [facility] 17:07:06 Postpart um care Completed 201109/06/2020 Routine postpart um follow-u p;Record ed Elsewher e: No Locat ion: Siomara nehemiah [facility] S ource: EHR Resident Services Supervisor neelima: N Madelinti ce ID: 0001 Jonny lable Time: 09:15:00 AM Eneida Antunez [facility] 17:06:51 Insertio n of intraute rine contrace ptive device Completed 201209/06/2020 INSERTIO N OF IUD;Thony rded Elsewher e: No Locat ion: [facility] nehemiah [facility] S ource: EHR [facility] neelima: N Madelinti ce ID: 0001 Jonny lable Time: 01:15:00 PM Eneida Antunez [facility] 17:06:35 Family planning surveill ance Completed 201209/06/2020 Contrace ptive surveill ance, unspecif ied;Thony rded Elsewher e: No Locat ion: [facility] nehemiah [facility] S ource: EHR [facility] neelima: N Madelinti ce ID: 0001 Jonny lable Time: 11:00:00 AM Eneida Antunez [facility] 17:06:25 Irregula r intermen strual bleeding [id number] Completed 201209/06/2020 Metrorrh agia;Rec orded Elsewher e: No Locat ion: [facility] S ource: EHR Resident Services Supervisor neelima: N Madelinti ce ID: 0001 Jonny lable Time: 11:00:00 AM Eneida Antunez [facility] 17:06:37 Speciali zed medical examinat ion Completed 201209/06/2020 Gynecolo gical Examinat ion;Thony rded Elsewher e: No Locat ion: [facility] S ource: EHR Resident Services Supervisor neelima: N Madelinti ce ID: 0001 Jonny lable Time: 08:30:00 AM Eneida hyman [facility] 17:07:12 Venereal disease screenin g Completed 201409/06/2020 Screenin g examinat ion for venereal disease; Recorded Elsewher e: No Locat ion: [facility] S ource: EHR Resident Services Supervisor neelima: N Practi ce ID: 0001 Jonny lable Time: 08:30:00 AM Eneida Antunez [facility], [facility] 17:07:20 Malaise and fatigue [id number] Completed 201409/06/2020 Fatigue / Malaise; Recorded Elsewher e: No Locat ion: [facility] S ource: EHR Resident Services Supervisor neelima: N Practi ce ID: 0001 Jonny lable Time: 08:30:00 AM Eneida Antunez [facility], [facility] 17:06:44 Speciali zed medical examinat ion Completed 201409/06/2020 Other specifie d chlamydi al diseases ;Recorde d Elsewher e: No Locat ion: [facility] S ource: EHR Resident Services Supervisor neelima: N Practi ce ID: 0001 Jonny lable Time: 08:30:00 AM Eneida Antunez [facility] 17:07:13 Obesity [id number] Completed 201409/06/2020 Obesity; Recorded Elsewher e: No Locat ion: [facility] S ource: EHR Resident Services Supervisor neelima: N Practi ce ID: 0001 Jonny lable Time: 08:30:00 AM Eneida hyman [facility] 17:06:47 Screenin g for malignan t neoplasm of rectum Completed 201409/06/2020 Screenin g for malignan t neoplasm s of the rectum;P juantice ID: 0001 Eneida hyman, [facility] 08/02/202 1 17:07:04 Pregnanc y test negative [id number] Completed 201409/06/2020 Encounte r for pregnanc y test, result negative ;Recorde d Elsewher e: No Locat ion: Conrda cerna [facility] S ource: EHR Resident Services Supervisor neelima: N Madelinti ce ID: 0001 Jonny lable Time: 08:30:00 AM Eneida Antunez [facility] 17:06:53 Infectio n screenin g Completed 201409/06/2020 Encounte r for screenin g for oth infec/pa rastc diseases ;Recorde d Elsewher e: No [facility] S ource: EHR Resident Services Supervisor neelima: N Madelinti ce ID: 0001 Jonny lable Time: 08:30:00 AM Eneida Antunez [facility] 17:06:34 Syphilis test finding [id number] Completed 201409/06/2020 Encntr screen for infectio ns w sexl mode of transmis s;Record ed Elsewher e: No Locat ion: [facility] nehemiah [facility] S ource: EHR Resident Services Supervisor neelima: N Madelinti ce ID: 0001 Jonny lable Time: 08:30:00 AM Eneida Antunez [facility] 17:07:16 Elevated blood-pr essure reading without diagnosi s of hyperten magen [id number] Completed 201509/06/2020 Elevated blood-pr essure reading, without diagnosi s of hyperten magen;Rec orded Elsewher e: No Locat ion: [facility] S ource: EHR Resident Services Supervisor neelima: N Practi ce ID: 0001 Jonny lable Time: 04:45:00 PM Eneida Antunez [facility] 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 17:07:10 Body mass index 30+ - obesity [id number] Completed 201506/29/2020 Body mass index (BMI) 31.0-31. 9, adult;Re corded Elsewher e: No Locat ion: [facility] nehemiah [facility]: N Practi ce ID: 0001 Jonny lable Time: 04:45:00 PM Eli Alford [facility] 10:02:[address] Concept Completed 201609/06/2020 Encntr for general adult medical exam w/o abnormal findings ;Recorde d Elsewher e: No Locat ion: [facility] S ource: EHR Resident Services Supervisor neelima: N Madelinti ce ID: 0001 Jonny lable Time: 09:30:00 AM Eneida Antunez [facility] 17:07:07 Steriliz ation procedur e Completed 201609/06/2020 Encounte r for steriliz ation;Re corded Elsewher e: No Locat ion: [facility] S ource: EHR Resident Services Supervisor neelima: N Madelinti ce ID: 0001 Jonny lable Time: 09:00:00 AM Eneida Antunez [facility] 17:07:15 Removal of intraute rine device Completed 201609/06/2020 Encounte r for removal of intraute rine contrace ptive device;R ecorded Elsewher e: No Locat ion: [facility] S ource: EHR Resident Services Supervisor neelima: N Practi ce ID: 0001 Jonny lable Time: 08:45:00 AM Eneida Antunez [facility] 17:06:58 Educatio n Completed 201606/29/2020 Encounte r for oth general cnsl and advice on contrace ption;Pr actice ID: 0001 Eli Alford [facility] 10:02:54 Contrace ptive sheath status [id number] Completed 201706/29/2020 Encounte r for initial prescrip tion of other contrace ptives;R ecorded Elsewher e: No Locat ion: [facility] S ource: EHR Resident Services Supervisor neelima: N Practi ce ID: 0001 Jonny lable Time: 01:00:00 PM Eli Alford [facility] 10:02:43 Hyperten sive disorder [id number] Completed 201709/06/2020 HTN;Thony rded Elsewher e: No Locat ion: [facility] S ource: EHR Resident Services Supervisor neelima: N Practi ce ID: 0001 Jonny lable Time: 08:30:00 AM Eneida Antunez [facility] 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 17:07:09 Atypical squamous cells of undeterm ined signific ance on cervical Papanico laou smear [id number] Completed 201809/06/2020 Atyp squam cell of undet signfc cyto smr crvx (ASC-US) ;Recorde d Elsewher e: No Locat ion: [facility] S ource: EHR Resident Services Supervisor neelima: N Practi ce ID: 0001 Jonny lable Time: 08:15:00 AM Eneida Antunez [facility] 17:06:19 Low grade squamous intraepi thelial lesion on cervical Papanico laou smear [id number] 105 Completed 201809/06/2020 Low grade intrepit h lesion cyto smr crvx (LGSIL); Recorded Elsewher e: No Locat ion: [facility] S ource: EHR Resident Services Supervisor neelima: N Madelinti ce ID: 0001 Jonny lable Time: 08:15:00 AM Eneida Antunez [facility] 1 17:06:39 Abdomina l bloating [id number] Completed 201806/29/2020 Bloating ;Recorde d Elsewher e: No Locat ion: [facility] ne[facility]: N Madelinti ce ID: 0001 Jonny lable Time: 01:30:00 PM Eliamalia Alford [facility] 1 10:02:29 Evaluati on finding Completed 201806/29/2020 Unsp abnormal cytolog findings in specmn from cervix uteri;Re corded Elsewher e: No Locat ion: [facility] ne[facility]: N Madelinti ce ID: 0001 Jonny lable Time: 01:30:00 PM Eli Alford [facility] 1 10:02:57 Lesion of ovary Completed 201806/29/2020 Other ovarian cyst, unspecif ied side;Rec orded Elsewher e: No Locat ion: [facility] S ource: [facility] Resident Services Supervisor neelima: N Madelinti ce ID: 0001 Jonny lable Time: 04:11:41 PM Eli Alford [facility] 1 10:02:52 Human papillom avirus deoxyrib onucleic acid detected , high risk on cervical specimen [id number] Completed 201809/06/2020 Cervical high risk HPV DNA test positive ;Recorde d Elsewher e: No Locat ion: [facility] S ource: EHR Resident Services Supervisor neelima: N Madelinti ce ID: 0001 Jonny lable Time: 04:11:41 PM Eneida Antunez [facility] 17:06:28 Pelvic and perineal pain [id number] Completed 201809/06/2020 Pelvic and perineal pain;Rec orded Elsewher e: No Locat ion: [facility] S ource: EHR Resident Services Supervisor neelima: N Madelinti ce ID: 0001 Jonny lable Time: 09:45:00 AM Eneida Antunez [facility] 17:06:48 Lesion of ovary Completed 201806/29/2020 Other ovarian cyst, left side;Pra ctice ID: 0001 Eli Alford [facility] 10:02:50 Clinical finding Completed 201906/29/2020 Abnormal findings on dx [facility] body structur es;Recor ded Elsewher e: No Locat ion: [facility] S ource: EHR Resident Services Supervisor neelima: N Alejandra ce ID: 0001 Jonny lable Time: 08:15:00 AM Eli hyman [facility] 10:02:41 Problem Notes None recorded. Procedures Surgical History Date Name Laterality Status Provider Name and Address Organization Details Recorded Time 06/12/19 24 Date of Last Pap Smear completed Lizzette Mei [facility] 11/26/2023 12:36:21 12/22/19 23 Date of Last Mammogram completed Adina Powell [facility] 06/12/2023 09:49:35 11/24/19 23 Colposcopy completed Светлана Gasca [facility]- [address], [place], [address], [facility] 11/23/2022 16:58:09 11/24/19 23 Colposcopy completed Adina Powell [facility] 11/23/2022 15:51:19 10/14/19 20 IUD Insertion completed Gabo Sosua MD [address], [place], [address], [place] [facility] 10/14/2019 17:47:10 02/05/18 97 LEEP completed Eli Alford [facility] 06/28/2020 14:27:13 02/05/18 84 plastic repair procedure completed Mary Jane Vargas [facility] 12/13/2021 10:06:01 extraction of wisdom tooth completed [facility] 08/29/2019 15:10:46 Tonsillectomy completed [facility] 08/29/2019 15:11:04 Imaging Results None recorded. [...] Not available Not available Not available 08/29/2019 [id number] SNOMED [facility] 0 15:09:06 Medications Name Sig Start Date Stop Date Status Note LastModified by Organization Details LastModified Time amoxicill in 500 mg capsule take 1 capsule (500MG) by oral route every 8 hours for 10 days 11/24 completed Prescrib ed Elsewher e: No Locat ion: [facility] odify By: tgingric h Vincent felipe DateTime : 11/16/19 12 08:30:00 AM Not Available Not Available Not Available Mirena 21 mcg/24 hr (up to 8 years) 52 mg intrauter ine device 01/22 completed Prescrib ed Elsewher e: Yes Loca tion: [facility] odify By: amkrylan Cerna ncounter DateTime : 08/29/19 17 09:00:00 AM Not Available Not Available Not Available clindamyc in 1 %-benzoyl peroxide 5 % topical gel 09/07 completed Not Available Not Available Not Available Reglan 10 mg tablet take 1 tablet (10MG) by oral route 4 times every day 30 minutes before meals and at bedtime 02/13 completed Prescrib ed Elsewher e: No Locat ion: [facility] odify By: odilia felipe DateTime : 04/07/19 12 02:45:00 PM Not Available Not Available Not Available Multi-Vit silver HP/Minera ls capsule 03/31 completed Prescrib ed Elsewher e: Yes Loca tion: [facility] odify By: david Encounte r DateTime : 02/07/19 19 08:15:00 AM Not Available Not Available Not Available Metrogel Vaginal 0.75 % (37.5 mg/5 gram) insert 1 applicat orful by vaginal route every day at bedtime 07/27 completed Prescrib ed Elsewher e: No Locat ion: [facility] By: david Encounte r DateTime : 01/06/20 15 08:30:00 AM Not Available Not Available Not Available Vitamin D2 1,250 mcg (50,000 unit) capsule take 1 capsule by oral route every week for 8 weeks. 08/09 completed Prescrib ed Elsewher e: No Locat ion: [facility] odify By: mariza ortiz DateTime : 01/08/20 15 01:13:07 PM Not Available Not Available Not Available ParaGard T 380A 380 square mm intrauter ine device Take by intraute rine route. active Not Available Not Available No t Available spironola ctone 50 mg tablet take 1 tablet (50MG) by oral route every day 07/21 completed Prescrib ed Elsewher e: No Locat ion: [facility] odify By: nicolle Gallardo r DateTime : 06/13/19 13 08:30:00 AM Not Available Not Available Not Available amoxicill in 875 mg-potass ium clavulana te 125 mg tablet TAKE 1 TABLET BY MOUTH TWICE DAILY 12/12 completed Not Available Not Available Not Available Vitamin C 500 mg capsule,e xtended release 07/21 completed Prescrib ed Elsewher e: Yes Loca tion: [facility] odify By: nicolle Gallardo r DateTime : 02/13/19 13 01:15:00 PM Not Available Not Available Not Available Vitamins and Minerals tablet 01/05 completed Prescrib ed Elsewher e: Yes Loca tion: [facility] odify By: satyahappel anant Kaur ter DateTime : 02/13/19 13 01:15:00 PM Not Available Not Available Not Available Alta 0.35 mg tablet take 1 tablet by oral route every day 02/07 completed Prescrib ed Elsewher e: No Locat ion: [facility] odify By: giovanni ortiz DateTime : 06/06/19 18 01:00:00 PM Not Available Not Available Not Available multivita min 11/02 completed Not Available Not Available Not Available B-12 Plus 5,000 mcg-100 mcg sublingua l tablet 07/21 completed Prescrib ed Elsewher e: Yes Loca tion: [facility] odify By: nicolle Gallardo r DateTime : 02/13/19 13 01:15:00 PM Not Available Not Available Not Available Probiotic 10 billion cell capsule 03/31 completed Prescrib ed Elsewher e: Yes Loca tion: [facility] odify By: david Gallardo r DateTime : 02/07/19 19 08:15:00 AM Not Available Not Available Not Available Triveen-D uo DHA 29 mg-1 mg-400 mg oral pack take 2 by Oral route every day for 30 days 04/28 completed Prescrib ed Elsewher e: No Locat ion: [facility] odify By: azul ortiz DateTime : 03/31/19 12 11:00:00 AM Not Available Not Available Not Available Fish Oil 100 mg-160 mg-1,000 mg capsule 07/21 completed Prescrib ed Elsewher e: Yes Loca tion: [facility] odify By: nicolle Gallardo r DateTime [...] Body mass index (BMI) Body weight Systolic And Diastolic Provider Name and Address Organization Details Last Updated DateTime 06/12/2023 160.66 cm 27.4 kg/m2 84895.41 g 153/97 mm[Hg] Adina Powell [facility] 06/12/2023 09:47:06 Date Recorded Systolic And Diastolic Provider Name and Address Organization Details Last Updated DateTime 11/02/2022 126/82 mm[Hg] Светлана Gasca, [facility] [address], [place], [address], [facility] 11/02/2022 09:58:47 Date Recorded Body height Body mass index (BMI) Body weight Provider Name and Address Organization Details Last Updated DateTime 11/02/2022 160.66 cm 30.9 kg/m2 88520.26 g Adina Powell [facility] 11/02/2022 09:44:10 Date Recorded Systolic And Diastolic Provider Name and Address Organization Details Last Updated DateTime 11/23/2022 122/78 mm[Hg] Светлана Gasca [facility] [address], [place], [address], [facility] 11/23/2022 16:57:05 Date Recorded Body height Body mass index (BMI) Body weight Systolic And Diastolic Provider Name and Address Organization Details Last Updated DateTime 11/23/2022 160.66 cm 30.9 kg/m2 00851.26 g 160/104 mm[Hg] Adina Powell [facility] 11/23/2022 15:50:36 Date Recorded Body height Body mass index (BMI) Body weight Systolic And Diastolic Provider Name and Address Organization Details Last Updated DateTime 12/13/2023 160.66 cm 31.3 kg/m2 20762.44 g 163/106 mm[Hg] Lizzette Mei [facility] 12/13/2023 09:27:38 Social History Question Answer Notes LastModified by Organizat ion Details LastModified Time Tobacco Smoking Status Never Smoker Eneida Antunez boogie, [facility] 09/06/2020 17:05:21 Do You Have [...] Or The Highest Degree You Have Received? [id number] Information not available 06/29/2020 Are There Any [...] Have Difficulty Walking Or Climbing Stairs? No [email or web address] Information not available 12/13/2021 Sex: Unknown Functional Status Question Answer Note LastModified by Organizat ion Details LastModified Time Do you use any illicit or recreational drugs? No Information not available 06/29/2020 What is your level of alcohol consumption? Occasional [id number] Information not available 12/09/2019 Are you able to walk? YESWOREST Information not available 06/29/2020 Are you able to care for yourself? 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 No [email or web address] Information not available 12/13/2021 What is your exercise level? Moderate Information not available 09/06/2020 Mental Status Question Answer Note LastModified by Organization D etails LastModified Time Do you feel stressed (tense, restless, nervous, or anxious, or unable to sleep at night)? [id number] Information not available 09/06/2020 Family History Relationship Description Onset Age of this Age Resolved Age Notes LastModified by Organization Details LastModified Time Maternal Grandmother Aneurysm [email or web address] Not available 06/29 09:24:53 Father Hypertensive disorder [email or web address] Not available 2019 15:08:14 Father Malignant neoplasm of lung [email or web address] Not available 2023 09:29:01 Mother Cyst of ovary [email or web address] Not available 2020 09:24:53 Paternal Grandmother Congenital heart disease [email or web address] Not available 2020 09:24:53 Paternal Grandmother Diabetes mellitus [email or web address] Not available 2019 15:08:50 Medical History Condition [...] SNOMED-CT Code Diagnosis ICD10 Code Diagnosis Note [id number] FAUSTO [facility] [address] [address] 09/05/2019 15:17:10 09/05/2019 16:39:33 Gynecologic examination 45289472 Z01.419 Take Calcium with Vitamin D 1200mg [...] paper copy of today's plan if desired. [facility] ion care management 039897245 Z30.9 Wants to consider paraguard IUD. We [...] All questions [place]. [id number] Gabo Sousa MD [facility] [address] [address] 09/29/2019 09:12:02 09/29/2019 10:22:14 Indistinct lesion 573211100 R93.89 [id number] MD Charity Grullon [address] [address] 09/29/2019 09:13:06 09/29/2019 10:28:07 Mass of ovary 392082724 R19.09 Palpitations 23462486 R0 0.2 Contracept ion care management 208591827 Z30.9 This patient is a 39-year-ol d [...] to insert copper IUD at a future [facility] t. We discussed these 3 complex issues. We spent 25 minutes face-to-fa ce. More than 50% of that was counseling . She will follow up in 3 months for follow-up on ovarian lesion. She is to have ultrasound and meeting with me afterwards . [id number] Gabo Sousa MD [facility] [address],[place] [address] 10/14/2019 16:56:00 10/14/2019 18:22:03 Contraception care management 305507140 Z30.9 IUD was inserted without complicati ons. She tolerated the procedure well. [id number] Gabo Sousa MD [facility] [address] [address] 11/10/2019 09:40:45 11/10/2019 10:22:26 Contraception care management 719413421 Z30.9 This patient is [id number] ho presents for IUD check. She hadaparagu ardIUDinse rted approximat matias 1 month ago. She has no complaints . She denies any excessive bleeding or pain. She has had some cramping and some spotting. Otherwise, she feels that is going well and wants to continue her IUD. [id number] Gabo Sousa MD [facility] [address] [address] 12/29/2019 09:32:32 12/29/2019 10:08:20 Abnormal radiologic density 28237908 R93.89 [id number] Gabo Sousa MD [facility] [address],[place] [address] 12/29/2019 09:33:26 12/29/2019 12:09:39 Mass of ovary 738907036 R19.09 This patient is a 39-year-ol d female presents for follow-up on ovarian lesion. The ovarian you lesion is stable. It may be slightly larger that was a year ago. It is ahyperecho iclesion that is avascular. She has no symptoms. We discussed follow-up. We agreed to repeat ultrasound 6 months. [id number] Gabo Sousa MD [facility] [address],[place] [address] 06/29/2020 09:24:02 06/29/2020 10:13:03 Abnormal radiologic density 47412575 R93.89 [id number] Gabo Sousa MD [facility] [address],[place] [address] 06/29/2020 09:24:39 06/29/2020 10:27:34 Mass of ovary 160221009 R19.09 This patient is a 40-year-ol d [...] for ultrasound and follow-up in 8 month. [id number] [facility] [address],[place] [address] 09/07/2020 09:52:30 09/09/2020 10:42:31 Gynecologic examination 86641157 Z01.419 Take Calcium with Vitamin D 1200mg [...] or concerns.D oing well with Paraguard IUD [id number] Gabo Sousa MD [facility] [address],[place] [address] 12/17/2020 13:49:11 12/18/2020 10:39:13 Mass of ovary 444765364 R19.09 this patient is a 40-year-ol d [...] her ultrasound findings An appropriat e follow-up. [id number] Gabo Sousa MD [facility] [address] [address] 12/17/2020 13:44:31 12/17/2020 14:55:02 Cyst of ovary 98585129 N83.209 [id number] [facility] [address] [address] 10/31/2021 09:30:18 10/31/2021 10:08:54 Gynecologic examination 22501167 Z01.419 Z11.51 Z11.3 Z11.8 Take Calcium with [...] which will also serve as IUD check. [id number] Gabo Sousa MD [facility] [address] [address] 12/13/2021 09:24:57 12/13/2021 13:43:42 Postcoital bleeding 07863826 N93.0 this patient is a 41-year-ol d [...] was counseling . Abnormal u terine bleeding 2452733833 9100 N93.9 [id number] Gabo Sousa MD [facility] [address],[place] [address] 12/13/2021 09:25:29 12/13/2021 11:40:13 Postcoital bleeding 25240151 N93.0 this patient is a 41-year-ol d [...] ce. More than 50% was counseling . [id number] Gabo Sousa MD [facility] [address] [address] 03/16/2022 09:33:42 03/16/2022 10:08:30 Cyst of left ovary 7011125908 [id number] N83.292 T83.39XA [id number] Gabo Sousa MD [facility] [address],[place] [address] 03/16/2022 10:06:12 03/16/2022 11:07:09 Hemorrhagic cyst of ovary 430724052 N83.209 42-year-ol d female with hemorrhagi c [...] mid endometriu m. It is normal basically. [id number] Gabo Sousa MD [facility] [address],[place] [address] 05/25/2022 09:38:00 05/25/2022 15:16:38 Postoperative care 248642678 Z48.89 42-year-ol d female presents for follow-up on pelvic ultrasound . She has resolution of her hemorrhagi c cyst and the hyperechoi c nodule is stable and small. We can disregard that. We agree to follow symptoms. We will care for her as clinically indicated for any forthcomin g problems. [id number] Gabo Sousa MD [facility] [address],[place] [address] 05/25/2022 09:38:11 05/25/2022 10:06:05 Cyst of left ovary 6325841191 [id number] N83.292 [id number] [facility] [address],[place] [address] 11/02/2022 09:34:25 11/02/2022 10:13:22 Gynecologic examination 49935529 Z11.51 Z11.8 Z11.3 Take Calcium with Vitamin [...] c Screen discussedC olon Screen naDexa Screen naRfreeman [facility] PCPMammo ordered Screening mammography 24 081464 Z12.31 [id number] Светлана Gasca [facility] [address],[place] [address] 11/23/2022 15:34:13 11/23/2022 17:07:56 Screening procedure 83433466 Z13.9 Atypical s quamous cells of undetermined significance on cervical Papanicolaou smear 932778508 R87.610 See procedure notes.Post -procedure instructio ns reviewed with understand ing verbalized .Will contact with results & next steps in plan of care. ASCUS positive with neg HPV 2yrs in a row.Exam appears neg but did ecc to ensure we are not missing anything.Darlene cerna discussed ASCUS with neg HPV pap smears. Will update on results. [id number] Светлана Gasca [facility] [address],[place] [address] 11/29/2022 16:54:57 12/01/2022 03:59:26 Low grade squamous intraepithelial lesion on cervical Papanicolaou smear 6719652313 9105 R87.612 ECC resulted in LGSIL from a ASCUS w/NEG HPV pap smear . Counseled on Pap/HPV guidelines /Testing/R esults with understand ing verbalized .All questions answered to patient satisfacti on. Booklet & additional resources regarding pap smear/HPV/ Pap results given. [email or web address] ov/types/c ervical/un derstandin g-abnormal -hpv-and-p ap-test-re sults/unde rstanding- cervical-c hanges.pdf We agreed to R/P pap/hpv/EC C x 6mos at this time. Understand ing verbalized . Total time of tele-visit was approx 20 mins with >50% consisting of counseling , education of patient's plan of care. [id number] [facility] [address] [address] 06/12/2023 09:20:25 06/12/2023 12:45:58 Human papillomavirus deoxyribonucleic acid detected, high risk on cervical specimen 151498243 R87.810 Due today for 6mos repeat pap/hpv/ec c.Testing collected and sentWill update on results. Time spent in visit is a total of 15 mins with at least 50% of visit consisting of counseling and review of plan of care. [id number] Gabo Sousa MD [facility] [address] [address] 12/13/2023 09:19:46 12/13/2023 10:13:59 Gynecologic examination 05802752 Z01.419 Annual gynecologi tessa exam performed. Patient [...] STI testing - requested Screening mammography 24 169275 Z12.31 Contracept ion care management 290590351 Z30.9 Pt happy with copper IUD. Strings intact/vis ible. Venereal d isease screening 690472738 Z11.3 Pt requested STI testing for GC/CT.Disc ussed the various types of STDs, related symptoms and the potential consequenc es (including effects on fertility) of STD infections . Reviewed ways to limit exposure and prevention techniques . Elevated blood-pressure reading without diagnosis of hypertension 517875776 R03.0 Discussed elevated BP readings today.Alicia ent [...] None Recorded Advance Directives Directive N: Payers Insurance Date Sequence Insurance Name Policy Number Policy Adams Covered Member ID Adams Member ID Guarantor Name 10/31/2021 1 [id number] Trish M Guess [id number] Trish M Guess 10/14/2019 2 [employer] Felix Guess [id number] Trish M Guess 12/18/2023 1 [place] [id number] Trish M Guess [id number] Trish M Guess 06/15/2020 2 [employer] Felix Guess [id number] Trish M Guess 03/16/2022 2 [id number] Felix Nieto [id number] Trish Nieto 12/18/2023 2 [facility] [id number] Felix Nieto [id number] Trish Nieto Notes Date Note Type Note Provider Name and Address Organization Details Recorded Time 11/03/19 23 text/ht ml Annual GYNReported by PatientHistoryFor history, patient reportsno gynecologic complaints.Genitourinary symptomsFor menstrual cycle, patient reportsnormal menses. For urinary symptoms, patient reportsno hematuriaandno incontinence. For vulva, patient reportsno genital lesion. For vagina, patient reportsnormal vaginal discharge.Breast symptomsFor breast, patient reportsno breast pain,no breast lump, andno nipple discharge.ContraceptionFor current contraception, patient reportssatisfied with current contraceptionandintrauterine device (iud).Endocrine symptomsFor sexual complaints, patient reportsno sexual complaints,no pain during intercourse, andnormal libido. For menopausal symptoms, patient reportsno menopausal symptomsandnormal vaginal lubrication.Psychological symptomsFor psychological symptoms, patient reportsno depression,no anxiety, andno pmdd.Preventative measuresFor preventive measures, patient reportsencourage self breast examination,encourage regular exercise,encourage no tobacco use,encourage regular mammograms starting age 40,followed with yearly pap smears, andneeds to schedule mammogram. [facility]ветлана [facility] [address], [place], [address], [facility] 11/02/2022 10:01:02 11/24/19 23 text/ht ml ROS as noted in the HPI Here today for colposcopy for Pap ASCUS with neg HPV x . [facility]вет[facility]ана [facility] [address], [place], [address], [facility] 11/23/2022 17:05:38 11/30/19 23 text/ht ml ROS as noted in the HPI Follow up for discussion of colposcopy results & next steps in POC Светлана [facility]asca [facility] [address], [place], [address], [facility] 11/30/2022 12:35:37 06/12/19 24 text/ht ml ROS as noted in the HPI Here today for q6mos pap/hpv/ecc. Светлана Gasca, [facility] [address], [place], [address], [facility] 06/12/2023 12:03:33 12/13/19 24 text/ht ml Annual GYNReported by PatientHistoryFor history, patient reportsno gynecologic complaints.Genitourinary symptomsFor menstrual cycle, patient reportsnormal menses. For urinary symptoms, patient reportsno hematuriaandno incontinence. For vulva, patient reportsno genital lesion. For vagina, patient reportsnormal vaginal discharge.Breast symptomsFor breast, patient reportsno breast pain,no breast lump, andno nipple discharge.Endocrine symptomsFor sexual complaints, patient reportsno sexual complaints,no pain during intercourse, andnormal libido. For menopausal symptoms, patient reportsno menopausal symptomsandnormal vaginal lubrication.Psychological symptomsFor psychological symptoms, patient reportsno depression,no anxiety, andno pmdd.Preventative measuresFor preventive measures, patient reportsencourage self breast examination,encourage regular exercise,encourage no tobacco use,encourage regular mammograms starting age 40,followed with yearly pap smears,history of abnormal pap smear/cervical dysplasia, andneeds to schedule mammogram. Patient presents for annual well woman exam. Patient denies concerns today. UBALDO DURON NP [address], [place], [address], [facility] 12/13/2023 10:12:57 OBGyn Episode Ob Episode Information Episode Created Date Number of Fetuses Patient Bloodtype Patient rh Status Prepregnancy Weight lbs Domestic Partner Domestic Partner Phone Father Name Engine Designer Status 09/05/19 20 1 CLOSED Fetus Data [...] Domestic Partner Domestic Partner Phone Father Name Engine Designer Status 09/05/19 20 1 CLOSED Fetus Data [...]
--- OUTSIDE RECORDS SUMMARY | 2024-08-28 09:02 | XMS_ITS | Referral Summary ---
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
--- OUTSIDE RECORDS SUMMARY | 2024-08-28 09:02 | XMS_ITS | Continuity of Care Document ---
Author Organization [facility] Address [address] [place] [address] Phone Care Team Providers Care Wrapper Operator Name Role Phone Ornelas OD, Satya Unavailable Unavailable Advance Directives Directive Yes / No Effective Date File Name No Information Encounters Encounter Description Practice Location Reason(s) For Visit Diagnoses Date Provider Providers Copied on Encounter formerly [facility], [address], [place], [place], [id number], [place] tel:[phone] [facility] No Information 2-200 6 Ornelas OD Satya. [address], [place], [address], [place]. tel:[phone] Family History Family Member Type Diagnosis Age At Onset No Information Payers Payer name Insurance type Covered republican ID Michael subramanian(s) [facility] CI [id number] Social History Type Description Quantity Date Captured [...]
--- OUTSIDE RECORDS SUMMARY | 2024-08-28 09:02 | XMS_ITS | Clinical Summary ---
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
[2024-08-28 13:11] LABS: Alanine Aminotransferase 21 U/L (6-35); Albumin Level 4.8 g/dL (3.5-5.1); Alkaline Phosphatase 70 U/L (38-126); Anion Gap 8 mmol/L (4-12); Aspartate Amino Transferase 51 U/L (14-36); Bilirubin,Total 0.6 mg/dL (0.2-1.3); Blood Urea Nitrogen 20 mg/dL (7-17); Calcium 9.6 mg/dL (8.4-10.2); Carbon Dioxide 26 mmol/L (22-30); Chloride 102 mmol/L (98-107); Estimated Glomerular Filt Rate > 60; Glucose 87 mg/dL (65-110); Potassium 4.0 mmol/L (3.4-5.0); Sodium 136 mmol/L (137-145); Total Protein 8.2 g/dL (6.3-8.2)
[2024-08-28 13:15] LABS: Iron 111 ug/dL (37-170)
[2024-08-28 13:40] LABS: Percent Iron Saturation 35 % (20-50)
[2024-08-28 13:46] LABS: Hepatitis B Surface Antigen Negative (Negative); Thyroid Stimulating Hormone 1.940 uIU/mL (0.465-4.680)
[2024-08-28 13:49] LABS: HIV 1/2 Ab P24 Ag Result Negative (Negative)
[2024-08-29 15:09] LABS: Deamidated Gliadin Abs, IgA 3 units (0-19); Deamidated Gliadin Abs, IgG 2 units (0-19); Immunoglobulin A, Qn 109 mg/dL (87-352)
== END 2024-08-28 08:58 | disposition home or self-care (01) ==
LOC: ANHGOSHLAB 08:58
PROVIDERS: PCP Internal Medicine; Visit Provider Nurse Practitioner
DX: R74.01 Elevation of levels of liver transaminase levels (principal)
CPT/HCPCS: 36415; 80053; 82784; 83540; 83550; 84443; 86231; 86258; 86703; 86803; 87340; G0432

== ENCOUNTER 2025-01-27 02:49 | Day surgery (SDC) | payer OTHER, SELFPAY ==
[2025-01-07 10:37] VITALS: BMI 28.3
--- OUTSIDE RECORDS SUMMARY | 2025-01-27 02:55 | XMS_ITS | Clinical Summary ---
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
--- OUTSIDE RECORDS SUMMARY | 2025-01-27 02:55 | XMS_ITS | Continuity of Care Document ---
Author Organization [facility] Address [address] [place] [address] [place] [address] Care Team Providers Care Bead Picker Name Role Phone MICHELLE TRISTAN Primary Care Provider [phone] Assessment Encounter Date Assessment Date Assessment LastModified by Organization Details LastModified Time 12/16/2024 12/16/2024 Annual gynecological exam performed. Patient will come back in a year unless there are new symptoms. [email or web address] Not available 12/16/2024 09:05:18 Plan of Treatment Reminders Order Date Submit Date Provider Last Modified By Organization Details Last Modified Time Details Appointments [facility] 2025 08:00A Jean Pierre DURON NP Not available Not available Not available Lab pap, IG + HR HPV - HPV regardles s but if HPV is positive need subtyping 16,18/[address]/gc/tri ch 2024 025 [facility] (Lab), [address], [place], [address], 12/22/2024 15:27:35 Referral None recorded. Procedures None recorded. Surgeries None recorded. Imaging MAMMO, screening , digital, bilateral 2024 025 [facility], [address], [address], [place], [address], 12/23/2024 04:02:32 Medication Orders None recorded. Patient TargetsNo targets recorded. Patient InstructionsNo instructions recorded. Reason for Referral None Reported. Results Created Date Observation Date Name Description Value Unit Range Abnormal Flag Note LastModifiedBy Organization Detail LastModifiedTime 12/17/19 25 12/16/2024 IMAGE GUIDE D PAP AND HPV REGAR DLESS image guided Pap, HPV regardless of Pap result SEE RESULT S BELOW CASE REPOR T: Cytol ogy Gynec ologi tessa Repor t Case: [id number] Autho sree abdi Provi coco: Dermo dy, Ubaldo , ANP, CHIEF COMMUNICATIONS OFFICER Colle cted: 12/16 1028 Order ing Locat ion: [place] Patho log[facility] Recei nestor: 12/17 0947 First Scree n: Orlando noriega, [place] Patho logis t: Rosamaria Cadena MD Speci men: Daniel jolly Pap - Image d, Cervi x STATE MENT OF ADEQU ACY: Satis facto ry for evalu ation Trans forma tion zone compo nent prese nt ----- ----- ----- ----- ----- ----- ----- ----- ----- ----- ----- ----- ----- ----- ----- ----- ----- ---- FINAL DIAGN OSIS: Negat ursula for Intra epith elial Lesio n or Juan christine (NIL) . Infla mmato ry cell salguero es (incl udes typic al repjack r). Elect raissa mccartney by Rosamaria Cadena MD on 12/22 at 1421 PROJECT BUYER ----- ----- ----- ----- ----- ----- ----- [...] Statu s: LMP (if appli cable ): 12/01 Clini tessa Histo ry/Pr eviou s Pap: [...] is recom isabella d, as clini juni warrlelo nted. Not Available [facility] (Lab) [address] [facility], [place], [address], 12/22/2024 15:27:35 12/17/19 25 12/16/2024 CT/GC AND TRICH OMONA S VAGIN MILAGROS (RRNA ), THINP REP VIAL CT/GC and trichomonas vaginalis (rrna), thinprep SEE RESULT S BELOW negati ve CHLAM YDIA TRACH OMATI S, PCR: Negat ursula NEISS ERIA GONOR RHOEA E, PCR: Negat ursula TRICH OMONA S VAGIN MILAGROS RIBOS OMAL RNA (RRNA ): Negat ursula Not Available [facility] (Lab) [address], [place], [address], 12/22/2024 15:27:36 Result Notes None recorded. Problems Name Problem SNOMED Code Status Onset Date Resolution Date Notes Provider Name and Address Organization Details Recorded Time Pregnanc y test positive [id number] Completed 201109/06/2020 Pregnanc y examinat ion or test, positive result;R ecorded Elsewher e: No Locat ion: [facility] S ource: EHR Flame Cutter neelima: N Madelinti ce ID: 0001 Jonny lable Time: 11:00:00 AM Eneida [facility] 17:06:55 Screenin g for malignan t neoplasm of cervix Completed 201109/06/2020 Screenin g for malignan t neoplasm s of the cervix;R ecorded Elsewher e: No Locat ion: [facility] S ource: EHR Flame Cutter neelima: N Madelinti ce ID: 0001 Jonny lable Time: 11:00:00 AM Eneida [facility] 1 17:07:02 Lymphade nopathy [id number] Completed 201109/06/2020 Enlargem ent of lymph nodes;Re corded Elsewher e: No Locat ion: [facility] S ource: EHR Flame Cutter neelima: N Practi ce ID: 0001 Jonny lable Time: 11:00:00 AM Eneida [facility] 1 17:06:42 Routine antenata l care Completed 201109/06/2020 Supervis ion of other normal pregnanc y;Record ed Elsewher e: No Locat ion: [facility] S ource: EHR Flame Cutter neelima: N Practi ce ID: 0001 Jonny lable Time: 11:00:00 AM [facility] 1 17:07:00 Amenorrh ea [id number] Completed 201106/29/2020 Absence of menstrua tion;Rec orded Elsewher e: No Locat ion: [facility] S ource: EHR Flame Cutter neelima: N Madelinti ce ID: 0001 Jonny lable Time: 11:00:00 AM Eli hyman [facility] 1 10:02:33 Adult health examinat ion Completed 201106/29/2020 Routine Medical Exam;Rec orded Elsewher e: No Locat ion: [facility] S ource: EHR Flame Cutter neelima: N Madelinti ce ID: 0001 Jonny lable Time: 02:45:00 PM Eli hyman, [facility] 10:02:31 Hypereme sis gravidar um with metaboli c disturba nce - not delivere d [id number] Completed 201109/06/2020 Hypereme sis gravidar um with metaboli c disturba nce, antepart um;Recor ded Elsewher e: No Locat ion: [facility] S ource: EHR Flame Cutter neelima: N Madelinti ce ID: 0001 Jonny lable Time: 02:45:00 PM [facility] 17:06:30 Mild hypereme sis-not delivere d [id number] Completed 201109/06/2020 Mild hypereme sis gravidar um, antepart um;Recor ded Elsewher e: No Locat ion: [facility] S ource: EHR Flame Cutter neelima: N Madelinti ce ID: 0001 Jonny lable Time: 03:00:00 PM Eneida hyman, [facility] 17:06:45 anatomy study Completed 201109/06/2020 [facility];Yancy martineztice ID: 0001 Eneida Antunez [facility], [facility] 17:06:27 Placenta previa with hemorrha ge - not delivere d [id number] Completed 201109/06/2020 Hemorrha ge from placenta previa, antepart um;Recor ded Elsewher e: No Locat ion: [facility] S ource: EHR Flame Cutter neelima: N Practi ce ID: 0001 Jonny lable Time: 08:15:00 AM Eneida Antunez [facility], [facility] 17:06:50 Primigra carter [id number] Completed 201109/06/2020 Supervis ion of normal first pregnanc y;Record ed Elsewher e: No Locat ion: [facility] S ource: EHR Flame Cutter neelima: N Madelinti ce ID: 0001 Jonny lable Time: 02:30:00 PM Eneida Antunez [facility], [facility] 17:06:56 malforma tion of central nervous system affectin g obstetri tessa care [id number] Completed 201109/06/2020 Central nervous system malforma tion in fetus, antepart um;Recor ded Elsewher e: No Locat ion: [facility] S ource: EHR Flame Cutter neelima: N Madelinti ce ID: 0001 Jonny lable Time: 02:00:00 PM Eneida hyman, [facility] 17:06:20 Complica tion related to pregnanc y Completed 201109/06/2020 Unspecif ied antepart um complica tion;Pra ctice ID: 0001 Eneida Antunez [facility], [facility] 17:06:22 Twin pregnanc y with antenata l problem [id number] Completed 201109/06/2020 Twin pregnanc y, antepart um conditio n or complica tion;Pra ctice ID: 0001 Eneida Antunez boogie, [facility] 17:07:19 Delivery normal [id number] Completed 201106/29/2020 Normal delivery ;Practic e ID: 0001 Eli Alford [facility] 10:02:47 Single live from singleto n pregnanc y [id number] Completed 201109/06/2020 Mother with single liveborn ;Practic e ID: 0001 Eneida Antunez [facility] 17:07:06 Postpart um care Completed 201109/06/2020 Routine postpart um follow-u p;Record ed Elsewher e: No Locat ion: [facility] S ource: EHR Flame Cutter neelima: N Madelinti ce ID: 0001 Jonny lable Time: 09:15:00 AM Eneida Antunez [facility] 17:06:51 Insertio n of intraute rine contrace ptive device Completed 201209/06/2020 INSERTIO N OF IUD;Thony rded Elsewher e: No [facility] Flame Cutter neelima: N Madelinti ce ID: 0001 Jonny lable Time: 01:15:00 PM Eneida Antunez [facility] 17:06:35 Family planning surveill ance Completed 201209/06/2020 Contrace ptive surveill ance, unspecif ied;Thony rded Elsewher e: No [facility]: EHR Flame Cutter neelima: N Madelinti ce ID: 0001 Jonny lable Time: 11:00:00 AM Eneida Antunez [facility] 17:06:25 Irregula r intermen strual bleeding [id number] Completed 201209/06/2020 Metrorrh agia;Rec orded Elsewher e: No Locat ion: [facility] S ource: EHR Flame Cutter neleima: N Practi ce ID: 0001 Jonny lable Time: 11:00:00 AM Eneida hyman, [facility] 17:06:37 Speciali zed medical examinat ion Completed 201209/06/2020 Gynecolo gical Examinat ion;Thony rded Elsewher e: No Locat ion: [facility] S ource: EHR Flame Cutter neelima: N Madelinti ce ID: 0001 Jonny lable Time: 08:30:00 AM Eneida Antunez [facility], [facility] 17:07:12 Venereal disease screenin g Completed 201409/06/2020 Screenin g examinat ion for venereal disease; Recorded Elsewher e: No Locat ion: [facility] S ource: EHR Flame Cutter neelima: N Madelinti ce ID: 0001 Jonny lable Time: 08:30:00 AM Eneida Antunez [facility], [facility] 17:07:20 Malaise and fatigue [id number] Completed 201409/06/2020 Fatigue / Malaise; Recorded Elsewher e: No Locat ion: [facility] S ource: EHR Flame Cutter neelima: N Madelinti ce ID: 0001 Jonny lable Time: 08:30:00 AM Eneida Antunez [facility], [facility] 17:06:44 Speciali marina medical examinat ion Completed 201409/06/2020 Other specifie d chlamydi al diseases ;Recorde d Elsewher e: No Locat ion: [facility] S ource: EHR Flame Cutter neelima: N Practi ce ID: 0001 Jonny lable Time: 08:30:00 AM Eneida Antunez [facility], [facility] 17:07:13 Obesity [id number] Completed 201409/06/2020 Obesity; Recorded Elsewher e: No Locat ion: [facility] S ource: EHR Flame Cutter neelima: N Madelinti ce ID: 0001 Jonny lable Time: 08:30:00 AM Eneida Antunez [facility] 17:06:47 Screenin g for malignan t neoplasm of rectum Completed 201409/06/2020 Screenin g for malignan t neoplasm s of the rectum;P ractice ID: 0001 Eneida hyman [facility] 17:07:04 Pregnanc y test negative [id number] Completed 201409/06/2020 Encounte r for pregnanc y test, result negative ;Recorde d Elsewher e: No Locat ion: [facility] S ource: EHR Flame Cutter neelima: N Madelinti ce ID: 0001 Jonny lable Time: 08:30:00 AM Eneida hyman [facility] 17:06:53 Infectio n screenin g Completed 201409/06/2020 Encounte r for screenin g for oth infec/pa rastc diseases ;Recorde d Elsewher e: No Locat ion: [facility] Madelinti ce ID: 0001 Jonny lable Time: 08:30:00 AM Eneida Antunez [facility] 17:06:34 Syphilis test finding [id number] Completed 201409/06/2020 Encntr screen for infectio ns w sexl mode of transmis s;Record ed Elsewher e: No [facility] S ource: EHR Flame Cutter neelima: N Practi ce ID: 0001 Jonny lable Time: 08:30:00 AM Eneida Antunez [facility] 17:07:16 Elevated blood-pr essure reading without diagnosi s of hyperten magen [id number] Completed 201509/06/2020 Elevated blood-pr essure reading, without diagnosi s of hyperten magen;Rec orded Elsewher e: No Locat ion: [facility] S ource: EHR Flame Cutter neelima: N Practi ce ID: 0001 Jonny lable Time: 04:45:00 PM Eneida hyman [facility] 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 17:07:10 Body mass index 30+ - obesity [id number] Completed 201506/29/2020 Body mass index (BMI) 31.0-31. 9, adult;Re corded Elsewher e: No Locat ion: [facility] S ource: EHR Flame Cutter neelima: N Practi ce ID: 0001 Jonny lable Time: 04:45:00 PM Eli hyman [facility] 10:02:[address] Concept Completed 201609/06/2020 Encntr for general adult medical exam w/o abnormal findings ;Recorde d Elsewher e: No Locat ion: [facility] S ource: EHR Flame Cutter neelima: N Practi ce ID: 0001 Jonny lable Time: 09:30:00 AM Eneida Antunez [facility] 17:07:07 Steriliz ation procedur e Completed 201609/06/2020 Encounte r for steriliz ation;Re corded Elsewher e: No Locat ion: [facility] S ource: EHR Flame Cutter neelima: N Practi ce ID: 0001 Jonny lable Time: 09:00:00 AM Eneida Antunez [facility] 08/02/202 1 17:07:15 Removal of intraute rine device Completed 201609/06/2020 Encounte r for removal of intraute rine contrace ptive device;R ecorded Elsewher e: No Locat ion: [facility] S ource: EHR Flame Cutter neelima: N Practi ce ID: 0001 Jonny lable Time: 08:45:00 AM Eneida Antunez [facility] 1 17:06:58 Procedur e by method Completed 201606/29/2020 Encounte r for oth general cnsl and advice on contrace ption;Pr actice ID: 0001 Eli Alford [facility] 10:02:54 Contrace ptive sheath status [id number] Completed 201706/29/2020 Encounte r for initial prescrip tion of other contrace ptives;R ecorded Elsewher e: No Locat ion: [facility] S ource: EHR Flame Cutter neelima: N Practi ce ID: 0001 Jonny lable Time: 01:00:00 PM Eli Alford [facility] 1 10:02:43 Hyperten sive disorder [id number] Completed 201709/06/2020 HTN;Thony rded Elsewher e: No Locat ion: [facility] S ource: EHR Flame Cutter neelima: N Practi ce ID: 0001 Jonny lable Time: 08:30:00 AM Eneida Antunez [facility] 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 1 17:07:09 Atypical squamous cells of undeterm ined signific ance on cervical Papanico laou smear [id number] Completed 201809/06/2020 Atyp squam cell of undet signfc cyto smr crvx (ASC-US) ;Recorde d Elsewher e: No Locat ion: [facility] S ource: EHR Flame Cutter neelima: N Madelinti ce ID: 0001 Jonny lable Time: 08:15:00 AM Eneida Antunez [facility] 1 17:06:19 Low grade squamous intraepi thelial lesion on cervical Papanico laou smear [id number] 105 Completed 201809/06/2020 Low grade intrepit h lesion cyto smr crvx (LGSIL); Recorded Elsewher e: No Locat ion: [facility] S ource: EHR Flame Cutter neelima: Patel Yusufti ce ID: 0001 Jonny lable Time: 08:15:00 AM Eneida Antunez [facility] 1 17:06:39 Abdomina l bloating [id number] Completed 201806/29/2020 Bloating ;Recorde d Elsewher e: No Locat ion: [facility] S ource: EHR Flame Cutter neelima: N Madelinti ce ID: 0001 Jonny lable Time: 01:30:00 PM Eli [facility] 1 10:02:29 Evaluati on finding Completed 201806/29/2020 Unsp abnormal cytolog findings in specmn from cervix uteri;Re corded Elsewher e: No Locat ion: [facility] S ource: EHR Flame Cutter neelima: Patel Yusufti ce ID: 0001 Jonny lable Time: 01:30:00 PM Eliamalia Alford [facility] 1 10:02:57 Lesion of ovary Completed 201806/29/2020 Other ovarian cyst, unspecif ied side;Rec orded Elsewher e: No Locat ion: [facility] S ource: EHR Flame Cutter neelima: Patel Yusufti ce ID: 0001 Jonny lable Time: 04:11:41 PM Eli [facility] 1 10:02:52 Human papillom avirus deoxyrib onucleic acid detected , high risk on cervical specimen [id number] Completed 201809/06/2020 Cervical high risk HPV DNA test positive ;Recorde d Elsewher e: No Locat ion: [facility] S ource: EHR Flame Cutter neelima: N Practi ce ID: 0001 Jonny lable Time: 04:11:41 PM Eneida Antunez [facility] 1 17:06:28 Pelvic and perineal pain [id number] Completed 201809/06/2020 Pelvic and perineal pain;Rec orded Elsewher e: No Locat ion: [facility] S ource: EHR Flame Cutter neelima: N Practi ce ID: 0001 Jonny lable Time: 09:45:00 AM Eneida Antunez [facility] 1 17:06:48 Lesion of ovary Completed 201806/29/2020 Other ovarian cyst, left side;Pra ctice ID: 0001 Eli Alford [facility] 10:02:50 Clinical finding Completed 201906/29/2020 Abnormal findings on dx imaging of oth body structur es;Recor ded Elsewher e: No Locat ion: [facility] S ource: EHR Flame Cutter neelima: N Practi ce ID: 0001 Jonny lable Time: 08:15:00 AM [facility] 10:02:41 Problem Notes None recorded. Procedures Surgical History Date Name Laterality Status Provider Name and Address Organization Details Recorded Time 12/13/19 24 Date of Last Pap Smear completed UBALDO DURON NP [address], [place], [address], [facility] 12/16/2024 09:29:29 11/24/19 Colposcopy completed FAUSTO Tomlin- [address], [place], [address], [facility] 11/23/2022 16:58:09 11/24/19 23 Colposcopy completed Adina Powell [facility] 11/23/2022 15:51:19 10/14/19 20 IUD Insertion completed Gabo Sousa MD [address], [place], [address], [facility] 10/14/2019 17:47:10 02/05/18 97 LEEP completed Eli Alford [facility] 06/28/2020 14:27:13 02/05/18 84 plastic repair procedure completed Mary Jane Vargas [facility] 12/13/2021 10:06:01 extraction of wisdom tooth completed Janis Dodson [facility] 08/29/2019 15:10:46 [facility] 08/29/2019 15:11:04 Imaging Results None recorded. [...] Not available Not available Not available 08/29/2019 58348 [id number] SNOMED Janis Dodson null, [facility] 0 15:09:06 Medications Name Sig Start Date Stop Date Status Note LastModified by Organization Details LastModified Time amoxicill in 500 mg capsule take 1 capsule (500MG) by oral route every 8 hours for 10 days 11/24 completed Prescrib ed Elsewher e: No Locat ion: [facility] M odify By: tgingric h Encoun ter DateTime : 11/16/19 12 08:30:00 AM Not Available Not Available Not Available Mirena 21 mcg/24 hr (up to 8 years) 52 mg intrauter ine device 01/22 completed Prescrib ed Elsewher e: Yes Loca tion: [facility] odify By: gabo Mary luanaunter DateTime : 08/29/19 17 09:00:00 AM Not Available Not Available Not Available tretinoin 0.025 % topical cream APPLY PEA SIZED AMOUNT TOPICALL Y TO FACE EVERY NIGHT AT BEDTIME active Not Available Not Available No t Available clindamyc in 1 %-benzoyl peroxide 5 % topical gel 09/07 completed Not Available Not Available Not Available Reglan 10 mg tablet take 1 tablet (10MG) by oral route 4 times every day 30 minutes before meals and at bedtime 02/13 completed Prescrib ed Elsewher e: No Locat ion: [facility] odify By: odilia felipe DateTime : 04/07/19 12 02:45:00 PM Not Available Not Available Not Available Multi-Vit silver HP/Minera ls capsule 03/31 completed Prescrib ed Elsewher e: Yes Loca tion: [facility] odify By: david Encounte r DateTime : 02/07/19 19 08:15:00 AM Not Available Not Available Not Available Metrogel Vaginal 0.75 % (37.5 mg/5 gram) insert 1 applicat orful by vaginal route every day at bedtime 07/27 completed Prescrib ed Elsewher e: No Locat ion: [facility] odify By: david Encounte r DateTime : 01/06/20 15 08:30:00 AM Not Available Not Available Not Available Vitamin D2 1,250 mcg (50,000 unit) capsule take 1 capsule by oral route every week for 8 weeks. 08/09 completed Prescrib ed Elsewher e: No Locat ion: Conrad [facility] odify By: mariza craftunter DateTime : 01/08/20 [...] e: No Locat ion: [facility] odify By: nicolle Gallardo r DateTime : 06/13/19 13 08:30:00 AM Not Available Not Available Not Available amoxicill in 875 mg-potass ium clavulana te 125 mg tablet TAKE 1 TABLET BY MOUTH TWICE DAILY 12/12 completed Not Available Not Available Not Available Vitamin C 500 mg capsule,e xtended release 07/21 completed Prescrib ed Elsewher e: Yes Loca tion: [facility] odify By: nicolle Gallardo r DateTime : 02/13/19 13 01:15:00 PM Not Available Not Available Not Available Vitamins and Minerals tablet 01/05 completed Prescrib ed Elsewher e: Yes Loca tion: [facility] odify By: bchappel anant Kaur ter DateTime : 02/13/19 13 01:15:00 PM Not Available Not Available Not Available Alta 0.35 mg tablet take 1 tablet by oral route every day 02/07 completed Prescrib ed Elsewher e: No Locat ion: [facility] odify By: giovanni craftunter DateTime : 06/06/19 18 01:00:00 PM Not Available Not Available Not Available multivita min 11/02 completed Not Available Not Available Not Available B-12 Plus 5,000 mcg-100 mcg sublingua l tablet 07/21 completed Prescrib ed Elsewher e: Yes Loca tion: [facility] odify By: nicolle Gallardo r DateTime : 02/13/19 13 01:15:00 PM Not Available Not Available Not Available Probiotic 10 billion cell capsule 03/31 completed Prescrib ed Elsewher e: Yes Loca tion: [facility] odify By: david Gallardo r DateTime : 02/07/19 19 08:15:00 AM Not Available Not Available Not Available Triveen-D uo DHA 29 mg-1 mg-400 mg oral pack take 2 by Oral route every day for 30 days 04/28 completed Prescrib ed Elsewher e: No Locat ion: [facility] odify By: azul ortiz DateTime : 03/31/19 12 11:00:00 AM Not Available Not Available Not Available Fish Oil 100 mg-160 mg-1,000 mg capsule 07/21 completed Prescrib ed Elsewher e: Yes Loca tion: [facility] odify By: nicolle christensen DateTime : 02/13/19 13 01:15:00 PM Not Available Not Available Not Available Flucelvax Quad 4604-8711 (PF) 60 mcg (15 mcg x 4)/0.5 mL IM syringe 09/06 completed Not Available Not Available Not Available Afluria Qd 2019- (36 mos up)(PF)60 mcg (15 mcg x4)/0.5 mL IM syringe ADM 0.5ML IM UTD 09/06 completed Not Available Not Available Not Available Sutab 1.479-0.1 88-0.225 gram tablet FOLLOW PACKAGE DIRECTIO NS 12/16 completed Not Available Not Available Not Available Vitals Date Recorded Body height Body mass index (BMI) Body weight Systolic And Diastolic Provider Name and Address Organization Details Last Updated DateTime 12/16/2024 160.66 cm 29.3 kg/m2 55214.49 g 142/90 mm[Hg] Lizzette Trimbleton [facility] 12/16/2024 09:12:37 Social History Question Answer Notes LastModified by Organizat ion Details LastModified Time Tobacco Smoking Status Never Smoker [email or web address] 09/06/2020 17:05:21 Do You Have An [...] Or The Highest Degree You Have Received? [id number] Information not available 06/29/2020 Are There Any [...] Have Difficulty Walking Or Climbing Stairs? No [email or web address] Information not available 12/13/2021 Sex: Unknown Functional Status Question Answer Note LastModified by Organizat ion Details LastModified Time Do you use any illicit or recreational drugs? No Information not available 06/29/2020 What is your level of alcohol consumption? Occasional [id number] Information not available 12/09/2019 Are you able to walk independently without assistance or assistive devices? [email or web address] Information not available 06/29/2020 Are you able to care for yourself independently? 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 No [email or web address] Information not available 12/13/2021 What is your exercise level? Moderate Information not available 09/06/2020 Mental Status Question Answer Note LastModified by Organization D etails LastModified Time Do you feel stressed (tense, restless, nervous, or anxious, or unable to sleep at night)? [id number] Information not available 09/06/2020 Family History Relationship Description Onset Age of this Age Resolved Age Notes LastModified by Organization Details LastModified Time Maternal Grandmother Aneurysm [email or web address] Not available 06/29 09:24:53 Father Hypertensive disorder [email or web address] Not available 2019 15:08:14 Father Malignant neoplasm of lung [email or web address] Not available 2023 09:29:01 Mother Cyst of [...] N Thrombophilias N Gynecological History Statement/Question Response Date of Last Mammogram Flow Moderate Date of LMP 12/01/2024 N Was last menstrual period normal Y STIs/STDs Yes Date of Last Colonoscopy IUD Abnormal Pap Yes On BCP's at Conception? N HPV Vaccine Y Colposcopy 11/23/2022 Duration of Flow (days) 6 Current Control Method IUD 12 Age at First Child 26 Are cycles usually normal Y Sexually Active? Y Menses Monthly Y Date of DEXA bone scan Date of Last Pap Smear 12/13/2023 Sexual Problems? N LMP Definite N Obstetrics History GPAL:G 2 P 0 0 0 2 Type Value Living 2 Total 2 Past Encounters Encounter ID Performer Location Encounter Start Date Encounter Closed Date Diagnosis/Indication Diagnosis SNOMED-CT Code Diagnosis ICD10 Code Diagnosis IMO Codes Diagnosis Note [id number] UBALDO DURON, ALMA [place] [address] [address] 12/16/2024 09:01:06 12/16/2024 09:49:24 Gynecologic examination 04198374 Z01.419 Annual gynecologi tessa exam performed. Patient [...] n/a Pap smear- pap w/ HPV collected laboratory evaluation - PCP STI testing - requested Paragard IUD expires 10/13/2029 Screening mammography 24 863251 Z12.31 Venereal d isease screening 920717195 Z11.3 Pt requested STI testing for GC/CT/tric h.Discusse d the various types of STDs, related symptoms and the potential consequenc es (including effects on fertility) of STD infections . Reviewed ways to limit exposure and prevention techniques . Health Concerns Section Related Observation LastModified by Organization Detai ls LastModified Time None Recorded Concern Status LastModified by Organization Details LastModified Time None Recorded Payers Encounter Date Sequence Insurance Name Policy Number Policy Adams Covered Member ID Adams Member ID Guarantor Name 12/16/2024 1 [employer] [id number] Trish Greenfield Guess [id number] Trish Nieto 12/16/2024 2 [facility] [id number] Felix Nieto [id number] Trish Nieto Notes Date Note Type Note Provider Name and Address Organization Details Recorded Time 12/17/19 25 text/ht ml Annual GYNReported by PatientHistoryFor history, [...] self breast examination,encourage regular exercise,encourage no tobacco use, andencourage regular mammograms starting age 40. Patient presents for annual well woman exam. Patient denies concerns today. UBALDO DURON NP [address], [place], [address], [facility] 12/16/2024 09:48:54 OBGyn Episode No OBEpisode recorded.
[2025-01-27 07:42] VITALS: BP 147/98; PULSE 99; RESP 18; TEMP 36.4; O2SAT 100
[2025-01-27 07:46] LABS: BEDSIDEPREGUCG Negative (Negative)
[2025-01-27] MEDS: LACTATED RINGERS 1,000 ML 150 ML IV CONT (07:53)
--- NOTE | 2025-01-27 08:27 | WPDANESEPPF ---
Anes - Initial Pre Proc Eval Procedure: Operation Date: 01/27/25 09:00 Proposed Procedures p Screening Colonoscopy - Yeison Brown MD Date/Time: 01/27/25 08:27 Surgeon: Yeison Brown MD Pre Op Diagnosis: Screening Patient Data Age: 45 Gender: F Height: 1.63 m Weight: 75.6 kg Last Vital Signs Temp 97.5 F L 01/27/25 07:42 Pulse 99 01/27/25 07:42 Resp 18 01/27/25 07:42 BP 147/98 H 01/27/25 07:42 Pulse Ox 100 01/27/25 07:42 O2 Del Method Room Air 01/27/25 07:42 Allergies Allergy/AdvReac Type Severity Reaction Status Date / Time Sulfa (Sulfonamide Allergy Intermediate Hives Verified 01/27/25 07:41 Antibiotics) Home Medications ?Medication ?Instructions ?Recorded ?Confirmed ?Type No Home Medications 01/13/25 01/27/25 History Laboratory Tests 01/27/25 07:42 POC Urine HCG, Qual Negative (Negative) Patient hx anesthesia problems: none Family hx anesthesia problems: none Results Review: All pre-operative results and documents have been reviewed as part of the pre-operative evaluation. [facility] Surgical History Surgical History H/O LEEP Hx of tonsillectomy [place] teeth removed Family History Family History Mother Patient's mother is in good health Sibling Patient's brother is in good health Grandparent Hypertension Heart problem Father Lung cancer Social History Social History Smoking status: Never smoker Alcohol intake: never Alcohol use details: every weekend Substance use: never Substance use type: does not use Lack of Transportation: No Lack of Food: Never True Current Housing: I Have Housing Concerned About Future Housing: No Difficulty Paying Gas/Electric Bills: No Difficulty Paying for Meds: No Currently Unemployed: No Education: Bachelor's Degree Difficulty w/ Childcare or Family Care: No Living arrangements: with family Occupation/Education: occupation Gender identity (if verbalized by the patient): Female Spiritual care concerns: No Agree to blood products: Yes Anes - Eval Final PreProcedure Day of Procedure 01/27/25 08:27 Patient weight: overweight Lungs: normal air movement Airway: Mallampati scale class II Neurological: alert and oriented Last oral intake: >/= 8 hours ASA classification: I Emergent: no Anesthetic plan: proceed Anesthesia type and monitoring: general GIVS and standard monitoring Results Review: All pre-operative results and documents have been reviewed as part of the pre-operative evaluation. BMI 28, overall good health. Informed Consent: The patient's anesthetic plan and its attendant risks and benefits were discussed with the patient/family/POA. Questions were solicited and answers provided to the satisfaction of the patient/family/POA.
--- NOTE | 2025-01-27 08:49 | PM.HPGS ---
History of Present Illness History of Present Illness Consent: Risks, benefits, and alternatives have been discussed and questions answered. Patient agrees to proceed with procedure. Chief complaint: Screening Narrative: Trish Nieto is a 45 year old female here for first screening colonoscopy Review of Systems Review of Systems: All systems reviewed & are unremarkable except as noted in HPI and below [facility], [facility] Surgical History Surgical History H/O LEEP Hx of tonsillectomy [place] teeth removed Family History Family History Mother Patient's mother is in good health Sibling Patient's brother is in good health Grandparent Hypertension Heart problem Father Lung cancer Social History Social History Smoking status: Never smoker Alcohol intake: never Alcohol use details: every weekend Substance use: never Substance use type: does not use Lack of Transportation: No Lack of Food: Never True Current Housing: I Have Housing Concerned About Future Housing: No Difficulty Paying Gas/Electric Bills: No Difficulty Paying for Meds: No Currently Unemployed: No Education: Bachelor's Degree Difficulty w/ Childcare or Family Care: No Living arrangements: with family Occupation/Education: occupation Gender identity (if verbalized by the patient): Female Spiritual care concerns: No Agree to blood products: Yes Meds Home Medications and Allergies Home Medications ?Medication ?Instructions ?Recorded ?Confirmed ?Type No Home Medications 01/13/25 01/27/25 History Allergies Allergy/AdvReac Type Severity Reaction Status Date / Time Sulfa (Sulfonamide Allergy Intermediate Hives Verified 01/27/25 07:41 Antibiotics) Vital Signs Vital Signs - 24 hr 01/27/25 07:42 Temperature 97.5 F L Pulse Rate 99 Respiratory Rate 18 Blood Pressure 147/98 H Pulse Oximetry 100 Oxygen Delivery Room Air Exam Const: General: comfortable and no acute distress HENMT: Face/Nose/Sinus: Normal nares present Eyes: General: appearance normal, both eyes and all related structures Neck: Neck: no JVD Resp: Auscultation: clear to auscultation bilaterally Cardio: Rate: regular rate Rhythm: regular rhythm GI: Inspection: non-distended GI Palp: Yes Soft to palpation Skin: General skin exam: normal color Psych: Mental Status: mental status grossly normal Assessment and Plan Assessment and plan (1) Screening for colon cancer: Code(s): Z12.11 - Encounter for screening for malignant neoplasm of colon Status: Acute Assessment and Plan: colonoscopy
[2025-01-27 09:07] VITALS: BP 116/79; PULSE 82; RESP 19; O2SAT 99
[2025-01-27 09:17] VITALS: BP 148/94; PULSE 85; RESP 21; O2SAT 100
[2025-01-27 09:27] VITALS: BP 121/81; PULSE 77; RESP 17; O2SAT 98
== END 2025-01-27 09:29 | disposition home or self-care (01) ==
PROVIDERS: Anesthesiology; PCP Internal Medicine; Referring Provider Nurse Practitioner; Visit Provider Internal Medicine Gastroenterology
PROC: 0DJD8ZZ Inspection of Lower Intestinal Tract, Via Natural or Artificial Opening Endoscopic (ICD-10-PCS; CPT 45378; principal; 2025-01-27 09:00)
DX: Z12.11 Encounter for screening for malignant neoplasm of colon (principal); K57.30 Diverticulosis of large intestine without perforation or abscess without bleeding; K64.8 Other hemorrhoids
CPT/HCPCS: 45378; J2003; J2704; J7120

== ENCOUNTER 2025-02-02 09:31 | Outpatient (CLI) | payer OTHER, SELFPAY ==
--- NOTE | ~2025-02-02 | MM_ITS ---
EXAMINATION: MM screening mary BI w aldair HISTORY: Screening. TECHNIQUE: Craniocaudal and mediolateral oblique 3-D tomosynthesis images were obtained and synthetic 2-D images were generated. CAD analysis was submitted and interpreted. COMPARISON: None available. BREAST PARENCHYMAL COMPOSITION: Dense: The breasts are heterogeneously dense, which may obscure small masses. FINDINGS: No suspicious masses are seen. There are no suspicious calcifications. No unexplained architectural distortion is seen. There are no skin or nipple abnormalities identified. There is no adenopathy seen on the images submitted. IMPRESSION: No mammographic evidence to suggest malignancy is seen. The patient may return to screening mammography as per ACR guidelines. BI-RADS 1 - Negative. Reviewed, dictated and finalized at location [facility]. [facility]
--- OUTSIDE RECORDS SUMMARY | 2025-02-02 09:52 | XMS_ITS | Clinical Summary ---
Author Organization [facility] [address] Address [address] [place] [address] Care Team Providers Care Upsetter Helper Name Role Phone Bairon Higginbotham DO Primary Care Provider [phone] Allergies Active Allergy Reactions Criticality Noted Date [...] on file Legal Sex Female 12:15 AM [employer]UMPER [employer]ER Gender Identity Not on file Sexual Orientation [...] Plan of Treatment Not on file Insurance [facility] AET SIG [id number] Care Teams Upsetter Helper Relationship Specialty Start Date End Date Bairon Higginbotham DO PCP - General Internal Medicine 10/15/19
== END 2025-02-02 09:32 | disposition home or self-care (01) ==
PROVIDERS: PCP Internal Medicine; Visit Provider Obstetrics & Gynecology
DX: Z12.31 Encounter for screening mammogram for malignant neoplasm of breast (principal)
CPT/HCPCS: 77063; 77067